=== PATIENT | male | born 1945 | race Caucasian/White ===

== ENCOUNTER 2018-12-01 19:44 | Inpatient (IN) | payer MEDICARE, OTHER, SELFPAY ==
[2018-12-01 19:50] VITALS: BP 154/79; PULSE 68; RESP 18; TEMP 36.7; O2SAT 93; BMI 27.3
--- NOTE | 2018-12-01 19:53 | DI.RAD.S_ITS ---
PROCEDURE: XR CHEST 1V INDICATIONS: chest pain TECHNIQUE: One view of the chest was acquired. COMPARISON: [facility], CT, CT CHEST WITHOUT CONTRAST, 06/17/2018, 7:58. [facility], CR, CHEST 1 VIEW, 03/25/2014, 16:53. CXR 05/08/2018. FINDINGS: Surgical changes and devices: None. Lungs and pleura: Low lung volumes. Increased interstitial markings bilaterally which are more conspicuous compared to prior radiograph. No pleural effusions or pneumothorax. Mediastinum: Mediastinal contours appear normal. Aortic arch calcifications. Heart size is mildly enlarged. Bones and chest wall: No suspicious bony lesions. Prior left sided rib fractures. Overlying soft tissues appear unremarkable. IMPRESSION: Increased bilateral interstitial markings. This may represent mild fluid overload or mild centrilobular groundglass opacity due to an infectious process which was seen on prior CT examinations. Dictated by: Mayco Patel M.D. on 12/01/2018 at 20:40 Approved by: Mayco Patel M.D. on 12/01/2018 at 20:44
--- NOTE | 2018-12-01 19:56 | ED.CHESTPAIN ---
HPI - Chest Pain General Chief Complaint: Chest Pain Stated Complaint: chest pain Time Seen by Provider: 12/01/18 19:53 Source: patient Mode of arrival: ambulatory Limitations: no limitations History of Present Illness HPI narrative: Patient is 73-year-old male with history of coronary artery disease stroke presenting with chest pain. It started 3 hours ago while at rest. He said it radiated to both armpits. On the drive over here it stopped. He denies any shortness of breath. He does have 2 stents placed at 2 different times in 2 different places once at [place] and once in [place]. He denies any nausea. No diaphoresis. MD complaint: chest pain Onset (ago): hour(s) (3) Duration: now resolved Onset: during rest Pain location: substernal Severity: severe Quality: tightness Pain radiation: other (Bilateral armpits) Relieving factors: nothing Exacerbating factors: nothing Related Data Allergies Allergy/AdvReac Type Severity Reaction Status Date / Time lisinopril [LISINOPRIL] Allergy Unknown Unverified 08/01/17 12:03 Review of Systems Review of Systems GENERAL: Denies chills, fatigue, malaise, fever, sweats, travel HEENT: Denies sinus pain, ear pain, sore throat, difficulty swallowing, neck pain RESPIRATORY: Denies dyspnea, cough, wheezing, hemoptysis, sputum. CARDIOVASCULAR: See HPI GASTROINTESTINAL: Denies nausea, vomiting, abdominal pain, diarrhea, constipation, melena. : Denies dysuria, frequency, incontinence, hematuria, urinary retention, flank pain. MUSCULOSKELETAL: Denies weakness, joint pain, or bony pain SKIN: No rash, no erythema, no pruritus NEUROLOGIC: Denies weakness, dizziness, headache, numbness, change in speech, confusion PSYCHIATRIC: No concerning psychosocial issues. 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) Family History (Updated 12/01/18 @ 23:16 by ANIBAL Brown) Mother Breast cancer Father Lung cancer Alcoholism in family member Social History (Updated 12/01/18 @ 19:59 by Molly Jim DO) Smoking Status: Never smoker second hand exposure: No alcohol intake: never substance use type: does not use Family History Mother Breast cancer Father Lung cancer Alcoholism in family member Social History Smoking Status: Never smoker second hand exposure: No alcohol intake: never substance use type: does not use Exam Initial Vital Signs Initial Vital Signs: Vital Signs Temperature 98.1 F 12/01/18 19:50 Pulse Rate 68 12/01/18 19:50 Respiratory Rate 18 12/01/18 19:50 Blood Pressure 154/79 H 12/01/18 19:50 Pulse Oximetry 93 12/01/18 19:50 GENERAL: Well-appearing, well-nourished and in no acute distress. HEENT: Head atraumatic,EOMI, pupils reactive, face symmetric, moist mucous membranes CARDIOVASCULAR: Regular rate and rhythm without murmurs, rubs or gallops. RESPIRATORY: Breath sounds equal bilaterally, no wheezes rales or rhonchi. ABDOMEN: Soft, nontender. Normoactive bowel sounds all 4 quadrants. No guarding or rebound. EXTREMITIES: Normal range of motion, no clubbing or edema. Neurovascularly intact NEUROLOGICAL: Alert and oriented x4.Normal gait and speech. Cranial nerves II through XII grossly intact. SKIN: Warm, dry, no laceration, no petechiae, no rashes or lesions. Course Orders Ordered: ED Orders 12/01/18 19:53 XR chest 1V Stat EKG-12 Lead Stat 12/01/18 20:00 B Type Natriuretic Peptide Stat Complete Blood Count AUTO DIFF Stat Comprehensive Metabolic Panel Stat Lipase Stat Partial Thromboplastin Time Stat Prothrombin Time INR Stat Troponin & CK Cardiac Panel Stat 12/01/18 21:49 Troponin I Stat 12/01/18 22:04 EKG-12 Lead Routine 12/01/18 22:46 Education, smoking cessation ONGOING 12/01/18 22:49 EC echo doppler complete Urgent 12/02/18 04:00 Troponin I Routine 12/02/18 05:00 B Type Natriuretic Peptide Routine Complete Blood Count AUTO DIFF Routine Comprehensive Metabolic Panel Routine 12/02/18 09:51 NM mike perf SPECT R&S pharm Urgent 12/02/18 09:52 EC echo doppler complete Urgent 12/02/18 10:00 Troponin I Routine Acetaminophen (Tylenol) 650 mg PO Q6HR PRN PRN Reason: As Needed for Fever/Mild Pain Aspirin (Aspirin Ec) 81 mg PO DAILY [facility] Bisacodyl (Dulcolax) 10 mg PO DAILY PRN PRN Reason: Constipation Enoxaparin Sodium (Lovenox) 40 mg SUBCUT DAILY [facility] Sodium Chloride (Normal Saline 0.9%) 1,000 mls @ 150 mls/hr IV CONT AGUSTINA Last Admin: 12/01/18 20:06 Dose: 150 mls/hr Morphine Sulfate (Morphine) 2 mg IV Q5MIN PRN PRN Reason: Chest Pain Nitroglycerin (Nitrostat) 0.4 mg SL [id number] PRN PRN Reason: Chest Pain Ondansetron HCl (Zofran) 4 mg IV Q8HR PRN PRN Reason: Nausea And Vomiting Discontinued Medications Aspirin (Aspirin Chew) 324 mg PO NOW ONE Stop: 12/01/18 19:54 Last Admin: 12/01/18 20:05 Dose: 324 mg Consultations Consultation #1: I spoke with hospitalist Dr. Bains at [facility]. He was able to look at patient's records. He had heart catheterization in July 2017 which did not show any stenosis. Stents appeared pain. He does have chronic occlusion of his right coronary artery. He saw Dr. Helton is commercial appraiser July 2017. He has stents in his LAD, no testing ordered at that time. States that nuclear stress test would be ordered here. If test is available [facility] no indication for transfer. Time: 20:53 Consultation #2: Dr. Uvaldo Garcia commercial appraiser at [facility], is updated patient's symptoms test results. At this time there is no indication for cardiac catheterization. Also recommends nuclear stress test Time: 21:05 Consultation #3: Paulette BARNETT, updated patient's symptoms test results finance consultant recommendations. In ED to see and evaluate patient. Patient is accepted to observation Time: 21:43 Vital Signs - 8 hr 12/01/18 19:50 12/01/18 20:30 12/01/18 21:00 Temperature 98.1 F Pulse Rate 68 56 L 58 L Respiratory Rate 18 22 17 Blood Pressure 154/79 H Blood Pressure [Right Arm] 134/58 L 140/61 Pulse Oximetry 93 94 97 12/01/18 21:30 Temperature Pulse Rate 57 L Respiratory Rate 19 Blood Pressure Blood Pressure [Right Arm] 131/60 Pulse Oximetry 93 MDM - Chest Pain Lab Data Attestation: I reviewed the patient's lab results. Result diagrams: 12/01/18 20:00 12/01/18 20:00 Lab Results 12/01/18 12/01/18 12/01/18 Range/Units 20:00 20:00 20:00 WBC 7.9 (4.5-11.0) X10^3/uL RBC 4.54 (4.5-5.9) X10^6/uL Hgb 13.9 (13.5-17.5) g/dL Hct 41.2 (41-53) % MCV 90.7 (80-100) fL MCH 30.7 (26-34) PG MCHC 33.9 (30-36) % RDW 17.1 H (11.6-14.8) % Plt Count 256 (150-400) X10^3/uL Neut % (Auto) 44.7 L (50-75) % Lymph % (Auto) 37.9 (25-40) % [place] % (Auto) 10.6 (3-14) % Eos % (Auto) 5.6 H (2-4) % Baso % (Auto) 1.2 (0-2) % Neut # (Auto) 3500 (7478-1548) /uL Lymph # (Auto) 3000 (7965-7822) /uL [place] # (Auto) 800 (0-900) /uL Eos # (Auto) 400 (0-450) /uL Baso # (Auto) 100 (0-100) /uL PT 13.6 H (10.1-12.7) SECONDS INR 1.2 (0.9-1.3) APTT 35 (26.4-36.2) SECONDS Sodium 142 (137-145) mmol/L Potassium 4.0 (3.4-5.1) mmol/L Chloride 107 (98-107) mmol/L Carbon Dioxide 29 (22-32) mmol/L BUN 29 H (9-20) mg/dL Creatinine 1.00 (0.66-1.25) mg/dL Estimated GFR > 60.0 (>60) mL/min BUN/Creatinine Ratio 29.0 H (6-22) Glucose 101 (80-110) mg/dL Calcium 9.1 (8.4-10.2) mg/dL Total Bilirubin 0.5 (0.2-1.3) mg/dL AST 25 (17-59) IU/L ALT 21 (21-72) IU/L Alkaline Phosphatase 85 (38-126) U/L Total Creatine Kinase 82 (55-170) U/L CK-MB (CK-2) TNP CK-MB (CK-2) Rel Index TNP Troponin I < 0.012 (0.01-0.034) ng/mL B-Natriuretic Peptide 176 H (<100) Total Protein 6.8 (6.3-8.2) g/dL Albumin 3.5 (3.5-5.0) g/dL Globulin 3.3 (1.7-4.1) g/dL Albumin/Globulin Ratio 1.1 (1.0-2.8) Lipase 66 (23-300) U/L 12/01/18 Range/Units 21:49 WBC (4.5-11.0) X10^3/uL RBC (4.5-5.9) X10^6/uL Hgb (13.5-17.5) g/dL Hct (41-53) % MCV (80-100) fL MCH (26-34) PG MCHC (30-36) % RDW (11.6-14.8) % Plt Count (150-400) X10^3/uL Neut % (Auto) (50-75) % Lymph % (Auto) (25-40) % [place] % (Auto) (3-14) % Eos % (Auto) (2-4) % Baso % (Auto) (0-2) % Neut # (Auto) (4874-2513) /uL Lymph # (Auto) (6885-3471) /uL [place] # (Auto) (0-900) /uL Eos # (Auto) (0-450) /uL Baso # (Auto) (0-100) /uL PT (10.1-12.7) SECONDS INR (0.9-1.3) APTT (26.4-36.2) SECONDS Sodium (137-145) mmol/L Potassium (3.4-5.1) mmol/L Chloride (98-107) mmol/L Carbon Dioxide (22-32) mmol/L BUN (9-20) mg/dL Creatinine (0.66-1.25) mg/dL Estimated GFR (>60) mL/min BUN/Creatinine Ratio (6-22) Glucose (80-110) mg/dL Calcium (8.4-10.2) mg/dL Total Bilirubin (0.2-1.3) mg/dL AST (17-59) IU/L ALT (21-72) IU/L Alkaline Phosphatase (38-126) U/L Total Creatine Kinase (55-170) U/L CK-MB (CK-2) CK-MB (CK-2) Rel Index Troponin I 0.016 (0.01-0.034) ng/mL B-Natriuretic Peptide (<100) Total Protein (6.3-8.2) g/dL Albumin (3.5-5.0) g/dL Globulin (1.7-4.1) g/dL Albumin/Globulin Ratio (1.0-2.8) Lipase (23-300) U/L Imaging Data Chest x-ray: Radiologist's impression: PROCEDURE: XR CHEST 1V INDICATIONS: chest pain TECHNIQUE: One view of the chest was acquired. COMPARISON: [facility], CT, CT CHEST WITHOUT CONTRAST, 06/17/2018, 7:58. [facility], CR, CHEST 1 VIEW, 03/25/2014, 16:53. CXR 05/08/2018. FINDINGS: Surgical changes and devices: None. Lungs and pleura: Low lung volumes. Increased interstitial markings bilaterally which are more conspicuous compared to prior radiograph. No pleural effusions or pneumothorax. Mediastinum: Mediastinal contours appear normal. Aortic arch calcifications. Heart size is mildly enlarged. Bones and chest wall: No suspicious bony lesions. Prior left sided rib fractures. Overlying soft tissues appear unremarkable. IMPRESSION: Increased bilateral interstitial markings. This may represent mild fluid overload or mild centrilobular groundglass opacity due to an infectious process which was seen on prior CT examinations. Dictated by: Mayco Patel M.D. on 12/01/2018 at 20:40 ECG Data Attestation: I personally reviewed and interpreted this ECG as follows: Prior ECG tracings: available for review Interpretation: Normal sinus rhythm rate 65 year interval 255 Q-wave noted lead [address] depressions no ST elevations no T-wave inversion EKG 2. Sinus rhythm rate 56 P are interval 274 similar to prior no ST changes 1st degree AV block noted in a previous EKG in 2014 MDM Narrative Medical decision making narrative: The patient has been chest pain-free since he has been in the emergency department. No acute EKG changes and troponin is negative. Discussed with patient and about staying in the hospital for further testing and evaluation. Discussed stress testing such as treadmill which he is unable to do because of his stroke nuclear stress test. states that she does not want a nuclear stress test because he had a nuclear stress test and then immediately after had his stroke. However I spoke with Cardiology and other consultants nuclear stress test and stroke are completely unrelated events, patient will be getting a nuclear stress test at [facility] if he were to be transferred. I have explained this to the and the patient. They are agreed to stay [facility] and have a nuclear stress test. Discharge Plan Departure Admit Date/Time: 12/01/18 21:54 Admit Provider: Nadya Mc
--- NOTE | 2018-12-01 19:59 | ED_ITS ---
HPI - Chest Pain General Chief Complaint: Chest Pain Stated Complaint: chest pain Time Seen by Provider: 12/01/18 19:53 Source: patient Mode of arrival: ambulatory Limitations: no limitations History of Present Illness HPI narrative: Patient is 73-year-old male with history of coronary artery disease stroke presenting with chest pain. It started 3 hours ago while at rest. He said it radiated to both armpits. On the drive over here it stopped. He denies any shortness of breath. He does have 2 stents placed at 2 different times in 2 different places once at [place] and once in [place]. He denies any nausea. No diaphoresis. MD complaint: chest pain Onset (ago): hour(s) (3) Duration: now resolved Onset: during rest Pain location: substernal Severity: severe Quality: tightness Pain radiation: other (Bilateral armpits) Relieving factors: nothing Exacerbating factors: nothing Related Data Allergies Allergy/AdvReac Type Severity Reaction Status Date / Time lisinopril [LISINOPRIL] Allergy Unknown Unverified 08/01/17 12:03 Review of Systems Review of Systems GENERAL: Denies chills, fatigue, malaise, fever, sweats, travel HEENT: Denies sinus pain, ear pain, sore throat, difficulty swallowing, neck pain RESPIRATORY: Denies dyspnea, cough, wheezing, hemoptysis, sputum. CARDIOVASCULAR: See HPI GASTROINTESTINAL: Denies nausea, vomiting, abdominal pain, diarrhea, constipation, melena. : Denies dysuria, frequency, incontinence, hematuria, urinary retention, flank pain. MUSCULOSKELETAL: Denies weakness, joint pain, or bony pain SKIN: No rash, no erythema, no pruritus NEUROLOGIC: Denies weakness, dizziness, headache, numbness, change in speech, confusion PSYCHIATRIC: No concerning psychosocial issues. 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) Family History (Updated 12/01/18 @ 23:16 by ANIBAL Brown) Mother Breast cancer Father Lung cancer Alcoholism in family member Social History (Updated 12/01/18 @ 19:59 by Molly Jim DO) Smoking Status: Never smoker second hand exposure: No alcohol intake: never substance use type: does not use Family History Mother Breast cancer Father Lung cancer Alcoholism in family member Social History Smoking Status: Never smoker second hand exposure: No alcohol intake: never substance use type: does not use Exam Initial Vital Signs Initial Vital Signs: Vital Signs Temperature 98.1 F 12/01/18 19:50 Pulse Rate 68 12/01/18 19:50 Respiratory Rate 18 12/01/18 19:50 Blood Pressure 154/79 H 12/01/18 19:50 Pulse Oximetry 93 12/01/18 19:50 GENERAL: Well-appearing, well-nourished and in no acute distress. HEENT: Head atraumatic,EOMI, pupils reactive, face symmetric, moist mucous membranes CARDIOVASCULAR: Regular rate and rhythm without murmurs, rubs or gallops. RESPIRATORY: Breath sounds equal bilaterally, no wheezes rales or rhonchi. ABDOMEN: Soft, nontender. Normoactive bowel sounds all 4 quadrants. No guarding or rebound. EXTREMITIES: Normal range of motion, no clubbing or edema. Neurovascularly intact NEUROLOGICAL: Alert and oriented x4.Normal gait and speech. Cranial nerves II through XII grossly intact. SKIN: Warm, dry, no laceration, no petechiae, no rashes or lesions. Course Orders Ordered: ED Orders 12/01/18 19:53 XR chest 1V Stat EKG-12 Lead Stat 12/01/18 20:00 B Type Natriuretic Peptide Stat Complete Blood Count AUTO DIFF Stat Comprehensive Metabolic Panel Stat Lipase Stat Partial Thromboplastin Time Stat Prothrombin Time INR Stat Troponin & CK Cardiac Panel Stat 12/01/18 21:49 Troponin I Stat 12/01/18 22:04 EKG-12 Lead Routine 12/01/18 22:46 Education, smoking cessation ONGOING 12/01/18 22:49 EC echo doppler complete Urgent 12/02/18 04:00 Troponin I Routine 12/02/18 05:00 B Type Natriuretic Peptide Routine Complete Blood Count AUTO DIFF Routine Comprehensive Metabolic Panel Routine 12/02/18 09:51 NM mike perf SPECT R&S pharm Urgent 12/02/18 09:52 EC echo doppler complete Urgent 12/02/18 10:00 Troponin I Routine Acetaminophen (Tylenol) 650 mg PO Q6HR PRN PRN Reason: As Needed for Fever/Mild Pain Aspirin (Aspirin Ec) 81 mg PO DAILY [facility] Bisacodyl (Dulcolax) 10 mg PO DAILY PRN PRN Reason: Constipation Enoxaparin Sodium (Lovenox) 40 mg SUBCUT DAILY [facility] Sodium Chloride (Normal Saline 0.9%) 1,000 mls @ 150 mls/hr IV CONT AGUSTINA Last Admin: 12/01/18 20:06 Dose: 150 mls/hr Morphine Sulfate (Morphine) 2 mg IV Q5MIN PRN PRN Reason: Chest Pain Nitroglycerin (Nitrostat) 0.4 mg SL [id number] PRN PRN Reason: Chest Pain Ondansetron HCl (Zofran) 4 mg IV Q8HR PRN PRN Reason: Nausea And Vomiting Discontinued Medications Aspirin (Aspirin Chew) 324 mg PO NOW ONE Stop: 12/01/18 19:54 Last Admin: 12/01/18 20:05 Dose: 324 mg Consultations Consultation #1: I spoke with hospitalist Dr. Bains at [facility]. He was able to look at patient's records. He had heart catheterization in July 2017 which did not show any stenosis. Stents appeared pain. He does have chronic occlusion of his right coronary artery. He saw Dr. Helton is platform operations director July 2017. He has stents in his LAD, no testing ordered at that time. States that nuclear stress test would be ordered here. If test is available [facility] no indication for transfer. Time: 20:53 Consultation #2: Dr. Uvaldo Garcia platform operations director [facility], is updated patient's symptoms test results. At this time there is no indication for cardiac catheterization. Also recommends nuclear stress test Time: 21:05 Consultation #3: Paulette BARNETT, updated patient's symptoms test results delivery consultant recommendations. In ED to see and evaluate patient. Patient is accepted to observation Time: 21:43 Vital Signs - 8 hr 12/01/18 19:50 12/01/18 20:30 12/01/18 21:00 Temperature 98.1 F Pulse Rate 68 56 L 58 L Respiratory Rate 18 22 17 Blood Pressure 154/79 H Blood Pressure [Right Arm] 134/58 L 140/61 Pulse Oximetry 93 94 97 12/01/18 21:30 Temperature Pulse Rate 57 L Respiratory Rate 19 Blood Pressure Blood Pressure [Right Arm] 131/60 Pulse Oximetry 93 MDM - Chest Pain Lab Data Attestation: I reviewed the patient's lab results. Result diagrams: 12/01/18 20:00 12/01/18 20:00 Lab Results 12/01/18 12/01/18 12/01/18 Range/Units 20:00 20:00 20:00 WBC 7.9 (4.5-11.0) X10^3/uL RBC 4.54 (4.5-5.9) X10^6/uL Hgb 13.9 (13.5-17.5) g/dL Hct 41.2 (41-53) % MCV 90.7 (80-100) fL MCH 30.7 (26-34) PG MCHC 33.9 (30-36) % RDW 17.1 H (11.6-14.8) % Plt Count 256 (150-400) X10^3/uL Neut % (Auto) 44.7 L (50-75) % Lymph % (Auto) 37.9 (25-40) % [place] % (Auto) 10.6 (3-14) % Eos % (Auto) 5.6 H (2-4) % Baso % (Auto) 1.2 (0-2) % Neut # (Auto) 3500 (8156-4756) /uL Lymph # (Auto) 3000 (2223-0458) /uL [place] # (Auto) 800 (0-900) /uL Eos # (Auto) 400 (0-450) /uL Baso # (Auto) 100 (0-100) /uL PT 13.6 H (10.1-12.7) SECONDS INR 1.2 (0.9-1.3) APTT 35 (26.4-36.2) SECONDS Sodium 142 (137-145) mmol/L Potassium 4.0 (3.4-5.1) mmol/L Chloride 107 (98-107) mmol/L Carbon Dioxide 29 (22-32) mmol/L BUN 29 H (9-20) mg/dL Creatinine 1.00 (0.66-1.25) mg/dL Estimated GFR > 60.0 (>60) mL/min BUN/Creatinine Ratio 29.0 H (6-22) Glucose 101 (80-110) mg/dL Calcium 9.1 (8.4-10.2) mg/dL Total Bilirubin 0.5 (0.2-1.3) mg/dL AST 25 (17-59) IU/L ALT 21 (21-72) IU/L Alkaline Phosphatase 85 (38-126) U/L Total Creatine Kinase 82 (55-170) U/L CK-MB (CK-2) TNP CK-MB (CK-2) Rel Index TNP Troponin I < 0.012 (0.01-0.034) ng/mL B-Natriuretic Peptide 176 H (<100) Total Protein 6.8 (6.3-8.2) g/dL Albumin 3.5 (3.5-5.0) g/dL Globulin 3.3 (1.7-4.1) g/dL Albumin/Globulin Ratio 1.1 (1.0-2.8) Lipase 66 (23-300) U/L 12/01/18 Range/Units 21:49 WBC (4.5-11.0) X10^3/uL RBC (4.5-5.9) X10^6/uL Hgb (13.5-17.5) g/dL Hct (41-53) % MCV (80-100) fL MCH (26-34) PG MCHC (30-36) % RDW (11.6-14.8) % Plt Count (150-400) X10^3/uL Neut % (Auto) (50-75) % Lymph % (Auto) (25-40) % [place] % (Auto) (3-14) % Eos % (Auto) (2-4) % Baso % (Auto) (0-2) % Neut # (Auto) (0306-2009) /uL Lymph # (Auto) (1516-6899) /uL [place] # (Auto) (0-900) /uL Eos # (Auto) (0-450) /uL Baso # (Auto) (0-100) /uL PT (10.1-12.7) SECONDS INR (0.9-1.3) APTT (26.4-36.2) SECONDS Sodium (137-145) mmol/L Potassium (3.4-5.1) mmol/L Chloride (98-107) mmol/L Carbon Dioxide (22-32) mmol/L BUN (9-20) mg/dL Creatinine (0.66-1.25) mg/dL Estimated GFR (>60) mL/min BUN/Creatinine Ratio (6-22) Glucose (80-110) mg/dL Calcium (8.4-10.2) mg/dL Total Bilirubin (0.2-1.3) mg/dL AST (17-59) IU/L ALT (21-72) IU/L Alkaline Phosphatase (38-126) U/L Total Creatine Kinase (55-170) U/L CK-MB (CK-2) CK-MB (CK-2) Rel Index Troponin I 0.016 (0.01-0.034) ng/mL B-Natriuretic Peptide (<100) Total Protein (6.3-8.2) g/dL Albumin (3.5-5.0) g/dL Globulin (1.7-4.1) g/dL Albumin/Globulin Ratio (1.0-2.8) Lipase (23-300) U/L Imaging Data Chest x-ray: Radiologist's impression: PROCEDURE: XR CHEST 1V INDICATIONS: chest pain TECHNIQUE: One view of the chest was acquired. COMPARISON: [facility], CT, CT CHEST WITHOUT CONTRAST, 06/17/2018, 7:58. [facility], CR, CHEST 1 VIEW, 03/25/2014, 16:53. CXR 05/08/2018. FINDINGS: Surgical changes and devices: None. Lungs and pleura: Low lung volumes. Increased interstitial markings bilaterally which are more conspicuous compared to prior radiograph. No pleural effusions or pneumothorax. Mediastinum: Mediastinal contours appear normal. Aortic arch calcifications. Heart size is mildly enlarged. Bones and chest wall: No suspicious bony lesions. Prior left sided rib fractures. Overlying soft tissues appear unremarkable. IMPRESSION: Increased bilateral interstitial markings. This may represent mild fluid overload or mild centrilobular groundglass opacity due to an infectious process which was seen on prior CT examinations. Dictated by: Mayco Patel M.D. on 12/01/2018 at 20:40 ECG Data Attestation: I personally reviewed and interpreted this ECG as follows: Prior ECG tracings: available for review Interpretation: Normal sinus rhythm rate 65 year interval 255 Q-wave noted lead [address] depressions no ST elevations no T-wave inversion EKG 2. Sinus rhythm rate 56 P are interval 274 similar to prior no ST changes 1st degree AV block noted in a previous EKG in 2014 MDM Narrative Medical decision making narrative: The patient has been chest pain-free since he has been in the emergency department. No acute EKG changes and troponin is negative. Discussed with patient and about staying in the hospital for further testing and evaluation. Discussed stress testing such as treadmill which he is unable to do because of his stroke nuclear stress test. states that she does not want a nuclear stress test because he had a nuclear stress test and then immediately after had his stroke. However I spoke with Cardiology and other consultants nuclear stress test and stroke are completely unrelated events, patient will be getting a nuclear stress test at [facility] if he were to be transferred. I have explained this to the and the patient. They are agreed to stay [facility] and have a nuclear stress test. Discharge Plan Departure Admit Date/Time: 12/01/18 21:54 Admit Provider: Nadya Mc
[2018-12-01] MEDS: ASPIRIN 81 MG TAB 324 MG PO (20:05)
[2018-12-01] MEDS: SODIUM CHLORIDE 0.9% 1,000 ML 150 ML IV (20:06)
[2018-12-01 20:09] LABS: Add Manual Diff / Slide Review NO; Basophils Absolute Auto 100 /uL (0-100); Basophils Percent Auto 1.2 % (0-2); Eosinophils Absolute Auto 400 /uL (0-450); Eosinophils Percent Auto 5.6 % (2-4); Hematocrit 41.2 % (41-53); Hemoglobin 13.9 g/dL (13.5-17.5); Lymphocytes Absolute Auto 3000 /uL (1100-4500); Lymphocytes Percent Auto 37.9 % (25-40); Mean Corpuscular HGB Conc 33.9 % (30-36); Mean Corpuscular Hemoglobin 30.7 PG (26-34); Mean Corpuscular Volume 90.7 fL (80-100); Monocytes Absolute Auto 800 /uL (0-900); Monocytes Percent Auto 10.6 % (3-14); Neutrophils Absolute Auto 3500 /uL (1500-7000); Neutrophils Percent Auto 44.7 % (50-75); Platelet Count 256 X10^3/uL (150-400); Red Blood Cell Count 4.54 X10^6/uL (4.5-5.9); Red Cell Distribution Width 17.1 % (11.6-14.8); White Blood Cell Count 7.9 X10^3/uL (4.5-11.0)
[2018-12-01 20:15] LABS: INR 1.2 (0.9-1.3); Prothrombin Time 13.6 SECONDS (10.1-12.7)
[2018-12-01 20:17] LABS: PTT Partial Thromboplastin Tim 35 SECONDS (26.4-36.2)
[2018-12-01 20:19] LABS: Alanine Aminotransferase 21 IU/L (21-72); Albumin 3.5 g/dL (3.5-5.0); Albumin Globulin Ratio 1.1 (1.0-2.8); Alkaline Phosphatase 85 U/L (38-126); Aspartate Aminotransferase 25 IU/L (17-59); Bilirubin Total 0.5 mg/dL (0.2-1.3); Blood Urea Nitrogen 29 mg/dL (9-20); Calcium 9.1 mg/dL (8.4-10.2); Carbon Dioxide 29 mmol/L (22-32); Chloride 107 mmol/L (98-107); Creatine Kinase 82 U/L (55-170); Estimated Glomerular Filt Rate > 60.0 mL/min (>60); Globulin 3.3 g/dL (1.7-4.1); Glucose 101 mg/dL (80-110); HEMOLYSIS < 15 (0-50); Lipase 66 U/L (23-300); Sodium 142 mmol/L (137-145); Total Protein 6.8 g/dL (6.3-8.2)
[2018-12-01 20:30] VITALS: BP 134/58; PULSE 56; RESP 22; O2SAT 94
[2018-12-01 20:31] LABS: B Type Natriuretic Peptide 176 (<100); Troponin I < 0.012 ng/mL (0.01-0.034)
[2018-12-01 21:00] VITALS: BP 140/61; PULSE 58; RESP 17; O2SAT 97
[2018-12-01 21:30] VITALS: BP 131/60; PULSE 57; RESP 19; O2SAT 93
[2018-12-01 22:19] LABS: Troponin I 0.016 ng/mL (0.01-0.034)
--- NOTE | 2018-12-01 23:04 | PM.HP.1 ---
History of Present Illness Date Patient Seen: 12/01/18 Time Patient Seen: 22:15 Chief complaint: chest pain Narrative: William Bridges is a 73-year-old male with history of coronary artery disease stroke who presented at around 1930 to the ED with chest pain. He said it is located mid-sternum and radiated to both arms. By the time he reached the ED, the pain stopped. He denies any, headache, cough, shortness of breath, nausea or vomiting, abdominal pain, diarrhea or constipation, numbing or tingling. He has a history of 2 coronary stents placed at 2 different times once at [place] and once in [place]. His paper machine supervisor is Dr. Mikel Helton in [place]. He does state he has diabetes insipidus and if he does not take his evening dose of despmopressin, he has to urinate all night. He sees Dr. Conte motor carrier inspector for this. He does endorse frequent falls, is diagnosed with spinal cerebellar ataxia and sees Dr. Ventura Carcamo, neurologist. 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) Social History (Updated 12/01/18 @ 19:59 by Molly Jim DO) Smoking Status: Never smoker second hand exposure: No alcohol intake: never substance use type: does not use Family & Social History Family History Mother Breast cancer Father Lung cancer Alcoholism in family member Safety & Behavioral: Feels Safe in Current Yes Environment Tobacco & Substance use: Smoking Status smokes 2 cigars/day alcohol intake Beer daily Substance Use Type does not use Meds Allergies Allergy/AdvReac Type Severity Reaction Status Date / Time lisinopril [LISINOPRIL] Allergy Unknown Unverified 08/01/17 12:03 Review of Systems Review of Systems All systems reviewed & are unremarkable except as noted in HPI and below Exam Vital Signs (past 8 hours): - 12/01/18 19:50 12/01/18 20:30 12/01/18 21:00 Temperature 98.1 F Pulse Rate 68 56 L 58 L Respiratory Rate 18 22 17 Blood Pressure 154/79 H Blood Pressure [Right Arm] 134/58 L 140/61 Pulse Oximetry 93 94 97 12/01/18 21:30 Temperature Pulse Rate 57 L Respiratory Rate 19 Blood Pressure Blood Pressure [Right Arm] 131/60 Pulse Oximetry 93 Oxygen Delivery Method Room Air Narrative Exam Narrative: Gen: Alert, oriented 73 y.o. chronically ill appearing male HEENT: normocephalic, atraumatic, left eyelid droop, oral mucosa pink and moist, poor dentition Neck: supple, full ROM Resp: Lungs CTA, non-labored breathing CV: Distant, murmur grade 2/6 Abd: soft, non-tender, normoactive BTs Skin: multiple bruises and superficial scratches Neuro: Alert and oriented X 3 with residual left sided weakness, very [place] Extremities: moves all 4 extremities, is ambulatory with a walking stick Psyche: normal mood and affect. Objective Labs Result Diagrams: 12/01/18 20:00 12/01/18 20:00 Labs: Laboratory Results - last 24 hr 12/01/18 12/01/18 12/01/18 20:00 20:00 20:00 WBC 7.9 RBC 4.54 Hgb 13.9 Hct 41.2 MCV 90.7 MCH 30.7 MCHC 33.9 RDW 17.1 H Plt Count 256 Neut % (Auto) 44.7 L Lymph % (Auto) 37.9 [facility] % (Auto) 10.6 Eos % (Auto) 5.6 H Baso % (Auto) 1.2 Neut # (Auto) 3500 Lymph # (Auto) 3000 [facility] # (Auto) 800 Eos # (Auto) 400 Baso # (Auto) 100 PT 13.6 H INR 1.2 APTT 35 Sodium 142 Potassium 4.0 Chloride 107 Carbon Dioxide 29 BUN 29 H Creatinine 1.00 Estimated GFR > 60.0 BUN/Creatinine Ratio 29.0 H Glucose 101 Calcium 9.1 Total Bilirubin 0.5 AST 25 ALT 21 Alkaline Phosphatase 85 Total Creatine Kinase 82 CK-MB (CK-2) TNP CK-MB (CK-2) Rel Index TNP Troponin I < 0.012 B-Natriuretic Peptide 176 H Total Protein 6.8 Albumin 3.5 Globulin 3.3 Albumin/Globulin Ratio 1.1 Lipase 66 12/01/18 21:49 WBC RBC Hgb Hct MCV MCH MCHC RDW Plt Count Neut % (Auto) Lymph % (Auto) [facility] % (Auto) Eos % (Auto) Baso % (Auto) Neut # (Auto) Lymph # (Auto) [facility] # (Auto) Eos # (Auto) Baso # (Auto) PT INR APTT Sodium Potassium Chloride Carbon Dioxide BUN Creatinine Estimated GFR BUN/Creatinine Ratio Glucose Calcium Total Bilirubin AST ALT Alkaline Phosphatase Total Creatine Kinase CK-MB (CK-2) CK-MB (CK-2) Rel Index Troponin I 0.016 B-Natriuretic Peptide Total Protein Albumin Globulin Albumin/Globulin Ratio Lipase Assessment & Plan Assessment & Plan narrative: William Bridges will be placed into observation for further evaluation of chest pain. Given his history of coronary artery disease, he is at high risk for a coronary event. 1. Chest pain, acute, present on admission First 2 troponins are negative, however second level is slightly elevated though within a normal range, trend 2 more ASA 81 mg daily Nuclear chemical stress test in the am Dr. Helton's partner Dr. Uvaldo Garcia notified of patient's admission and we will attempt to obtain records in the am. 2. Cardiac murmur, uknown if chronic, present on admission Doppler echo scheduled for the am Patient does not know when the last echo he underwent. 3. Essential hypertension, stable, present on admission Patient's med list did not include an anti-hypertensive, patient should be initiated on a beta julio. 4. Hyperlipidemia, chronic and stable Continue home dose of atorvastatin 20 mg po at bedtime 5. Diabetes insipidus, chronic and stable Patient takes desmopressin 0.2 tablets, 3 tabs tid Patient will be able to take his own supply once Pharmacy has approved. 6. Hypothyroidism, chronic and stable Continue home dose of levothyroxine 75 mcg when confirmed. 7. Mood disorder presumably related to his history of a CVA, chronic and stable Continue home dose of buspirone 15 mg po bid when confirmed Continue home dose of quitiapine 25 mg po bid, this will need to be confirmed as does not think he takes. Patient is admitted as observation as his stay is anticipated to not to exceed 2 midnights. FEN: saline lock, cardiac diet, chemistries in the am VTE Prophylaxis: enoxaparin 40 mg subQ daily Disposition: Unknown at this time Code status: Full Code Admission time: 75 minutes Meds reconciled: No, patient's medi list has not been confirmed. Time Spent With Patient Time with patient: 15-24 minutes Quality VTE Deep Vein Thrombosis/Pulmonary Embolism Present on Admission: No
--- NOTE | 2018-12-01 23:23 | P.HP_ITS ---
History of Present Illness Date Patient Seen: 12/01/18 Time Patient Seen: 22:15 Chief complaint: chest pain Narrative: William Bridges is a 73-year-old male with history of coronary artery disease stroke who presented at around 1930 to the ED with chest pain. He said it is located mid-sternum and radiated to both arms. By the time he reached the ED, the pain stopped. He denies any, headache, cough, shortness of breath, nausea or vomiting, abdominal pain, diarrhea or constipation, numbing or tingling. He has a history of 2 coronary stents placed at 2 different times once at [facility] and once in [place]. His manager foreign is Dr. Mikel Helton in [place]. He does state he has diabetes insipidus and if he does not take his evening dose of despmopressin, he has to urinate all night. He sees Dr. Conte manager hris for this. He does endorse frequent falls, is diagnosed with spinal cerebellar ataxia and sees Dr. Ventura Carcamo, neurologist. 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) Social History (Updated 12/01/18 @ 19:59 by Molly Jim DO) Smoking Status: Never smoker second hand exposure: No alcohol intake: never substance use type: does not use Family & Social History Family History Mother Breast cancer Father Lung cancer Alcoholism in family member Safety & Behavioral: Feels Safe in Current Yes Environment Tobacco & Substance use: Smoking Status smokes 2 cigars/day alcohol intake Beer daily Substance Use Type does not use Meds Allergies Allergy/AdvReac Type Severity Reaction Status Date / Time lisinopril [LISINOPRIL] Allergy Unknown Unverified 08/01/17 12:03 Review of Systems Review of Systems All systems reviewed & are unremarkable except as noted in HPI and below Exam Vital Signs (past 8 hours): - 12/01/18 19:50 12/01/18 20:30 12/01/18 21:00 Temperature 98.1 F Pulse Rate 68 56 L 58 L Respiratory Rate 18 22 17 Blood Pressure 154/79 H Blood Pressure [Right Arm] 134/58 L 140/61 Pulse Oximetry 93 94 97 12/01/18 21:30 Temperature Pulse Rate 57 L Respiratory Rate 19 Blood Pressure Blood Pressure [Right Arm] 131/60 Pulse Oximetry 93 Oxygen Delivery Method Room Air Narrative Exam Narrative: Gen: Alert, oriented 73 y.o. chronically ill appearing male HEENT: normocephalic, atraumatic, left eyelid droop, oral mucosa pink and moist, poor dentition Neck: supple, full ROM Resp: Lungs CTA, non-labored breathing CV: Distant, murmur grade 2/6 Abd: soft, non-tender, normoactive BTs Skin: multiple bruises and superficial scratches Neuro: Alert and oriented X 3 with residual left sided weakness, very YOMBA SHOSHONE Extremities: moves all 4 extremities, is ambulatory with a walking stick Psyche: normal mood and affect. Objective Labs Result Diagrams: 12/01/18 20:00 12/01/18 20:00 Labs: Laboratory Results - last 24 hr 12/01/18 12/01/18 12/01/18 20:00 20:00 20:00 WBC 7.9 RBC 4.54 Hgb 13.9 Hct 41.2 MCV 90.7 MCH 30.7 MCHC 33.9 RDW 17.1 H Plt Count 256 Neut % (Auto) 44.7 L Lymph % (Auto) 37.9 Titus % (Auto) 10.6 Eos % (Auto) 5.6 H Baso % (Auto) 1.2 Neut # (Auto) 3500 Lymph # (Auto) 3000 Titus # (Auto) 800 Eos # (Auto) 400 Baso # (Auto) 100 PT 13.6 H INR 1.2 APTT 35 Sodium 142 Potassium 4.0 Chloride 107 Carbon Dioxide 29 BUN 29 H Creatinine 1.00 Estimated GFR > 60.0 BUN/Creatinine Ratio 29.0 H Glucose 101 Calcium 9.1 Total Bilirubin 0.5 AST 25 ALT 21 Alkaline Phosphatase 85 Total Creatine Kinase 82 CK-MB (CK-2) TNP CK-MB (CK-2) Rel Index TNP Troponin I < 0.012 B-Natriuretic Peptide 176 H Total Protein 6.8 Albumin 3.5 Globulin 3.3 Albumin/Globulin Ratio 1.1 Lipase 66 12/01/18 21:49 WBC RBC Hgb Hct MCV MCH MCHC RDW Plt Count Neut % (Auto) Lymph % (Auto) Titus % (Auto) Eos % (Auto) Baso % (Auto) Neut # (Auto) Lymph # (Auto) Titus # (Auto) Eos # (Auto) Baso # (Auto) PT INR APTT Sodium Potassium Chloride Carbon Dioxide BUN Creatinine Estimated GFR BUN/Creatinine Ratio Glucose Calcium Total Bilirubin AST ALT Alkaline Phosphatase Total Creatine Kinase CK-MB (CK-2) CK-MB (CK-2) Rel Index Troponin I 0.016 B-Natriuretic Peptide Total Protein Albumin Globulin Albumin/Globulin Ratio Lipase Assessment & Plan Assessment & Plan narrative: William Bridges will be placed into observation for further evaluation of chest pain. Given his history of coronary artery disease, he is at high risk for a coronary event. 1. Chest pain, acute, present on admission * First 2 troponins are negative, however second level is slightly elevated though within a normal range, trend 2 more * ASA 81 mg daily * Nuclear chemical stress test in the am * Dr. Helton's partner Dr. Uvaldo Garcia notified of patient's admission and we will attempt to obtain records in the am. 2. Cardiac murmur, uknown if chronic, present on admission * Doppler echo scheduled for the am * Patient does not know when the last echo he underwent. 3. Essential hypertension, stable, present on admission * Patient's med list did not include an anti-hypertensive, patient should be initiated on a beta julio. 4. Hyperlipidemia, chronic and stable * Continue home dose of atorvastatin 20 mg po at bedtime 5. Diabetes insipidus, chronic and stable * Patient takes desmopressin 0.2 tablets, 3 tabs tid * Patient will be able to take his own supply once Pharmacy has approved. 6. Hypothyroidism, chronic and stable * Continue home dose of levothyroxine 75 mcg when confirmed. 7. Mood disorder presumably related to his history of a CVA, chronic and stable * Continue home dose of buspirone 15 mg po bid when confirmed * Continue home dose of quitiapine 25 mg po bid, this will need to be confirmed as does not think he takes. Patient is admitted as observation as his stay is anticipated to not to exceed 2 midnights. FEN: saline lock, cardiac diet, chemistries in the am VTE Prophylaxis: enoxaparin 40 mg subQ daily Disposition: Unknown at this time Code status: Full Code Admission time: 75 minutes Meds reconciled: No, patient's medi list has not been confirmed. Time Spent With Patient Time with patient: 15-24 minutes Quality VTE Deep Vein Thrombosis/Pulmonary Embolism Present on Admission: No
[2018-12-02] VITALS (7 sets, daily range): BP systolic 137–145; BP diastolic 61–69; PULSE 46–54; RESP 16; TEMP 36.3–36.8; O2SAT 95–98; BMI 26.9
[2018-12-02 05:35] LABS: Add Manual Diff / Slide Review NO; Basophils Absolute Auto 0 /uL (0-100); Basophils Percent Auto 0.7 % (0-2); Eosinophils Absolute Auto 300 /uL (0-450); Eosinophils Percent Auto 5.5 % (2-4); Hematocrit 39.5 % (41-53); Hemoglobin 13.4 g/dL (13.5-17.5); Lymphocytes Absolute Auto 2300 /uL (1100-4500); Lymphocytes Percent Auto 36.9 % (25-40); Mean Corpuscular HGB Conc 33.9 % (30-36); Mean Corpuscular Hemoglobin 30.9 PG (26-34); Mean Corpuscular Volume 91.2 fL (80-100); Monocytes Absolute Auto 600 /uL (0-900); Monocytes Percent Auto 9.8 % (3-14); Neutrophils Absolute Auto 2900 /uL (1500-7000); Neutrophils Percent Auto 47.1 % (50-75); Platelet Count 231 X10^3/uL (150-400); Red Blood Cell Count 4.33 X10^6/uL (4.5-5.9); Red Cell Distribution Width 17.2 % (11.6-14.8); White Blood Cell Count 6.1 X10^3/uL (4.5-11.0)
[2018-12-02 05:48] LABS: Alanine Aminotransferase 24 IU/L (21-72); Albumin Globulin Ratio 1.1 (1.0-2.8); Alkaline Phosphatase 71 U/L (38-126); Aspartate Aminotransferase 23 IU/L (17-59); Bilirubin Total 0.9 mg/dL (0.2-1.3); Blood Urea Nitrogen 32 mg/dL (9-20); Calcium 8.9 mg/dL (8.4-10.2); Carbon Dioxide 29 mmol/L (22-32); Chloride 107 mmol/L (98-107); Estimated Glomerular Filt Rate > 60.0 mL/min (>60); Globulin 2.7 g/dL (1.7-4.1); Glucose 91 mg/dL (80-110); HEMOLYSIS < 15 (0-50); Potassium 4.1 mmol/L (3.4-5.1); Sodium 142 mmol/L (137-145); Total Protein 5.7 g/dL (6.3-8.2)
[2018-12-02 05:55] LABS: B Type Natriuretic Peptide 268 (<100)
[2018-12-02 06:00] LABS: Troponin I 0.066 ng/mL (0.01-0.034)
--- NOTE | 2018-12-02 06:38 | PC.NURSE ---
Addendum entered by Ivette Casanova R.N. 12/02/18 06:54: Troponin is elevated this am, ANIBAL Mc is aware and ordered EKG. EKG done and Alexandro anticipates that pt will be transfered. Original Note: NOC NOTE: Pt arrived to the floor at approx 0050, meds added to med list but not confirmed with pharmacy, was unclear about several of the medications on list that she provided.Pt has been on tele and david, denies any chest pain. Pt is high fall risk due to ataxia and reports frequent falls at home. Pt has left side weakness related to previous CVA as well with some delay and garbled speech but pt is able to make needs known and is oriented.
--- NOTE | 2018-12-02 07:14 | P.DS_ITS ---
History of Present Illness Chief complaint: chest pain Narrative: William Bridges is a 73-year-old male with history of coronary artery disease stroke who presented at around 1930 to the ED with chest pain. He said it is located mid-sternum and radiated to both arms. By the time he reached the ED, the pain stopped. He denies any, headache, cough, shortness of breath, nausea or vomiting, abdominal pain, diarrhea or constipation, numbing or tingling. He has a history of 2 coronary stents placed at 2 different times once at [facility] and once in [place]. His aviation engineer is Dr. Mikel Helton in [place]. He does state he has diabetes insipidus and if he does not take his evening dose of despmopressin, he has to urinate all night. He sees Dr. Conte continuity director for this. He does endorse frequent falls, is diagnosed with spinal cerebellar ataxia and sees Dr. Ventura Carcamo, neurologist. Discharge Providers Date of admission: 12/01/18 21:54 Discharge Date: 12/02/18 Primary care physician: Vance Montoya MD Discharge provider: ANIBAL Brown Summary Discharge Diagnosis: 1. Chest pain, acute, present on admission 2. Cardiac murmur, unknown if chronic, present on admission 3. Essential hypertension, stable, present on admission 4. Hyperlipidemia, chronic and stable 5. Diabetes insipidus, chronic and stable 6. Hypothyroidism, chronic and stable 7. Mood disorder presumably related to his history of a CVA, chronic and stable Hospital Course: William Bridges was placed into observation for chest pain rule out. Serial troponins were trended and he was monitored on telemetry. His troponins have been slowly increasing, the third exceeding our reference range and over night has become increasingly bradycardic. 1. Chest pain, acute, present on admission * [place]'s aviation engineer was initially consulted by the ED, they recommended observation and nuclear stress testing in the am, so the patient was admitted for chest pain rule out. * First 2 troponins were negative, the third troponin resulted 0.066, more than double the previous. * He was given the ASA 81 in the ED, and was to start ASA 81 this am. * He was to undergo nuclear chemical stress test in the am, this has been cancelled. * Dr. Helton's partner Dr. Uvaldo Garcia notified of patient's admission and we will attempt to obtain records in the am. He requests transfer in order to do a left heart catheterization. Dr. Figueroa is the accepting hospitalist. 2. Asymptomatic bradycardia * Patient's admission heart rate was 68, overnight it trended down to the low 40s, repeat ECG did not indicate new findings, just bradycardia and a first degree heart block present on his admission ECG. 3. Cardiac murmur, uknown if chronic, present on admission * Doppler echo was scheduled. * Patient does not know when the last echo he underwent. 4. Essential hypertension, stable, present on admission * Patient's med list did not include an anti-hypertensive, patient was not initially placed on a beta julio due to his heart rate 5. Hyperlipidemia, chronic and stable * He was continued on his home dose of atorvastatin 20 mg po at bedtime 6. Diabetes insipidus, chronic and stable * He was continued on desmopressin 0.2 tablets, 3 tabs tid * Patient will be able to take his own supply once Pharmacy has approved. 7. Hypothyroidism, chronic and stable * He was to be continued on his home dose of levothyroxine 75 mcg after con firmation with his pharmacy 8. Mood disorder presumably related to his history of a CVA, chronic and stable * He was to continue home dose of buspirone 15 mg po bid when confirmed with his pharmacy * He takes quetiapine 25 mg po bid, this will need to be confirmed as does not think he takes. Time Spent with Patient Time spent discussing smoking cessation with patient: 3 to 10 minutes Exam Vital Signs (past 8 hours): - 12/02/18 01:18 12/02/18 02:56 12/02/18 06:00 Temperature 98.2 F 97.6 F Pulse Rate 54 L 49 L Respiratory Rate 16 16 Blood Pressure 145/61 H 140/65 Pulse Oximetry 95 95 97 Oxygen Delivery Method Room Air Oxygen Flow Rate 0 Narrative Exam Narrative: Gen: Patient is alert, oriented and undergoing an echocardiogram while I was in the room. CV: bradycardic with a holosystolic murmur heard loudest in the mid clavicular between the 4-5 ICS Neuro: Patient has a history of left sided deficits due to an old CVA, he as at his baseline. Objective Labs Result Diagrams: 12/02/18 05:12 12/02/18 05:12 Labs: Laboratory Results - last 24 hr 12/01/18 12/01/18 12/01/18 20:00 20:00 20:00 WBC 7.9 RBC 4.54 Hgb 13.9 Hct 41.2 MCV 90.7 MCH 30.7 MCHC 33.9 RDW 17.1 H Plt Count 256 Neut % (Auto) 44.7 L Lymph % (Auto) 37.9 Evangeline % (Auto) 10.6 Eos % (Auto) 5.6 H Baso % (Auto) 1.2 Neut # (Auto) 3500 Lymph # (Auto) 3000 Evangeline # (Auto) 800 Eos # (Auto) 400 Baso # (Auto) 100 PT 13.6 H INR 1.2 APTT 35 Sodium 142 Potassium 4.0 Chloride 107 Carbon Dioxide 29 BUN 29 H Creatinine 1.00 Estimated GFR > 60.0 BUN/Creatinine Ratio 29.0 H Glucose 101 Calcium 9.1 Total Bilirubin 0.5 AST 25 ALT 21 Alkaline Phosphatase 85 Total Creatine Kinase 82 CK-MB (CK-2) TNP CK-MB (CK-2) Rel Index TNP Troponin I < 0.012 B-Natriuretic Peptide 176 H Total Protein 6.8 Albumin 3.5 Globulin 3.3 Albumin/Globulin Ratio 1.1 Lipase 66 12/01/18 12/02/18 12/02/18 21:49 05:12 05:12 WBC 6.1 RBC 4.33 L Hgb 13.4 L Hct 39.5 L MCV 91.2 MCH 30.9 MCHC 33.9 RDW 17.2 H Plt Count 231 Neut % (Auto) 47.1 L Lymph % (Auto) 36.9 Evangeline % (Auto) 9.8 Eos % (Auto) 5.5 H Baso % (Auto) 0.7 Neut # (Auto) 2900 Lymph # (Auto) 2300 Evangeline # (Auto) 600 Eos # (Auto) 300 Baso # (Auto) 0 PT INR APTT Sodium Potassium Chloride Carbon Dioxide BUN Creatinine Estimated GFR BUN/Creatinine Ratio Glucose Calcium Total Bilirubin AST ALT Alkaline Phosphatase Total Creatine Kinase CK-MB (CK-2) CK-MB (CK-2) Rel Index Troponin I 0.016 0.066 H B-Natriuretic Peptide 268 H Total Protein Albumin Globulin Albumin/Globulin Ratio Lipase 12/02/18 05:12 WBC RBC Hgb Hct MCV MCH MCHC RDW Plt Count Neut % (Auto) Lymph % (Auto) Evangeline % (Auto) Eos % (Auto) Baso % (Auto) Neut # (Auto) Lymph # (Auto) Evangeline # (Auto) Eos # (Auto) Baso # (Auto) PT INR APTT Sodium 142 Potassium 4.1 Chloride 107 Carbon Dioxide 29 BUN 32 H Creatinine 0.80 Estimated GFR > 60.0 BUN/Creatinine Ratio 40.0 H Glucose 91 Calcium 8.9 Total Bilirubin 0.9 AST 23 ALT 24 Alkaline Phosphatase 71 Total Creatine Kinase CK-MB (CK-2) CK-MB (CK-2) Rel Index Troponin I B-Natriuretic Peptide Total Protein 5.7 L Albumin 3.0 L Globulin 2.7 Albumin/Globulin Ratio 1.1 Lipase Discharge Plan Discharge Plan Patient Disposition: [facility] Transfer to: [facility] Under care of provider: Dr. Figueroa, Hospitalist accepting, Dr. Esteban Dinkey Operator Slate Discharge Med Rec/Prescriptions Prescriptions: Continued aspirin 81 mg Tablet,Delayed Release (Dr/Ec) 81 mg PO DAILY RF: 0 atorvastatin 20 mg Tablet 20 mg PO DAILY RF: 0 buspirone 7.5 mg Tablet 7.5 mg PO BID RF: 0 calcium carbonate RF: 0 cholecalciferol (vitamin D3) RF: 0 desmopressin 0.2 mg Tablet 0.2 mg PO BID RF: 0 furosemide 20 mg Tablet 20 mg PO DAILY RF: 0 levothyroxine 75 mcg Tablet 75 mcg PO DAILY RF: 0 quetiapine 25 mg Tablet 25 mg PO BID RF: 0 Follow up/Referrals: Vance Montoya MD [Primary Care Provider] - Discharge Data Primary Care Provider: Vance Montoya Attending Provider: Nadya Mc Admit Date/Time: 12/01/18 21:54 Quality VTE Deep Vein Thrombosis/Pulmonary Embolism Present on Admission: No
--- NOTE | 2018-12-02 07:52 | PC.NURSE ---
Addendum entered by Evelyne Raymundo R.N. 12/02/18 09:56: Transfer: Tele dc'd and transport staff immediately placed on their monitor. Peripheral IV left in place. All personal belongings, including home meds from pharmacy, sent with patient at d/c. Assisted onto [facility] and taken out by ambulance staff. Report called to Bianca at [facility]. Will call his w/ update. Addendum entered by Evelyne Raymundo R.N. 12/02/18 08:37: Alert and oriented X3. Continues to deny chest pain or any other complaints. Plan is to transfer to [facility] approx 0915- patient made aware and is agreeable. This conventional underwriter spoke w/ patient's Elise via phone and updated re: POC. Patient resting in bed, talking to at this time. Call light and urinal within reach, bed alarm active. Original Note: Shift summary: Resting quietly in bed, ECHO being done at this time. Patient denies chest pain/pressure/palpitations, denies shortness of breath. Tele monitoring ongoing, HR 49. Cont pulse ox in place, sats 97-98% on room air. Notified patient of new NPO order and possible transfer to [place] (Hospitalist awaiting call back from cardiology). Encouraged to call with needs. Light in reach, bed alarm on.
--- NOTE | 2018-12-02 08:56 | CM.DANOTE ---
DCP: Case received, EMR reviewed and met with patient. Introduced self and role. Was able to obtain some baseline history and living situation from patient. DCP assessment completed with information currently available. Patient is a 73 year old male who admitted yesterday evening to the care of the hospitalist team. PCP: Dr. Montoya. Payer: confirmed; Medicare/[facility]. Patient came to the hospital via family vehicle secondary to chest pain. Patient has history of Diabetes Insipidus, Cerebellar Ataxia, and CVA, as well as a mood disorder which is stabilized. Patient is also under the care of an six sigma black belt engineer, Dr. Conte, and sees a neurologist as well. He also has history of frequent falls. Patient is going to be transferred to [facility], for possible cardiac cath. Met briefly with patient in his room. Pleasant, alert and oriented. He resides in [facility] [facility] withhis spouse, Elise. He stated that he no longer drives, and his takes him to his appts. He mentioned that he uses a walking stick for ambulation. P: Patient is to be transferred via ambulance to [facility] in [place]. Patient is aware of transfer. Aide Lawler RN/Legal Services Manager
--- NOTE | 2018-12-02 09:52 | DI.ECHO.S_ITS ---
[facility]---------+ [facility] +---------+ : : [address] [place] : : : : [id number] : : : : Phone: [phone]---------+ Echocardiogram Report + + :Name: HOUSTON INMAN Study Date: 12/02/2018 Height: 72 in : :[facility] Weight: 200 lb : : Gender: Male BSA: 2.1 m2 : :: 1945 Age: 73 yrs BP: 145/61 mmHg: :Reason For Study: Chest pain : : Performed By: Carolina Arambula : :Referring: STEFANO NELSON : + + Interpretation Summary Mild concentric left ventricular hypertrophy with ejection fraction 60-65%. Grade I diastolic dysfunction. Moderately dilated left atrium. Moderate to severe aortic stenosis. Mild aortic regurgitation. Mild mitral annular calcification. Moderate mitral regurgitation. Mild tricuspid regurgitation. Procedure: A two-dimensional transthoracic echocardiogram with color flow and Doppler was performed. The study quality was technically adequate. The patient was in a bradycardic rhythm during the exam. The heart rate ranged between 44-46 bpm during the study. Left Ventricle: The left ventricle is normal in size. There is mild concentric left ventricular hypertrophy. The ejection fraction is estimated to be 60-65%. There are no obvious focal wall motion abnormalities noted but poor endocardial definition reduces the sensitivity for the detection of such. Diastolic parameters suggest a relaxation abnormality of the left ventricle, consistent with probable normal filling pressures. Right Ventricle: The right ventricle grossly appears normal in size with probable normal systolic function. Atria: The left atrium is moderately dilated. Right atrial size is normal. The interatrial septum is intact with no evidence for an atrial septal defect. Mitral Valve: The mitral valve leaflets appear mildly thickened, but open well. The mitral valve leaflets are slightly calcified. There is mild mitral annular calcification. There is moderate mitral regurgitation. Aortic Valve: There is moderate to severe aortic stenosis. The calculated aortic valve area is 1.0 cm2. The aortic valve area is 1.0 centimeters squared by planimetry. The peak aortic velocity is 3.4 m/sec. The aortic valve mean gradient is 26 mmHg. Severity ratio is 0.26. There is mild aortic regurgitation. Tricuspid Valve: The tricuspid valve leaflets are thin and pliable. There is mild tricuspid regurgitation. Pulmonic Valve: The pulmonic valve is not well visualized. Great Vessels: The aortic root is borderline dilated. The ascending aorta could not be visualized. The aortic arch is at the upper limits of normal in size. Pericardium/ Pleura There is no pericardial effusion. There is no pleural effusion. MMode/2D Measurements & Calculations LVIDd: 5.5 cm LVOT diam: 2.2 cm LVIDs: 2.9 cm Ao root diam: 3.8 cm FS: 47.4 % Ao Arch Diam (Prox Trans): 3.2 cm IVSd: 1.4 cm LVPWd: 0.88 cm LV lagos. diameter/BSA (cm/m^2): 2.6 LV sys. diameter/BSA (cm/m^2): 1.4 LA dimension: 5.2 cm RA long axis: 6.2 cm LA A2 area: 27.9 cm2 RA area: 22.8 cm2 LA A4 area: 27.5 cm2 RA vol: 70.9 ml LA length (vol): 6.4 cm RA : 33.3 ml/m2 LA vol: 102.4 ml IVC diam: 1.7 cm LA vol index: 48.1 ml/m2 RVDd major: 6.3 cm RVD1 (basal): 3.4 cm RVD2 (mid): 2.9 cm MILI (plan): 1.0 cm2 Doppler Measurements & Calculations Ao V2 max: 336.2 cm/sec LVOT Max Reji: 87.6 cm/sec Ao V2 mean: 236.9 cm/sec LV V1 max P.1 mmHg Ao max P.2 mmHg LV V1 VTI: 26.0 cm Ao mean P.0 mmHg MILI(I,D): 1.0 cm2 Ao V2 VTI: 101.1 cm MILI(V,D): 1.0 cm2 sev ratio: 0.26 MILI indexed to BSA (cm^2/m^2): 0.47 AI P1/2t: 674.4 msec AI dec slope: 161.4 cm/sec2 MV E max reji: 55.0 cm/sec TR max reji: 242.8 cm/sec MV A max reji: 71.1 cm/sec TR max P.6 mmHg MV E/A: 0.77 Med Peak E' Reji: 5.5 cm/sec E/E' med: 10.1 Lat Peak E' Reji: 8.6 cm/sec E/E' lat: 6.4 E/e' average: 8.2 MV dec time: 0.38 sec MV P1/2t: 111.0 msec MR ERO: 0.20 cm2 MV P1/2t max reji: 54.7 cm/sec MR flow rate: 105.8 cm3/sec MVA(P1/2t): 2.0 cm2 MR PISA radius: 0.66 cm SV(LVOT): 101.7 ml Electronically signed by: Bruno Byrd on Reading Physician:12/02/2018 01:02 PM
== END 2018-12-02 09:59 | disposition short-term general hospital (02) | DRG 281 ==
LOC: ED 19:53 → AC 12-02 07:34
PROVIDERS: Admitting Provider Nurse Practitioner Family; Emergency Provider Emergency Medicine; PCP Internal Medicine; Visit Provider Nurse Practitioner Family
DX: I21.9 Acute myocardial infarction, unspecified (principal); E23.2 Diabetes insipidus; I69.354 Hemiplegia and hemiparesis following cerebral infarction affecting left non-dominant side; R00.1 Bradycardia, unspecified; I44.0 Atrioventricular block, first degree; I25.10 Atherosclerotic heart disease of native coronary artery without angina pectoris; E03.9 Hypothyroidism, unspecified; I10 Essential (primary) hypertension; E78.5 Hyperlipidemia, unspecified
CPT/HCPCS: 36415; 36591; 71045; 80053; 82550; 83690; 83880; 84484; 85025; 85610; 85730; 93005; 93010; 93306; 94762; 99283

== ENCOUNTER 2019-07-03 10:00 | Outpatient (RCR) | payer MEDICARE, OTHER, SELFPAY ==
[2018-12-02 01:05] VITALS: BMI 26.9
== END 2019-07-07 14:45 ==
LOC: CAR 10:00
PROVIDERS: PCP Internal Medicine; Visit Provider Internal Medicine Interventional Cardiology
DX: I20.9 Angina pectoris, unspecified (principal)
CPT/HCPCS: 93798

== ENCOUNTER 2021-01-28 16:43 | Inpatient (IN) | payer MEDICARE, OTHER, SELFPAY ==
[2018-12-02 01:05] VITALS: BMI 26.9
[2021-01-28] VITALS (17 sets, daily range): BP systolic 118–134; BP diastolic 58–65; PULSE 46–55; RESP 16–27; TEMP 36.4–36.8; O2SAT 90–97; BMI 27.1
--- NOTE | 2021-01-28 17:01 | DI.RAD.S_ITS ---
PROCEDURE: XR CHEST 1V INDICATIONS: chest pain TECHNIQUE: One view of the chest was acquired. COMPARISON: [facility], CR, XR CHEST 1V, 12/01/2018, 20:17. FINDINGS: Surgical changes and devices: Median sternotomy. Lungs and pleura: Mild patchy bilateral perihilar and basilar airspace opacity. No pleural effusions or pneumothorax. Mediastinum: Mediastinal contours appear normal. Heart size is normal. Bones and chest wall: No suspicious bony lesions. Overlying soft tissues appear unremarkable. IMPRESSION: Mild bilateral pneumonia. Dictated by: Bran García M.D. on 01/28/2021 at 17:41 Approved by: Bran García M.D. on 01/28/2021 at 17:42
--- NOTE | 2021-01-28 17:02 | DI.CT.S_ITS ---
PROCEDURE: CT HEAD/BRAIN WO CON INDICATIONS: decreased responsiveness TECHNIQUE: Noncontrast 4.5 mm thick angled axial sections acquired from the foramen magnum to the vertex, with coronal and sagittal reformats. For radiation dose reduction, the following was used: automated exposure control, adjustment of mA and/or kV according to patient size. COMPARISON: [facility], CT, CT HEAD WITHOUT CONTRAST, 05/04/2020, 12:58. [facility], CT, HEAD WITHOUT CONTRAST, 03/25/2014, 16:48. FINDINGS: Image quality: Excellent. CSF spaces: Basal cisterns are patent. No extra-axial fluid collections. The ventricles are symmetric in size and shape. Brain: No intracranial bleeds or masses. There is cerebral volume loss for age, with resultant ventricular and sulcal prominence. There are periventricular and deep white matter chronic small vessel ischemic changes. There is intracranial internal carotid artery atherosclerosis. Skull and face: Calvarium and visualized facial bones appear intact, without suspicious lesions. Sinuses: Visualized sinuses and mastoids are clear. IMPRESSION: No acute intracranial abnormality. Dictated by: Bran García M.D. on 01/28/2021 at 17:40 Approved by: Bran García M.D. on 01/28/2021 at 17:41
--- NOTE | 2021-01-28 17:11 | ED.NEUROSD ---
HPI - Neuro Symptoms/Deficit <Daisy Cooper, DO - Last Filed: 01/29/21 14:41> General Chief Complaint: Neuro Symptoms/Deficit Stated Complaint: WAS NOT RESPONDING IN THE CAR Time Seen by Provider: 01/28/21 17:02 Source: patient and family Mode of arrival: Family Vehicle Limitations: no limitations History of Present Illness HPI Narrative: This is a 75-year-old male with known spinal cerebellar ataxia, diabetes insipidus, coronary artery bypass with valve replacement and planned watchman device being placed on February 17 and chronic bradycardia. Patient was car with his today. They were running errands and patient fell asleep in the car which is not atypical. states that they ran several errands and when she tried to wake him up would not awaken. She drove him here. Nursing staff was able to awaken him to transfer to wheelchair. Patient typically does use a walker for ambulation but performs all other ADLs without assistance. He follows with Dr. Ventura Carcamo for his trip rider and Dr. Eastman for his cardiology at [place]. Patient has had a cough for the past week which has been nonproductive. He has been afebrile. He has not been altered different in any way prior to today. He is back at his normal baseline mentation according to him and his in the room. Patient denies any chest pain or pressure. No syncope or lightheadedness. No nausea or vomiting. He had 1 episode of diarrhea on Sunday, today is Sunday. Patient has not had any black or bloody stools. He denies dysuria, urgency or frequency. He has had some chronic urinary retention in the past not persistently. He has had lithotripsy before for kidney stones but they were told his kidneys were ?okay.? He is on warfarin+ asa 81mg, atorvastatin, desmopressin, Lasix, levothyroxine and quetiapine. Patient has not had any new acute medication changes. He smokes cigars, occasional alcohol, no illicit. On Anticoagulants: Yes Related Data Home Medications Medication Instructions Recorded Confirmed aspirin 81 mg tablet,delayed 81 mg PO DAILY 12/02/18 01/28/21 release atorvastatin 20 mg tablet 20 mg PO DAILY 12/02/18 01/28/21 buspirone 7.5 mg tablet 7.5 mg PO BID 12/02/18 01/28/21 cholecalciferol (vitamin D3) 1,000 units PO BID 12/02/18 01/28/21 desmopressin 0.2 mg tablet 0.6 mg PO BID 12/02/18 01/28/21 levothyroxine 75 mcg tablet 75 mcg PO DAILY 12/02/18 01/28/21 warfarin 2.5 mg tablet See Rx Instructions PO DAILY 05/13/20 01/28/21 Allergies Allergy/AdvReac Type Severity Reaction Status Date / Time lisinopril [LISINOPRIL] Allergy Unknown Verified 01/28/21 16:54 Review of Systems <Daisy Cooper DO - Last Filed: 01/29/21 14:41> Review of Systems ROS Unobtainable: All systems reviewed & are unremarkable except as noted in HPI and below Hematologic/Lymphatic On Anticoagulants: Yes Patient History <Daisy Cooper DO - Last Filed: 01/29/21 14:41> Medical History (Updated 01/29/21 @ 03:58 by PASQUALE Badillo) Cerebellar ataxia Chest pain due to CAD Coronary artery disease CVA (cerebral vascular accident) Diabetes insipidus Hypothyroidism 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) Non-insulin dependent type 2 diabetes mellitus Prostate cancer Surgical History (Updated 01/29/21 @ 03:58 by PASQUALE Badillo) History of heart artery stent History of heart bypass surgery Family History Mother Breast cancer Father Lung cancer Alcoholism in family member Social History household members: spouse Smoking Status: Current every day smoker second hand exposure: No alcohol intake: never substance use type: does not use Smoking Status: Current every day smoker tobacco type: cigars alcohol intake frequency: holidays/special occasions only Substance Use Type: does not use Exam <Daisy Cooper DO - Last Filed: 01/29/21 14:41> Narrative Exam Narrative: GEN: well nourished, well appearing male, alert and oriented x 3, patient appears to be in mild distress. HEENT: Atraumatic, pupils are equal round reactive to light, extraocular movements are intact, nares are clear, TMs are clear with no fluid, there is no conjunctival pallor. Throat is clear without any exudates, erythema, tonsillar enlargement or uvular deviation, no facial droop appreciated. HEART: Regular rate and rhythm without murmur, clicks, rubs. Pulses are equal in upper extremities LUNGS:Lungs clear to auscultation, no wheezes, rales, crackles, chest moves symmetrically, no tachypnea or accessory muscle use, patient has deep, wet nonproductive cough ABD:bowel sounds normal, soft, non-tender, no guarding, rebound, rigidity, no masses noted, no hepatosplenomegaly, non-distended. :No CVA tenderness MSCL: Non-tender, no muscle atrophy, muscles strength 5/5 upper and lower extremities, full range of motion NEURO:CN 2-12 intact, sensation normal SKIN: No rash, erythema or other skin changes noted. Initial Vital Signs Initial Vital Signs: Vital Signs Temperature 98.2 F 01/28/21 16:45 Pulse Rate 46 L 01/28/21 16:45 Respiratory Rate 18 01/28/21 16:45 Blood Pressure 134/65 01/28/21 16:45 Pulse Oximetry 96 01/28/21 16:45 <Michael Jefferson MD - Last Filed: 01/29/21 06:44> Initial Vital Signs Initial Vital Signs: Vital Signs Temperature 98.2 F 01/28/21 16:45 Pulse Rate 46 L 01/28/21 16:45 Respiratory Rate 18 01/28/21 16:45 Blood Pressure 134/65 01/28/21 16:45 Pulse Oximetry 96 01/28/21 16:45 Scores <Daisy Cooper DO - Last Filed: 01/29/21 14:41> GCS [place] coma scale eye opening: Spontaneous Myesha coma scale verbal response: Orientated [place] coma scale motor response: Obey commands Myesha coma scale total score: 15 <Michael Jefferson MD - Last Filed: 01/29/21 06:44> GCS [place] coma scale total score: 15 Course <Daisy Cooper DO - Last Filed: 01/29/21 14:41> Orders Ordered: Acetaminophen (Acetaminophen 325 Mg Tablet) 650 mg PO Q6HR PRN PRN Reason: Fever/Mild Pain (1-3) Al Hydrox/Mg Hydrox/Simethicone (Mag Hydrox/Alum/Simeth 30 Ml Udc) 30 ml PO Q6HR PRN PRN Reason: Dyspepsia Aspirin (Aspirin Ec 81 Mg Tablet) 81 mg PO DAILY [facility] Last Admin: 01/29/21 08:30 Dose: 81 mg Documented by: TBRENEE Atorvastatin Calcium (Atorvastatin 20 Mg Tablet) 20 mg PO DAILY [facility] Last Admin: 01/29/21 08:32 Dose: 20 mg Documented by: YOLANDA Buspirone HCl (Buspirone 5 Mg Tablet) 7.5 mg PO BID [facility] Last Admin: 01/29/21 08:30 Dose: 7.5 mg Documented by: Admin: 01/28/21 23:01 Dose: 7.5 mg Documented by: CTRTANISHA Calcium Carbonate (Calcium Carbonate 500 Mg Tab) 1,000 mg PO Q4HR PRN PRN Reason: Dyspepsia Desmopressin Acetate (Desmopressin 0.2 Mg Tablet) 0.6 mg PO BID [facility] Last Admin: 01/29/21 09:28 Dose: 0.6 mg Documented by: Admin: 01/28/21 23:22 Dose: Not Given Documented by: CTRTANISHA Ceftriaxone Sodium 1,000 mg/ (Sodium Chloride) 100 mls @ 200 mls/hr IV Q24H [facility] Doxycycline Hyclate 100 mg/ (Sodium Chloride) 100 mls @ 100 mls/hr IV Q12H [facility] Last Infusion: 01/29/21 10:40 Dose: 0 mls/hr Documented by: Admin: 01/29/21 09:28 Dose: 100 mls/hr Documented by: YOLANDA Lactated Ringer's (Lactated Ringers) 1,000 mls @ 60 mls/hr IV CONT [facility] Last Infusion: 01/29/21 10:40 Dose: 0 mls/hr Documented by: Admin: 01/29/21 00:02 Dose: 100 mls/hr Documented by: CTRTANISHA Levothyroxine Sodium (Levothyroxine 75 Mcg Tablet) 75 mcg PO DAILY [facility] Last Admin: 01/29/21 08:30 Dose: 75 mcg Documented by: TBRENEE Magnesium Hydroxide (Magnesium Hydroxide 30 Ml Udc) 30 ml PO DAILY PRN PRN Reason: Constipation Naloxone HCl (Naloxone 0.4 Mg/Ml Vial) 0.2 mg IV Q2MIN PRN PRN Reason: Opiate Reversal Ondansetron HCl (Ondansetron 4 Mg/2 Ml Inj) 4 mg IV Q8HR PRN PRN Reason: Nausea And Vomiting Prednisone (Prednisone 20 Mg Tablet) 40 mg PO DAILY [facility] Stop: 02/03/21 08:59 Last Admin: 01/29/21 08:30 Dose: 40 mg Documented by: YOLANDA Sennosides (Sennosides 8.6 Mg Tablet) 17.2 mg PO BEDTIME [facility] Last Admin: 01/28/21 21:48 Dose: Not Given Documented by: CTRTANISHA Warfarin Sodium (Warfarin 5 Mg Tablet) 2.5 mg PO TuTh@1700 [facility] Warfarin Sodium (Warfarin 5 Mg Tablet) 3.75 mg PO SuMoWeFrSa@1700 [facility] Discontinued Medications Heparin Sodium (Porcine) (Heparin 5,000 Unit/Ml Vial) 5,000 unit SUBCUT BID [facility] Ceftriaxone Sodium 2,000 mg/ (Sodium Chloride) 100 mls @ 200 mls/hr IV NOW ONE Stop: 01/28/21 17:59 Last Infusion: 01/28/21 18:49 Dose: 0 mls/hr Documented by: Admin: 01/28/21 18:07 Dose: 200 mls/hr Documented by: KEVINI Sodium Chloride (Normal Saline 0.9%) 1,000 mls @ 1,000 mls/hr IV BOLUS ONE Stop: 01/28/21 19:30 Last Infusion: 01/28/21 20:09 Dose: 0 mls/hr Documented by: Admin: 01/28/21 18:51 Dose: 1,000 mls/hr Documented by: HETAL Vancomycin HCl/Dextrose (Vancomycin) 1,500 mg in 300 mls @ 200 mls/hr IV NOW ONE Stop: 01/28/21 21:32 Last Infusion: 01/29/21 07:35 Dose: 0 mls/hr Documented by: Infusion: 01/28/21 21:03 Dose: 200 mls/hr Documented by: Admin: 01/28/21 20:13 Dose: 200 mls/hr Documented by: KEVINI Sodium Chloride (Normal Saline 0.9%) 1,000 mls @ 150 mls/hr IV CONT [facility] Last Admin: 01/28/21 21:07 Dose: Not Given Documented by: HETAL Lactated Ringer's (Lactated Ringers) 1,000 mls @ 1,000 mls/hr IV BOLUS ONE Stop: 01/28/21 23:48 Last Infusion: 01/29/21 00:03 Dose: 0 mls/hr Documented by: Admin: 01/28/21 23:01 Dose: 1,000 mls/hr Documented by: MELO Tamsulosin HCl (Tamsulosin 0.4 Mg Capsule) 0.4 mg PO NOW ONE Stop: 01/28/21 19:08 Last Admin: 01/28/21 19:17 Dose: 0.4 mg Documented by: HETAL Reevaluation(s) Reevaluation #1: Patient creatinine is 2, patient's prior from 2019 is in normal range. Patient family states that he has had injury in the past but they are unaware of recent kidney problems. He has had kidney stones in required lithotripsy in intervention and was on amoxicillin for about 2 months. He has also has obvious pneumonia on chest x-ray which fits with his deep wet nonproductive cough. Patient was started on IV Rocephin. CT KUB was obtained, lactate blood cultures are added on a patient was given a L of fluids. His heart rates been in the 40s to 50s persistently and his states this is very much normal. Attempting to reach out to [facility] to obtain recent BMP. Time: 18:38 Consultations Consultation #1: Dr. Lombardi, urology Consultation #2: CHRISTIANO Viramontes, accepts if we have urology accepting and will follow patient in the department. Vital Signs Vital signs: Vital Signs - 8 hr 01/28/21 16:45 01/28/21 17:23 01/28/21 17:25 Temperature 98.2 F Pulse Rate 46 L 49 L 51 L Respiratory Rate 18 26 H 21 Blood Pressure 134/65 128/58 L Pulse Oximetry 96 90 L 97 01/28/21 17:37 01/28/21 17:43 01/28/21 18:00 Temperature Pulse Rate 52 L 55 L 52 L Respiratory Rate 27 H 24 Blood Pressure 118/60 Pulse Oximetry 97 96 01/28/21 18:01 01/28/21 18:30 01/28/21 19:00 Temperature Pulse Rate 51 L 49 L 48 L Respiratory Rate 26 H 25 H 20 Blood Pressure 123/58 L 129/60 Pulse Oximetry 97 95 97 <Michael Jefferson MD - Last Filed: 01/29/21 06:44> Course Course Narrative: No new issues during course of stay 8:00 p.m.. Sign-out from dr cooper, patient has been accepted by Hospice providing discussion with Urology 1st, Dr. Lombardi Orders Ordered: Acetaminophen (Acetaminophen 325 Mg Tablet) 650 mg PO Q6HR PRN PRN Reason: Fever/Mild Pain (1-3) Al Hydrox/Mg Hydrox/Simethicone (Mag Hydrox/Alum/Simeth 30 Ml Udc) 30 ml PO Q6HR PRN PRN Reason: Dyspepsia Aspirin (Aspirin Ec 81 Mg Tablet) 81 mg PO DAILY [facility] Last Admin: 01/29/21 08:30 Dose: 81 mg Documented by: YOLANDA Atorvastatin Calcium (Atorvastatin 20 Mg Tablet) 20 mg PO DAILY [facility] Last Admin: 01/29/21 08:32 Dose: 20 mg Documented by: YOLANDA Buspirone HCl (Buspirone 5 Mg Tablet) 7.5 mg PO BID [facility] Last Admin: 01/29/21 08:30 Dose: 7.5 mg Documented by: Admin: 01/28/21 23:01 Dose: 7.5 mg Documented by: CTRTANISHA Calcium Carbonate (Calcium Carbonate 500 Mg Tab) 1,000 mg PO Q4HR PRN PRN Reason: Dyspepsia Desmopressin Acetate (Desmopressin 0.2 Mg Tablet) 0.6 mg PO BID [facility] Last Admin: 01/29/21 09:28 Dose: 0.6 mg Documented by: Admin: 01/28/21 23:22 Dose: Not Given Documented by: CTRTANISHA Ceftriaxone Sodium 1,000 mg/ (Sodium Chloride) 100 mls @ 200 mls/hr IV Q24H [facility] Doxycycline Hyclate 100 mg/ (Sodium Chloride) 100 mls @ 100 mls/hr IV Q12H [facility] Last Infusion: 01/29/21 10:40 Dose: 0 mls/hr Documented by: Admin: 01/29/21 09:28 Dose: 100 mls/hr Documented by: YOLANDA Lactated Ringer's (Lactated Ringers) 1,000 mls @ 60 mls/hr IV CONT [facility] Last Infusion: 01/29/21 10:40 Dose: 0 mls/hr Documented by: Admin: 01/29/21 00:02 Dose: 100 mls/hr Documented by: MELO Levothyroxine Sodium (Levothyroxine 75 Mcg Tablet) 75 mcg PO DAILY [facility] Last Admin: 01/29/21 08:30 Dose: 75 mcg Documented by: YOLANDA Magnesium Hydroxide (Magnesium Hydroxide 30 Ml Udc) 30 ml PO DAILY PRN PRN Reason: Constipation Naloxone HCl (Naloxone 0.4 Mg/Ml Vial) 0.2 mg IV Q2MIN PRN PRN Reason: Opiate Reversal Ondansetron HCl (Ondansetron 4 Mg/2 Ml Inj) 4 mg IV Q8HR PRN PRN Reason: Nausea And Vomiting Prednisone (Prednisone 20 Mg Tablet) 40 mg PO DAILY [facility] Stop: 02/03/21 08:59 Last Admin: 01/29/21 08:30 Dose: 40 mg Documented by: YOLANDA Sennosides (Sennosides 8.6 Mg Tablet) 17.2 mg PO BEDTIME [facility] Last Admin: 01/28/21 21:48 Dose: Not Given Documented by: MELO Warfarin Sodium (Warfarin 5 Mg Tablet) 2.5 mg PO TuTh@1700 [facility] Warfarin Sodium (Warfarin 5 Mg Tablet) 3.75 mg PO SuMoWeFrSa@1700 [facility] Discontinued Medications Heparin Sodium (Porcine) (Heparin 5,000 Unit/Ml Vial) 5,000 unit SUBCUT BID [facility] Ceftriaxone Sodium 2,000 mg/ (Sodium Chloride) 100 mls @ 200 mls/hr IV NOW ONE Stop: 01/28/21 17:59 Last Infusion: 01/28/21 18:49 Dose: 0 mls/hr Documented by: Admin: 01/28/21 18:07 Dose: 200 mls/hr Documented by: HETAL Sodium Chloride (Normal Saline 0.9%) 1,000 mls @ 1,000 mls/hr IV BOLUS ONE Stop: 01/28/21 19:30 Last Infusion: 01/28/21 20:09 Dose: 0 mls/hr Documented by: Admin: 01/28/21 18:51 Dose: 1,000 mls/hr Documented by: HETAL Vancomycin HCl/Dextrose (Vancomycin) 1,500 mg in 300 mls @ 200 mls/hr IV NOW ONE Stop: 01/28/21 21:32 Last Infusion: 01/29/21 07:35 Dose: 0 mls/hr Documented by: Infusion: 01/28/21 21:03 Dose: 200 mls/hr Documented by: Admin: 01/28/21 20:13 Dose: 200 mls/hr Documented by: HETAL Sodium Chloride (Normal Saline 0.9%) 1,000 mls @ 150 mls/hr IV CONT [facility] Last Admin: 01/28/21 21:07 Dose: Not Given Documented by: HETAL Lactated Ringer's (Lactated Ringers) 1,000 mls @ 1,000 mls/hr IV BOLUS ONE Stop: 01/28/21 23:48 Last Infusion: 01/29/21 00:03 Dose: 0 mls/hr Documented by: Admin: 01/28/21 23:01 Dose: 1,000 mls/hr Documented by: MELO Tamsulosin HCl (Tamsulosin 0.4 Mg Capsule) 0.4 mg PO NOW ONE Stop: 01/28/21 19:08 Last Admin: 01/28/21 19:17 Dose: 0.4 mg Documented by: HETAL Consultations Consultation #3: Spoke with Dr. Lombardi, Urology, will follow. Findings on CT and laboratory studies likely not needing immediate urological services. Can be followed up on outpatient basis. Recommend Eldridge catheter for urinary output. Time: 20:42 Additional Consultation(s): Spoke with nurse practitioner Carito, updated that Dr. Lombardi will follow. Vital Signs Vital signs: Vital Signs - 8 hr 01/28/21 16:45 01/28/21 17:23 01/28/21 17:25 Temperature 98.2 F Pulse Rate 46 L 49 L 51 L Respiratory Rate 18 26 H 21 Blood Pressure 134/65 128/58 L Pulse Oximetry 96 90 L 97 01/28/21 17:37 01/28/21 17:43 01/28/21 18:00 Temperature Pulse Rate 52 L 55 L 52 L Respiratory Rate 27 H 24 Blood Pressure 118/60 Pulse Oximetry 97 96 01/28/21 18:01 01/28/21 18:30 01/28/21 19:00 Temperature Pulse Rate 51 L 49 L 48 L Respiratory Rate 26 H 25 H 20 Blood Pressure 123/58 L 129/60 Pulse Oximetry 97 95 97 MDM - Neuro Symptoms/Deficit <Daisy C Lorraine, - Last Filed: 01/29/21 14:41> Medical Records Medical records narrative: Patient's medical [facility] were obtained and he had UPJ stone with a bump in his creatinine to 1.4 as maximum in September. Patient had lithotripsy. Patient tested positive for Enterococcus and was started on IV antibiotics including daptomycin and was ultimately switched orals. After this is creatinine improved and was 0.92 in July of 2020 and had a right ureteral stent at that time. Lab Data Result diagrams: 01/29/21 07:05 01/29/21 07:05 Labs: Lab Results 01/28/21 01/28/21 01/28/21 Range/Units 07:50 17:12 17:12 WBC 14.6 H (4.5-11.0) X10^3/uL RBC 4.25 L (4.5-5.9) X10^6/uL Hgb 11.6 L (13.5-17.5) g/dL Hct 36.5 L (41-53) % MCV 85.9 (80-100) fL MCH 27.2 (26-34) PG MCHC 31.6 (30-36) % RDW 18.9 H (11.6-14.8) % Plt Count 196 (150-400) X10^3/uL Neut % (Auto) 76.4 H (50-75) % Lymph % (Auto) 13.6 L (25-40) % [place] % (Auto) 7.4 (3-14) % Eos % (Auto) 2.0 (2-4) % Baso % (Auto) 0.6 (0-2) % Neut # (Auto) 80533 H (4630-1710) /uL Lymph # (Auto) 2000 (0499-2379) /uL [place] # (Auto) 1100 H (0-900) /uL Eos # (Auto) 300 (0-450) /uL Baso # (Auto) 100 (0-100) /uL PT (10.1-12.7) SECONDS INR (0.9-1.3) Sodium 139 (137-145) mmol/L Potassium 4.8 (3.4-5.1) mmol/L Chloride 104 (98-107) mmol/L Carbon Dioxide 31 (22-32) mmol/L BUN 48 H (9-20) mg/dL Creatinine 2.17 H (0.66-1.25) mg/dL Estimated GFR 29.7 L (>60) mL/min BUN/Creatinine Ratio 22.1 H (6-22) Glucose 101 (80-110) mg/dL Lactate (0.7-2.1) mmol/L Calcium 9.5 (8.4-10.2) mg/dL Magnesium (1.6-2.3) mg/dL Total Bilirubin 0.8 (0.2-1.3) mg/dL AST 28 (17-59) IU/L ALT 20 (<50) IU/L Alkaline Phosphatase 88 (38-126) U/L Total Creatine Kinase 114 (55-170) U/L CK-MB (CK-2) 0.61 (<2.37) ng/mL CK-MB (CK-2) Rel Index 0.5 L (1.5-5.0) % Troponin I 0.019 (0.01-0.034) ng/mL C-Reactive Protein (<1.0) mg/dL NT-Pro-B Natriuret Pep (<450) pg/mL Total Protein 7.1 (6.3-8.2) g/dL Albumin 3.6 (3.5-5.0) g/dL Globulin 3.5 (1.7-4.1) g/dL Albumin/Globulin Ratio 1.0 (1.0-2.8) Lipase 36 (23-300) U/L Procalcitonin (<0.5) ng/mL Urine RBC (0-5/HPF) Urine WBC (0-5/HPF) Ur Squamous Epith Cells (0-5/HPF) Urine Bacteria (None) Ur Culture Indicated? Chlamy pneumoniae PCR Not detected (Not Detect) Adenovirus (PCR) Not detected (Not Detect) B. pertussis DNA (PCR) Not detected (Not Detecte) B.parapertussis DNA PCR Not detected (Not Detecte) Coronavirus OC43 (PCR) Not detected (Not Detect) Coronavirus HKU1 (PCR) Not detected (Not Detect) Coronavirus 229E (PCR) Not detected (Not Detect) SARS-CoV-2 (PCR) Not detected (Not Detecte) Coronavirus NL63 (PCR) Not detected (Not Detect) Human Metapneumovir PCR Not detected (Not Detect) Influenza Type A (PCR) Not detected (Not Detect) Influenza Type B (PCR) Not detected (Not Detect) M. pneumoniae (PCR) Not detected (Not Detect) Parainfluenza 1 (PCR) Not detected (Not Detect) Parainfluenza 2 (PCR) Not detected (Not Detect) Parainfluenza 3 (PCR) Not detected (Not Detect) Parainfluenza 4 (PCR) Not detected (Not Detect) RSV (PCR) Not detected (Not Detect) Entero/Rhino (PCR) Not detected (Not Detect) 01/28/21 01/28/21 01/28/21 Range/Units 17:12 17:12 17:12 WBC (4.5-11.0) X10^3/uL RBC (4.5-5.9) X10^6/uL Hgb (13.5-17.5) g/dL Hct (41-53) % MCV (80-100) fL MCH (26-34) PG MCHC (30-36) % RDW (11.6-14.8) % Plt Count (150-400) X10^3/uL Neut % (Auto) (50-75) % Lymph % (Auto) (25-40) % [place] % (Auto) (3-14) % Eos % (Auto) (2-4) % Baso % (Auto) (0-2) % Neut # (Auto) (5704-3355) /uL Lymph # (Auto) (7032-1134) /uL [place] # (Auto) (0-900) /uL Eos # (Auto) (0-450) /uL Baso # (Auto) (0-100) /uL PT 32.1 H (10.1-12.7) SECONDS INR 2.8 H (0.9-1.3) Sodium (137-145) mmol/L Potassium (3.4-5.1) mmol/L Chloride (98-107) mmol/L Carbon Dioxide (22-32) mmol/L BUN (9-20) mg/dL Creatinine (0.66-1.25) mg/dL Estimated GFR (>60) mL/min BUN/Creatinine Ratio (6-22) Glucose (80-110) mg/dL Lactate (0.7-2.1) mmol/L Calcium (8.4-10.2) mg/dL Magnesium 2.7 H (1.6-2.3) mg/dL Total Bilirubin (0.2-1.3) mg/dL AST (17-59) IU/L ALT (<50) IU/L Alkaline Phosphatase (38-126) U/L Total Creatine Kinase (55-170) U/L CK-MB (CK-2) (<2.37) ng/mL CK-MB (CK-2) Rel Index (1.5-5.0) % Troponin I (0.01-0.034) ng/mL C-Reactive Protein (<1.0) mg/dL NT-Pro-B Natriuret Pep 2750 H (<450) pg/mL Total Protein (6.3-8.2) g/dL Albumin (3.5-5.0) g/dL Globulin (1.7-4.1) g/dL Albumin/Globulin Ratio (1.0-2.8) Lipase (23-300) U/L Procalcitonin (<0.5) ng/mL Urine RBC (0-5/HPF) Urine WBC (0-5/HPF) Ur Squamous Epith Cells (0-5/HPF) Urine Bacteria (None) Ur Culture Indicated? Chlamy pneumoniae PCR (Not Detect) Adenovirus (PCR) (Not Detect) B. pertussis DNA (PCR) (Not Detecte) B.parapertussis DNA PCR (Not Detecte) Coronavirus OC43 (PCR) (Not Detect) Coronavirus HKU1 (PCR) (Not Detect) Coronavirus 229E (PCR) (Not Detect) SARS-CoV-2 (PCR) (Not Detecte) Coronavirus NL63 (PCR) (Not Detect) Human Metapneumovir PCR (Not Detect) Influenza Type A (PCR) (Not Detect) Influenza Type B (PCR) (Not Detect) M. pneumoniae (PCR) (Not Detect) Parainfluenza 1 (PCR) (Not Detect) Parainfluenza 2 (PCR) (Not Detect) Parainfluenza 3 (PCR) (Not Detect) Parainfluenza 4 (PCR) (Not Detect) RSV (PCR) (Not Detect) Entero/Rhino (PCR) (Not Detect) 01/28/21 01/28/21 01/28/21 Range/Units 17:39 17:39 19:08 WBC (4.5-11.0) X10^3/uL RBC (4.5-5.9) X10^6/uL Hgb (13.5-17.5) g/dL Hct (41-53) % MCV (80-100) fL MCH (26-34) PG MCHC (30-36) % RDW (11.6-14.8) % Plt Count (150-400) X10^3/uL Neut % (Auto) (50-75) % Lymph % (Auto) (25-40) % [place] % (Auto) (3-14) % Eos % (Auto) (2-4) % Baso % (Auto) (0-2) % Neut # (Auto) (9334-9101) /uL Lymph # (Auto) (5433-3536) /uL [place] # (Auto) (0-900) /uL Eos # (Auto) (0-450) /uL Baso # (Auto) (0-100) /uL PT (10.1-12.7) SECONDS INR (0.9-1.3) Sodium (137-145) mmol/L Potassium (3.4-5.1) mmol/L Chloride (98-107) mmol/L Carbon Dioxide (22-32) mmol/L BUN (9-20) mg/dL Creatinine (0.66-1.25) mg/dL Estimated GFR (>60) mL/min BUN/Creatinine Ratio (6-22) Glucose (80-110) mg/dL Lactate 1.2 (0.7-2.1) mmol/L Calcium (8.4-10.2) mg/dL Magnesium (1.6-2.3) mg/dL Total Bilirubin (0.2-1.3) mg/dL AST (17-59) IU/L ALT (<50) IU/L Alkaline Phosphatase (38-126) U/L Total Creatine Kinase (55-170) U/L CK-MB (CK-2) (<2.37) ng/mL CK-MB (CK-2) Rel Index (1.5-5.0) % Troponin I (0.01-0.034) ng/mL C-Reactive Protein (<1.0) mg/dL NT-Pro-B Natriuret Pep (<450) pg/mL Total Protein (6.3-8.2) g/dL Albumin (3.5-5.0) g/dL Globulin (1.7-4.1) g/dL Albumin/Globulin Ratio (1.0-2.8) Lipase (23-300) U/L Procalcitonin (<0.5) ng/mL Urine RBC 1-5/hpf (0-5/HPF) Urine WBC 5-10/hpf H (0-5/HPF) Ur Squamous Epith Cells 0-1 /hpf (0-5/HPF) Urine Bacteria Occasional (0-1) (None) Ur Culture Indicated? Specimen cultured Chlamy pneumoniae PCR (Not Detect) Adenovirus (PCR) (Not Detect) B. pertussis DNA (PCR) (Not Detecte) B.parapertussis DNA PCR (Not Detecte) Coronavirus OC43 (PCR) (Not Detect) Coronavirus HKU1 (PCR) (Not Detect) Coronavirus 229E (PCR) (Not Detect) SARS-CoV-2 (PCR) Negative (Not Detecte) Coronavirus NL63 (PCR) (Not Detect) Human Metapneumovir PCR (Not Detect) Influenza Type A (PCR) (Not Detect) Influenza Type B (PCR) (Not Detect) M. pneumoniae (PCR) (Not Detect) Parainfluenza 1 (PCR) (Not Detect) Parainfluenza 2 (PCR) (Not Detect) Parainfluenza 3 (PCR) (Not Detect) Parainfluenza 4 (PCR) (Not Detect) RSV (PCR) (Not Detect) Entero/Rhino (PCR) (Not Detect) 01/28/21 01/28/21 01/28/21 Range/Units 19:08 19: 20:16 WBC (4.5-11.0) X10^3/uL RBC (4.5-5.9) X10^6/uL Hgb (13.5-17.5) g/dL Hct (41-53) % MCV (80-100) fL MCH (26-34) PG MCHC (30-36) % RDW (11.6-14.8) % Plt Count (150-400) X10^3/uL Neut % (Auto) (50-75) % Lymph % (Auto) (25-40) % [place] % (Auto) (3-14) % Eos % (Auto) (2-4) % Baso % (Auto) (0-2) % Neut # (Auto) (6783-3655) /uL Lymph # (Auto) (5031-5100) /uL [place] # (Auto) (0-900) /uL Eos # (Auto) (0-450) /uL Baso # (Auto) (0-100) /uL PT (10.1-12.7) SECONDS INR (0.9-1.3) Sodium (137-145) mmol/L Potassium (3.4-5.1) mmol/L Chloride (98-107) mmol/L Carbon Dioxide (22-32) mmol/L BUN (9-20) mg/dL Creatinine (0.66-1.25) mg/dL Estimated GFR (>60) mL/min BUN/Creatinine Ratio (6-22) Glucose (80-110) mg/dL Lactate (0.7-2.1) mmol/L Calcium (8.4-10.2) mg/dL Magnesium (1.6-2.3) mg/dL Total Bilirubin (0.2-1.3) mg/dL AST (17-59) IU/L ALT (<50) IU/L Alkaline Phosphatase (38-126) U/L Total Creatine Kinase (55-170) U/L CK-MB (CK-2) (<2.37) ng/mL CK-MB (CK-2) Rel Index (1.5-5.0) % Troponin I (0.01-0.034) ng/mL C-Reactive Protein 16.7 H (<1.0) mg/dL NT-Pro-B Natriuret Pep (<450) pg/mL Total Protein (6.3-8.2) g/dL Albumin (3.5-5.0) g/dL Globulin (1.7-4.1) g/dL Albumin/Globulin Ratio (1.0-2.8) Lipase (23-300) U/L Procalcitonin 0.56 H (<0.5) ng/mL Urine RBC (0-5/HPF) Urine WBC (0-5/HPF) Ur Squamous Epith Cells (0-5/HPF) Urine Bacteria (None) Ur Culture Indicated? Chlamy pneumoniae PCR (Not Detect) Adenovirus (PCR) (Not Detect) B. pertussis DNA (PCR) (Not Detecte) B.parapertussis DNA PCR (Not Detecte) Coronavirus OC43 (PCR) (Not Detect) Coronavirus HKU1 (PCR) (Not Detect) Coronavirus 229E (PCR) (Not Detect) SARS-CoV-2 (PCR) Negative (Not Detecte) Coronavirus NL63 (PCR) (Not Detect) Human Metapneumovir PCR (Not Detect) Influenza Type A (PCR) (Not Detect) Influenza Type B (PCR) (Not Detect) M. pneumoniae (PCR) (Not Detect) Parainfluenza 1 (PCR) (Not Detect) Parainfluenza 2 (PCR) (Not Detect) Parainfluenza 3 (PCR) (Not Detect) Parainfluenza 4 (PCR) (Not Detect) RSV (PCR) (Not Detect) Entero/Rhino (PCR) (Not Detect) Point of Care Testing Glucose POC 114 Urine Dip Bedside Urine Glucose Negative Bedside Urine Bilirubin - Negative Bedside Urine Ketone - Negative Urine Specific [place] 1.020 Bedside Urine Occult Blood + Bedside Urine pH 6.0 Bedside Urine Protein +/- 15 Bedside Urine Nitrite - Negative Bedside Urine Leukocytes - Negative Esterase Imaging Data CT scan - abdomen/pelvis: Radiologist's Impression: [place] [address] CT Scan Report Signed Patient: William Bridges MR#: [id number] : 1945 Acct:[id number] Age/Sex: 75 / M Date of Service: 01/28/21 Loc: ED Accession Number: [id number] ?? Procedure: CT kidney ureter bladder (KUB) Ordering Provider: Daisy Cooper D.O. PROCEDURE:? CT KIDNEY URETER BLADDER (KUB) ? INDICATIONS:? jass, + urine.? no known ckd. ? TECHNIQUE:? Axial sections were acquired from the lung bases to the pubic symphysis.? Coronal and sagittal reformats were performed.? For radiation dose reduction, the following was used: ?automated exposure control, adjustment of mA and/or kV according to patient size.? ? COMPARISON:? [facility], CT, KIDNEY/ URETER/BLADDER, 12/08/2006, 7:56. ? FINDINGS:? Image quality:? Excellent.? ? Lung bases:? Moderate patchy airspace opacity within the left lung base posteriorly.? Trace left pleural effusion. Heart:? Calcification of the coronary vasculature. ? URINARY:? Mild perinephric fat stranding bilaterally.? Bilateral renal calculi are present, largest of which is in the inferior pole right kidney measuring 18 mm diameter, increased from the prior examination.? Mild bilateral hydronephrosis.? Proximal bilateral ureteral dilatation is present.? There is a left ureteropelvic junction calculus measuring 7 mm.? Urinary bladder grossly unremarkable.? ? ABDOMEN: Liver:? Unremarkable.? ? Gallbladder:? Surgically absent? ? Biliary ducts:? Unremarkable.? ? Pancreas:? Unremarkable.? ? Spleen:? Unremarkable.? ? Adrenal Glands:? Unremarkable.? ? ? Stomach and Bowel:? Stomach, small bowel loops, and colon are unremarkable.? Appendix not seen.? No evidence of appendicitis. Peritoneum:? No abnormal intraperitoneal fluid.? No free air.? ? Ventral Wall: ? No hernia.? Abdominal Nodes:? No enlarged retroperitoneal or mesenteric lymph nodes.? Vessels:? Aorta and inferior vena cava are normal in size.? ? PELVIS: Pelvic Organs:? Unremarkable.? ? Pelvic Nodes: Unremarkable. Miscellaneous: No inguinal hernias are seen. ? ? ? Bones:? Diffuse sclerosis with possible trabecular thickening within the right iliac wing, right ischemia move, and bilateral femoral heads and necks, as before. ? IMPRESSION:? ? 1. Bilateral renal calculi associated with mild bilateral hydronephrosis. 2. Left ureteropelvic junction calculus. 3. Appendix not seen.? No evidence of appendicitis. 4. Left basilar pneumonia with trace parapneumonic effusion. 5. Coronary artery disease. 6. No change in sclerosis within the pelvis and proximal femoral, in a configuration suggestive of Paget's disease.? Bony metastatic disease could produce a similar appearance in the appropriate clinical setting.? Dictated by: Bran García M.D. on 01/28/2021 at 18:54 ? ? Approved by: Bran García M.D. on 01/28/2021 at 18:59?? ECG Data Attestation: I personally reviewed and interpreted this ECG as follows: Prior ECG tracings: available for review Interpretation: Sinus bradycardia with sinus arrhythmia. First-degree AV block rate of 48 WV of 228, QRS of 92 QTC 373. Patient has artifact change in V3 V4 but no clear acute changes noted. Patient has prior EKG from 12/10/2018 which appears similar MDM Narrative Medical decision making narrative: This is a 75-year-old male who comes emergency department for being ?unresponsive? but patient awakened for nursing staff. He does have a significant past medical history. He was noted to have pneumonia on chest x-ray. He is afebrile with bradycardia which his states is not atypical with a heart rate of 40s to 50s. Patient was noted to have a significant bump in his creatinine. We obtained records and his height is prior that I can find from [employer] records was 1.46. He does have leukocyte esterase and has appears to be a stone in the UPJ junction. In July and September patient was found to have Enterococcus UTI, he was on IV antibiotics and ultimately transition to oral amoxicillin and had lithotripsy as well as ureteral stent placed. I spoke with our hospitalist who is happy to accept if we have urology coverage. Call out to Dr. Lombardi from urology to confirm urology availability here. Patient was covered with Rocephin initially and vancomycin. Signed out to Dr. Jefferson while awaiting callback from urology. Plan for admission here unless no urology available and then transfer to other facility. <Michael Jefferson MD - Last Filed: 01/29/21 06:44> Lab Data Labs: Lab Results 01/28/21 01/28/21 01/28/21 Range/Units 07:50 17:12 17:12 WBC 14.6 H (4.5-11.0) X10^3/uL RBC 4.25 L (4.5-5.9) X10^6/uL Hgb 11.6 L (13.5-17.5) g/dL Hct 36.5 L (41-53) % MCV 85.9 (80-100) fL MCH 27.2 (26-34) PG MCHC 31.6 (30-36) % RDW 18.9 H (11.6-14.8) % Plt Count 196 (150-400) X10^3/uL Neut % (Auto) 76.4 H (50-75) % Lymph % (Auto) 13.6 L (25-40) % [place] % (Auto) 7.4 (3-14) % Eos % (Auto) 2.0 (2-4) % Baso % (Auto) 0.6 (0-2) % Neut # (Auto) 58403 H (2118-1926) /uL Lymph # (Auto) 2000 (2660-6355) /uL [place] # (Auto) 1100 H (0-900) /uL Eos # (Auto) 300 (0-450) /uL Baso # (Auto) 100 (0-100) /uL PT (10.1-12.7) SECONDS INR (0.9-1.3) Sodium 139 (137-145) mmol/L Potassium 4.8 (3.4-5.1) mmol/L Chloride 104 (98-107) mmol/L Carbon Dioxide 31 (22-32) mmol/L BUN 48 H (9-20) mg/dL Creatinine 2.17 H (0.66-1.25) mg/dL Estimated GFR 29.7 L (>60) mL/min BUN/Creatinine Ratio 22.1 H (6-22) Glucose 101 (80-110) mg/dL Lactate (0.7-2.1) mmol/L Calcium 9.5 (8.4-10.2) mg/dL Magnesium (1.6-2.3) mg/dL Total Bilirubin 0.8 (0.2-1.3) mg/dL AST 28 (17-59) IU/L ALT 20 (<50) IU/L Alkaline Phosphatase 88 (38-126) U/L Total Creatine Kinase 114 (55-170) U/L CK-MB (CK-2) 0.61 (<2.37) ng/mL CK-MB (CK-2) Rel Index 0.5 L (1.5-5.0) % Troponin I 0.019 (0.01-0.034) ng/mL C-Reactive Protein (<1.0) mg/dL NT-Pro-B Natriuret Pep (<450) pg/mL Total Protein 7.1 (6.3-8.2) g/dL Albumin 3.6 (3.5-5.0) g/dL Globulin 3.5 (1.7-4.1) g/dL Albumin/Globulin Ratio 1.0 (1.0-2.8) Lipase 36 (23-300) U/L Procalcitonin (<0.5) ng/mL Urine RBC (0-5/HPF) Urine WBC (0-5/HPF) Ur Squamous Epith Cells (0-5/HPF) Urine Bacteria (None) Ur Culture Indicated? Chlamy pneumoniae PCR Not detected (Not Detect) Adenovirus (PCR) Not detected (Not Detect) B. pertussis DNA (PCR) Not detected (Not Detecte) B.parapertussis DNA PCR Not detected (Not Detecte) Coronavirus OC43 (PCR) Not detected (Not Detect) Coronavirus HKU1 (PCR) Not detected (Not Detect) Coronavirus 229E (PCR) Not detected (Not Detect) SARS-CoV-2 (PCR) Not detected (Not Detecte) Coronavirus NL63 (PCR) Not detected (Not Detect) Human Metapneumovir PCR Not detected (Not Detect) Influenza Type A (PCR) Not detected (Not Detect) Influenza Type B (PCR) Not detected (Not Detect) M. pneumoniae (PCR) Not detected (Not Detect) Parainfluenza 1 (PCR) Not detected (Not Detect) Parainfluenza 2 (PCR) Not detected (Not Detect) Parainfluenza 3 (PCR) Not detected (Not Detect) Parainfluenza 4 (PCR) Not detected (Not Detect) RSV (PCR) Not detected (Not Detect) Entero/Rhino (PCR) Not detected (Not Detect) 01/28/21 01/28/21 01/28/21 Range/Units 17:12 17:12 17:12 WBC (4.5-11.0) X10^3/uL RBC (4.5-5.9) X10^6/uL Hgb (13.5-17.5) g/dL Hct (41-53) % MCV (80-100) fL MCH (26-34) PG MCHC (30-36) % RDW (11.6-14.8) % Plt Count (150-400) X10^3/uL Neut % (Auto) (50-75) % Lymph % (Auto) (25-40) % [place] % (Auto) (3-14) % Eos % (Auto) (2-4) % Baso % (Auto) (0-2) % Neut # (Auto) (3947-6240) /uL Lymph # (Auto) (1840-4094) /uL [place] # (Auto) (0-900) /uL Eos # (Auto) (0-450) /uL Baso # (Auto) (0-100) /uL PT 32.1 H (10.1-12.7) SECONDS INR 2.8 H (0.9-1.3) Sodium (137-145) mmol/L Potassium (3.4-5.1) mmol/L Chloride (98-107) mmol/L Carbon Dioxide (22-32) mmol/L BUN (9-20) mg/dL Creatinine (0.66-1.25) mg/dL Estimated GFR (>60) mL/min BUN/Creatinine Ratio (6-22) Glucose (80-110) mg/dL Lactate (0.7-2.1) mmol/L Calcium (8.4-10.2) mg/dL Magnesium 2.7 H (1.6-2.3) mg/dL Total Bilirubin (0.2-1.3) mg/dL AST (17-59) IU/L ALT (<50) IU/L Alkaline Phosphatase (38-126) U/L Total Creatine Kinase (55-170) U/L CK-MB (CK-2) (<2.37) ng/mL CK-MB (CK-2) Rel Index (1.5-5.0) % Troponin I (0.01-0.034) ng/mL C-Reactive Protein (<1.0) mg/dL NT-Pro-B Natriuret Pep 2750 H (<450) pg/mL Total Protein (6.3-8.2) g/dL Albumin (3.5-5.0) g/dL Globulin (1.7-4.1) g/dL Albumin/Globulin Ratio (1.0-2.8) Lipase (23-300) U/L Procalcitonin (<0.5) ng/mL Urine RBC (0-5/HPF) Urine WBC (0-5/HPF) Ur Squamous Epith Cells (0-5/HPF) Urine Bacteria (None) Ur Culture Indicated? Chlamy pneumoniae PCR (Not Detect) Adenovirus (PCR) (Not Detect) B. pertussis DNA (PCR) (Not Detecte) B.parapertussis DNA PCR (Not Detecte) Coronavirus OC43 (PCR) (Not Detect) Coronavirus HKU1 (PCR) (Not Detect) Coronavirus 229E (PCR) (Not Detect) SARS-CoV-2 (PCR) (Not Detecte) Coronavirus NL63 (PCR) (Not Detect) Human Metapneumovir PCR (Not Detect) Influenza Type A (PCR) (Not Detect) Influenza Type B (PCR) (Not Detect) M. pneumoniae (PCR) (Not Detect) Parainfluenza 1 (PCR) (Not Detect) Parainfluenza 2 (PCR) (Not Detect) Parainfluenza 3 (PCR) (Not Detect) Parainfluenza 4 (PCR) (Not Detect) RSV (PCR) (Not Detect) Entero/Rhino (PCR) (Not Detect) 01/28/21 01/28/21 01/28/21 Range/Units 17:39 17:39 19:08 WBC (4.5-11.0) X10^3/uL RBC (4.5-5.9) X10^6/uL Hgb (13.5-17.5) g/dL Hct (41-53) % MCV (80-100) fL MCH (26-34) PG MCHC (30-36) % RDW (11.6-14.8) % Plt Count (150-400) X10^3/uL Neut % (Auto) (50-75) % Lymph % (Auto) (25-40) % [place] % (Auto) (3-14) % Eos % (Auto) (2-4) % Baso % (Auto) (0-2) % Neut # (Auto) (9041-6670) /uL Lymph # (Auto) (4733-5129) /uL [place] # (Auto) (0-900) /uL Eos # (Auto) (0-450) /uL Baso # (Auto) (0-100) /uL PT (10.1-12.7) SECONDS INR (0.9-1.3) Sodium (137-145) mmol/L Potassium (3.4-5.1) mmol/L Chloride (98-107) mmol/L Carbon Dioxide (22-32) mmol/L BUN (9-20) mg/dL Creatinine (0.66-1.25) mg/dL Estimated GFR (>60) mL/min BUN/Creatinine Ratio (6-22) Glucose (80-110) mg/dL Lactate 1.2 (0.7-2.1) mmol/L Calcium (8.4-10.2) mg/dL Magnesium (1.6-2.3) mg/dL Total Bilirubin (0.2-1.3) mg/dL AST (17-59) IU/L ALT (<50) IU/L Alkaline Phosphatase (38-126) U/L Total Creatine Kinase (55-170) U/L CK-MB (CK-2) (<2.37) ng/mL CK-MB (CK-2) Rel Index (1.5-5.0) % Troponin I (0.01-0.034) ng/mL C-Reactive Protein (<1.0) mg/dL NT-Pro-B Natriuret Pep (<450) pg/mL Total Protein (6.3-8.2) g/dL Albumin (3.5-5.0) g/dL Globulin (1.7-4.1) g/dL Albumin/Globulin Ratio (1.0-2.8) Lipase (23-300) U/L Procalcitonin (<0.5) ng/mL Urine RBC 1-5/hpf (0-5/HPF) Urine WBC 5-10/hpf H (0-5/HPF) Ur Squamous Epith Cells 0-1 /hpf (0-5/HPF) Urine Bacteria Occasional (0-1) (None) Ur Culture Indicated? Specimen cultured Chlamy pneumoniae PCR (Not Detect) Adenovirus (PCR) (Not Detect) B. pertussis DNA (PCR) (Not Detecte) B.parapertussis DNA PCR (Not Detecte) Coronavirus OC43 (PCR) (Not Detect) Coronavirus HKU1 (PCR) (Not Detect) Coronavirus 229E (PCR) (Not Detect) SARS-CoV-2 (PCR) Negative (Not Detecte) Coronavirus NL63 (PCR) (Not Detect) Human Metapneumovir PCR (Not Detect) Influenza Type A (PCR) (Not Detect) Influenza Type B (PCR) (Not Detect) M. pneumoniae (PCR) (Not Detect) Parainfluenza 1 (PCR) (Not Detect) Parainfluenza 2 (PCR) (Not Detect) Parainfluenza 3 (PCR) (Not Detect) Parainfluenza 4 (PCR) (Not Detect) RSV (PCR) (Not Detect) Entero/Rhino (PCR) (Not Detect) 01/28/21 01/28/21 01/28/21 Range/Units 19:08 19:21 20:16 WBC (4.5-11.0) X10^3/uL RBC (4.5-5.9) X10^6/uL Hgb (13.5-17.5) g/dL Hct (41-53) % MCV (80-100) fL MCH (26-34) PG MCHC (30-36) % RDW (11.6-14.8) % Plt Count (150-400) X10^3/uL Neut % (Auto) (50-75) % Lymph % (Auto) (25-40) % [place] % (Auto) (3-14) % Eos % (Auto) (2-4) % Baso % (Auto) (0-2) % Neut # (Auto) (3677-2633) /uL Lymph # (Auto) (6360-8043) /uL [place] # (Auto) (0-900) /uL Eos # (Auto) (0-450) /uL Baso # (Auto) (0-100) /uL PT (10.1-12.7) SECONDS INR (0.9-1.3) Sodium (137-145) mmol/L Potassium (3.4-5.1) mmol/L Chloride (98-107) mmol/L Carbon Dioxide (22-32) mmol/L BUN (9-20) mg/dL Creatinine (0.66-1.25) mg/dL Estimated GFR (>60) mL/min BUN/Creatinine Ratio (6-22) Glucose (80-110) mg/dL Lactate (0.7-2.1) mmol/L Calcium (8.4-10.2) mg/dL Magnesium (1.6-2.3) mg/dL Total Bilirubin (0.2-1.3) mg/dL AST (17-59) IU/L ALT (<50) IU/L Alkaline Phosphatase (38-126) U/L Total Creatine Kinase (55-170) U/L CK-MB (CK-2) (<2.37) ng/mL CK-MB (CK-2) Rel Index (1.5-5.0) % Troponin I (0.01-0.034) ng/mL C-Reactive Protein 16.7 H (<1.0) mg/dL NT-Pro-B Natriuret Pep (<450) pg/mL Total Protein (6.3-8.2) g/dL Albumin (3.5-5.0) g/dL Globulin (1.7-4.1) g/dL Albumin/Globulin Ratio (1.0-2.8) Lipase (23-300) U/L Procalcitonin 0.56 H (<0.5) ng/mL Urine RBC (0-5/HPF) Urine WBC (0-5/HPF) Ur Squamous Epith Cells (0-5/HPF) Urine Bacteria (None) Ur Culture Indicated? Chlamy pneumoniae PCR (Not Detect) Adenovirus (PCR) (Not Detect) B. pertussis DNA (PCR) (Not Detecte) B.parapertussis DNA PCR (Not Detecte) Coronavirus OC43 (PCR) (Not Detect) Coronavirus HKU1 (PCR) (Not Detect) Coronavirus 229E (PCR) (Not Detect) SARS-CoV-2 (PCR) Negative (Not Detecte) Coronavirus NL63 (PCR) (Not Detect) Human Metapneumovir PCR (Not Detect) Influenza Type A (PCR) (Not Detect) Influenza Type B (PCR) (Not Detect) M. pneumoniae (PCR) (Not Detect) Parainfluenza 1 (PCR) (Not Detect) Parainfluenza 2 (PCR) (Not Detect) Parainfluenza 3 (PCR) (Not Detect) Parainfluenza 4 (PCR) (Not Detect) RSV (PCR) (Not Detect) Entero/Rhino (PCR) (Not Detect) Point of Care Testing Glucose POC 114 Urine Dip Bedside Urine Glucose Negative Bedside Urine Bilirubin - Negative Bedside Urine Ketone - Negative Urine Specific [place] 1.020 Bedside Urine Occult Blood + Bedside Urine pH 6.0 Bedside Urine Protein +/- 15 Bedside Urine Nitrite - Negative Bedside Urine Leukocytes - Negative Esterase Discharge Plan Departure Patient Disposition: Admitted As Inpatient Clinical Impression: JASS (acute kidney injury), Acute UTI, Kidney stone Pneumonia Qualifiers: Pneumonia type: due to unspecified organism Laterality: unspecified laterality Lung location: unspecified part of lung Qualified Code(s): J18.9 - Pneumonia, unspecified organism Admit Date/Time: 01/28/21 20:41 Admit Provider: Carito Viramontes
[2021-01-28 17:23] LABS: Add Manual Diff / Slide Review NO; Basophils Absolute Auto 100 /uL (0-100); Basophils Percent Auto 0.6 % (0-2); Eosinophils Absolute Auto 300 /uL (0-450); Hematocrit 36.5 % (41-53); Hemoglobin 11.6 g/dL (13.5-17.5); Lymphocytes Absolute Auto 2000 /uL (1100-4500); Lymphocytes Percent Auto 13.6 % (25-40); Mean Corpuscular HGB Conc 31.6 % (30-36); Mean Corpuscular Hemoglobin 27.2 PG (26-34); Mean Corpuscular Volume 85.9 fL (80-100); Monocytes Absolute Auto 1100 /uL (0-900); Monocytes Percent Auto 7.4 % (3-14); Neutrophils Absolute Auto 11100 /uL (1500-7000); Neutrophils Percent Auto 76.4 % (50-75); Platelet Count 196 X10^3/uL (150-400); Red Blood Cell Count 4.25 X10^6/uL (4.5-5.9); Red Cell Distribution Width 18.9 % (11.6-14.8); White Blood Cell Count 14.6 X10^3/uL (4.5-11.0)
--- NOTE | 2021-01-28 17:42 | PC.NURSE ---
Patient and were running errands and patient fell asleep which was not unexpected by . When she tried to wake him up, she was unable to. Brought patient to ED and was arousable at arrival but weak with brain fog. At time of assessment reports patient is at his baseline given neurological history. reports patient was unarousable to back to baseline in about 20 minutes.
[2021-01-28 17:56] LABS: Alanine Aminotransferase 20 IU/L (<50); Albumin 3.6 g/dL (3.5-5.0); Alkaline Phosphatase 88 U/L (38-126); Aspartate Aminotransferase 28 IU/L (17-59); BUN Creatinine Ratio 22.1 (6-22); Bilirubin Total 0.8 mg/dL (0.2-1.3); Blood Urea Nitrogen 48 mg/dL (9-20); Calcium 9.5 mg/dL (8.4-10.2); Carbon Dioxide 31 mmol/L (22-32); Chloride 104 mmol/L (98-107); Creatine Kinase 114 U/L (55-170); Estimated Glomerular Filt Rate 29.7 mL/min (>60); Globulin 3.5 g/dL (1.7-4.1); Glucose 101 mg/dL (80-110); HEMOLYSIS < 15 (0-50); Lipase 36 U/L (23-300); Potassium 4.8 mmol/L (3.4-5.1); Sodium 139 mmol/L (137-145); Total Protein 7.1 g/dL (6.3-8.2)
[2021-01-28 18:07] LABS: Bacteria Urine Occasional (0-1); Culture Indicated Urine Specimen Cultured; RBC Urine 1-5/HPF (0-5/HPF); Squamous Epithelial Cell Urine 0-1 /HPF (0-5/HPF); WBC Urine 5-10/HPF (0-5/HPF)
[2021-01-28] MEDS: cefTRIAXone 2,000 MG in SODIUM CHLORIDE 0.9% 100 ML 200 ML IV (18:07)
[2021-01-28 18:08] LABS: Troponin I 0.019 ng/mL (0.01-0.034)
[2021-01-28 18:11] LABS: CKMB % Relative Index 0.5 % (1.5-5.0); Creatine Kinase MB 0.61 ng/mL (<2.37)
--- NOTE | 2021-01-28 18:27 | DI.CT.S_ITS ---
PROCEDURE: CT KIDNEY URETER BLADDER (KUB) INDICATIONS: sidney, + urine. no known ckd. TECHNIQUE: Axial sections were acquired from the lung bases to the pubic symphysis. Coronal and sagittal reformats were performed. For radiation dose reduction, the following was used: automated exposure control, adjustment of mA and/or kV according to patient size. COMPARISON: [facility], CT, KIDNEY/ URETER/BLADDER, 12/08/2006, 7:56. FINDINGS: Image quality: Excellent. Lung bases: Moderate patchy airspace opacity within the left lung base posteriorly. Trace left pleural effusion. Heart: Calcification of the coronary vasculature. URINARY: Mild perinephric fat stranding bilaterally. Bilateral renal calculi are present, largest of which is in the inferior pole right kidney measuring 18 mm diameter, increased from the prior examination. Mild bilateral hydronephrosis. Proximal bilateral ureteral dilatation is present. There is a left ureteropelvic junction calculus measuring 7 mm. Urinary bladder grossly unremarkable. ABDOMEN: Liver: Unremarkable. Gallbladder: Surgically absent Biliary ducts: Unremarkable. Pancreas: Unremarkable. Spleen: Unremarkable. Adrenal Glands: Unremarkable. Stomach and Bowel: Stomach, small bowel loops, and colon are unremarkable. Appendix not seen. No evidence of appendicitis. Peritoneum: No abnormal intraperitoneal fluid. No free air. Ventral Wall: No hernia. Abdominal Nodes: No enlarged retroperitoneal or mesenteric lymph nodes. Vessels: Aorta and inferior vena cava are normal in size. PELVIS: Pelvic Organs: Unremarkable. Pelvic Nodes: Unremarkable. Miscellaneous: No inguinal hernias are seen. Bones: Diffuse sclerosis with possible trabecular thickening within the right iliac wing, right ischemia move, and bilateral femoral heads and necks, as before. IMPRESSION: 1. Bilateral renal calculi associated with mild bilateral hydronephrosis. 2. Left ureteropelvic junction calculus. 3. Appendix not seen. No evidence of appendicitis. 4. Left basilar pneumonia with trace parapneumonic effusion. 5. Coronary artery disease. 6. No change in sclerosis within the pelvis and proximal femoral, in a configuration suggestive of Paget's disease. Bony metastatic disease could produce a similar appearance in the appropriate clinical setting. Dictated by: Bran García M.D. on 01/28/2021 at 18:54 Approved by: Bran García M.D. on 01/28/2021 at 18:59
[2021-01-28 18:30] LABS: COVID19 -Nasal RAPID Negative (Negative)
[2021-01-28] MEDS: SODIUM CHLORIDE 0.9% 1,000 ML 1000 ML IV (18:51)
[2021-01-28] MEDS: TAMSULOSIN 0.4 MG CAPSULE PO (19:17)
[2021-01-28 19:31] LABS: INR 2.8 (0.9-1.3); Prothrombin Time 32.1 SECONDS (10.1-12.7)
[2021-01-28 19:38] LABS: Lactate (Lactic Acid) 1.2 mmol/L (0.7-2.1)
[2021-01-28 19:56] LABS: Procalcitonin 0.56 ng/mL (<0.5)
[2021-01-28] MEDS: VANCOMYCIN 1,500 MG/300 ML PIGGYBACK 200 MG IV (20:13)
[2021-01-28 21:23] LABS: COVID19 - ADMIT (NP swab/PCR) Negative (Negative)
[2021-01-28 22:14] LABS: Magnesium 2.7 mg/dL (1.6-2.3)
[2021-01-28 22:24] LABS: NT-proBNP (BNP-Adult 18+) 2750 pg/mL (<450)
[2021-01-28 22:27] LABS: C-Reactive Protein Quant 16.7 mg/dL (<1.0)
[2021-01-28] MEDS: BUSPIRONE 5 MG TABLET 7.5 MG PO (23:01)
[2021-01-28] MEDS: LACTATED RINGERS 1,000 ML 1000 ML IV (23:01)
[2021-01-29] VITALS (11 sets, daily range): BP systolic 126–147; BP diastolic 58–82; PULSE 47–66; RESP 18–20; TEMP 36.3–36.6; O2SAT 91–97
[2021-01-29] MEDS: LACTATED RINGERS 1,000 ML 100 ML IV (00:02)
--- NOTE | 2021-01-29 03:31 | P.HP_ITS ---
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 Nursing staff was able to awaken him to transfer to wheelchair.? Patient typically does use a walker for ambulation but performs all other ADLs without assistance.? He follows with Dr. Ventura Carcamo & Dr. Eastman for his cardiology at [place].? Patient has had a cough for the past week which has been nonproductive, afebrile, not altered?prior to today.? He is back at his normal baseline mentation according to him and his in the room.? Patient denies any chest pain, chest pressure, no syncope, lightheadedness, difficulty swallowing, abd pain, nausea, vomiting.? He had 1 episode of diarrhea 5 days ago.? Patient denies melena, hematuria, h ematemesis, dysuria, urgency or frequency.? He has had some chronic urinary retention in the past not persistently.? He has had lithotripsy before for kidney stones but they were told his kidneys were ?okay.?? He is on warfarin+ asa 81mg, atorvastatin, desmopressin, Lasix, levothyroxine and quetiapine.? Patient has not had any new acute medication changes.? He smokes cigars, occasional alcohol, no illicit.? Upon admit patient's vital stable with a BP 129/60, HR 48, R 19, O2 saturation 95% on room air. Patient has elevated WBC 14.6, neutrophils 11,100, mono 1100, HGB 11.6, HCT 36.5. Noted JASS BUN of 48, creatinine 2.17 previous was 0.80, GFR of 29.7, previous GFR> 60. Urine is being cultured. Initial troponin 0.019. Lipase WNL, procalcitonin 0.56. Head CT negative for any acute intracranial processes. Patient's chest x-ray demonstrated mild bilateral pneumonia. Patient's KUB demonstrated bilateral renal calculi associated with mild bilateral hydronephrosis. Left basilar pneumonia with trace parapneumonic effusion. ?ED consulted Dr. Lombardi, Urology, who advised findings on CT and laboratory studies likely not needing immediate urological services.? Can be followed up on outpatient basis.? Recommend Eldridge catheter for urinary output. Per Dr. Peters ED patient's medical records from [facility] were obtained and he had UPJ stone with a bump in his creatinine to 1.4 as maximum in September.? Patient had lithotripsy.? Patient tested positive for Enterococcus and was started on IV antibiotics including daptomycin and was ultimately switched orals (3months).?After this is creatinine improved and was 0.92 in July of 2020 and had a right ureteral stent at that time.? Patient admitted with mild bilateral pneumonia with left trace parapneumonic effusion, Acute encephalopathy secondary to sepsis with JASS and without shock. 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) Non-insulin dependent type 2 diabetes mellitus Prostate cancer Surgical History (Updated 01/29/21 @ 03:58 by VITA Badillo-MÓNICA) History of heart artery stent History of heart bypass surgery Family & Social History Family History Mother Breast cancer Father Lung cancer Alcoholism in family member Social History: household members spouse Prior Living Arrangements House Safety & Behavioral: Feels Safe in Current Yes Environment Been Physically Hurt or No Threatened By a Person Suicidal Ideation Description None Suicide Plan Description No Plan Tobacco & Substance use: Tobacco type cigars Smoking Status Current every day smoker alcohol intake never alcohol intake frequency holiday/special occasion Substance Use Type does not use Meds Home Medications and Allergies Home Medications Medication Instructions Recorded Confirmed Type aspirin 81 mg tablet,delayed 81 mg PO DAILY 12/02/18 01/28/21 History release atorvastatin 20 mg tablet 20 mg PO DAILY 12/02/18 01/28/21 History buspirone 7.5 mg tablet 7.5 mg PO BID 12/02/18 01/28/21 History cholecalciferol (vitamin D3) 1,000 units PO BID 12/02/18 01/28/21 History desmopressin 0.2 mg tablet 0.6 mg PO BID 12/02/18 01/28/21 History levothyroxine 75 mcg tablet 75 mcg PO DAILY 12/02/18 01/28/21 History warfarin 2.5 mg tablet See Rx Instructions PO DAILY 05/13/20 01/28/21 History Allergies Allergy/AdvReac Type Severity Reaction Status Date / Time lisinopril [LISINOPRIL] Allergy Unknown Verified 01/28/21 16:54 Review of Systems Review of Systems Narrative: All 12 point systems reviewed with the patient and are negative except otherwise documented. Exam Vital Signs (past 8 hours): - 01/28/21 20:00 01/28/21 20:30 01/28/21 20:39 Temperature Pulse Rate 49 L 48 L 51 L Respiratory Rate 21 19 21 Blood Pressure 130/62 Pulse Oximetry 96 95 96 01/28/21 21:01 01/28/21 21:10 01/28/21 23:30 Temperature 97.6 F 97.9 F Pulse Rate 49 L 47 L 52 L Respiratory Rate 24 16 16 Blood Pressure 123/59 L 123/59 L 131/60 Pulse Oximetry 96 97 93 01/28/21 23:46 01/29/21 00:06 Temperature Pulse Rate Respiratory Rate Blood Pressure Pulse Oximetry 97 97 Oxygen Delivery Method Room Air Oxygen Flow Rate 0 Narrative Exam Narrative: General: Patient is a well-developed, well-nourished very drowsy elderly male, in no distress at this time. HEENT: Normocephalic, atraumatic, extraocular muscles intact, oral pharynx is clear and mucous membranes are moist. Neck is supple and symmetric, trachea is midline, no adenopathy, no thyroid enlargement, nontender, no masses palpated. Negative for JVD Chest: Normal AP diameter and contour without kyphoscoliosis, no nasal flaring, retractions, or tachypneic labored breathing. Lungs: Auscultation of all lung elliott are clear without adventitious sounds, wheezes, rhonchi, or rales. Cardio: regular rate and rhythm possible whooshing murmur 1/6 right 2nd intercostal space without rubs, or gallops, no carotid bruit, no cardiac pulsations present. Abdomen: Soft nontender, negative for organomegaly, or masses. Bowel sounds are present in all 4 quadrants without guarding or rebound, no CVA tenderness. Musculoskeletal: Muscle strength and tone are equal within normal limits, no deformity, crepitus, effusions, cyanosis, clubbing or edema present. Full range of motion intact radial and pedal pulses are normal. Skin: Warm dry and intact without rashes, ulcerations or petechiae. Neuro: Alert and orientated x3, strength is +5/5 in all extremities, sensation to touch intact, no gross deficits noted of cranial nerves. Psych: Patient has a well-kept appearance, during initial admit exam and interview the patient frequently falls back asleep begin snoring, but is easily arousable. Objective Labs Result Diagrams: 01/28/21 17:12 01/28/21 17:12 Labs: Laboratory Results - last 24 hr 01/28/21 01/28/21 01/28/21 17:12 17:12 17:12 WBC 14.6 H RBC 4.25 L Hgb 11.6 L Hct 36.5 L MCV 85.9 MCH 27.2 MCHC 31.6 RDW 18.9 H Plt Count 196 Neut % (Auto) 76.4 H Lymph % (Auto) 13.6 L [place] % (Auto) 7.4 Eos % (Auto) 2.0 Baso % (Auto) 0.6 Neut # (Auto) 77660 H Lymph # (Auto) 2000 [place] # (Auto) 1100 H Eos # (Auto) 300 Baso # (Auto) 100 PT 32.1 H INR 2.8 H Sodium 139 Potassium 4.8 Chloride 104 Carbon Dioxide 31 BUN 48 H Creatinine 2.17 H Estimated GFR 29.7 L BUN/Creatinine Ratio 22.1 H Glucose 101 Lactate Calcium 9.5 Magnesium Total Bilirubin 0.8 AST 28 ALT 20 Alkaline Phosphatase 88 Total Creatine Kinase 114 CK-MB (CK-2) 0.61 CK-MB (CK-2) Rel Index 0.5 L Troponin I 0.019 C-Reactive Protein NT-Pro-B Natriuret Pep Total Protein 7.1 Albumin 3.6 Globulin 3.5 Albumin/Globulin Ratio 1.0 Lipase 36 Procalcitonin Urine RBC Urine WBC Ur Squamous Epith Cells Urine Bacteria Ur Culture Indicated? Nasal Screen MRSA (PCR) SARS-CoV-2 (PCR) 01/28/21 01/28/21 01/28/21 17:12 17:12 17:39 WBC RBC Hgb Hct MCV MCH MCHC RDW Plt Count Neut % (Auto) Lymph % (Auto) [place] % (Auto) Eos % (Auto) Baso % (Auto) Neut # (Auto) Lymph # (Auto) [place] # (Auto) Eos # (Auto) Baso # (Auto) PT INR Sodium Potassium Chloride Carbon Dioxide BUN Creatinine Estimated GFR BUN/Creatinine Ratio Glucose Lactate Calcium Magnesium 2.7 H Total Bilirubin AST ALT Alkaline Phosphatase Total Creatine Kinase CK-MB (CK-2) CK-MB (CK-2) Rel Index Troponin I C-Reactive Protein NT-Pro-B Natriuret Pep 2750 H Total Protein Albumin Globulin Albumin/Globulin Ratio Lipase Procalcitonin Urine RBC Urine WBC Ur Squamous Epith Cells Urine Bacteria Ur Culture Indicated? Nasal Screen MRSA (PCR) SARS-CoV-2 (PCR) Negative 01/28/21 01/28/21 01/28/21 17:39 19:08 19:08 WBC RBC Hgb Hct MCV MCH MCHC RDW Plt Count Neut % (Auto) Lymph % (Auto) [place] % (Auto) Eos % (Auto) Baso % (Auto) Neut # (Auto) Lymph # (Auto) [place] # (Auto) Eos # (Auto) Baso # (Auto) PT INR Sodium Potassium Chloride Carbon Dioxide BUN Creatinine Estimated GFR BUN/Creatinine Ratio Glucose Lactate 1.2 Calcium Magnesium Total Bilirubin AST ALT Alkaline Phosphatase Total Creatine Kinase CK-MB (CK-2) CK-MB (CK-2) Rel Index Troponin I C-Reactive Protein NT-Pro-B Natriuret Pep Total Protein Albumin Globulin Albumin/Globulin Ratio Lipase Procalcitonin 0.56 H Urine RBC 1-5/hpf Urine WBC 5-10/hpf H Ur Squamous Epith Cells 0-1 /hpf Urine Bacteria Occasional (0-1) Ur Culture Indicated? Specimen cultured Nasal Screen MRSA (PCR) SARS-CoV-2 (PCR) 01/28/21 01/28/21 01/28/21 19:21 20:16 21:40 WBC RBC Hgb Hct MCV MCH MCHC RDW Plt Count Neut % (Auto) Lymph % (Auto) [place] % (Auto) Eos % (Auto) Baso % (Auto) Neut # (Auto) Lymph # (Auto) [place] # (Auto) Eos # (Auto) Baso # (Auto) PT INR Sodium Potassium Chloride Carbon Dioxide BUN Creatinine Estimated GFR BUN/Creatinine Ratio Glucose Lactate Calcium Magnesium Total Bilirubin AST ALT Alkaline Phosphatase Total Creatine Kinase CK-MB (CK-2) CK-MB (CK-2) Rel Index Troponin I C-Reactive Protein 16.7 H NT-Pro-B Natriuret Pep Total Protein Albumin Globulin Albumin/Globulin Ratio Lipase Procalcitonin Urine RBC Urine WBC Ur Squamous Epith Cells Urine Bacteria Ur Culture Indicated? 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 Patient admitted with mild bilateral pneumonia with left trace parapneumonic effusion, Acute encephalopathy secondary to sepsis with JASS and without shock. 1.Mild bilateral pneumonia with left trace parapneumonic effusion and elevated troponin, acute, present on admission -WBC 14.6, neutrophils 11,100, mono 1100, HGB 11.6, HCT 36.5. CURB-65:2 Moderate Risk, Initial troponin 0.019. -patient has no increased oxygen man O2 saturation 95% on room air, Mild productive cough -Trend troponins, placed on telemed, in ICU observation bed-Acute Care patient status -Sputum/Blood cultures pending -chest x-ray demonstrated mild bilateral pneumonia. -KUB demonstrated bilateral renal calculi associated with mild bilateral hydronephrosis. Left basilar pneumonia with trace parapneumonic effusion. -Meds in ED: Vanco and 2 g Rocephin. Patient started on Rocephin 1 g q.day and doxycycline 100 mg b.i.d. due to interaction of azithromycin with Coumadin. -Labs:Lactate, Procalc, BNP, CBC, CMP, Mag, PT/INR, PTT, Resp panel, MRSA. 2. Sepsis with JASS without shock resulting in acute encephalopathy secondary to mild bilateral pneumonia, acute, present on admission -BUN of 48, creatinine 2.17 previous was 0.80, GFR of 29.7, previous GFR> 60. procalcitonin 0.56. SOFA:3 -Fluid resuscitation in ED per Sepsis Protocol, current: LR @100cc/hr -intake and output monitored Q/HR with a goal of urinary output greater than or equal to 50 cc/hr, Eldridge catheter and place, weight measure daily. -Monitor renal & electrolyte function. -patient's reports that the patient has had as many is 6 IV infusions outpatient to help with hydration. -C Diff PRN 3. Bilateral renal calculi, acute on chronic, present on admission -Managed by Urology Dr. Jeffries [facility] -KUB:Bilateral renal calculi associated with mild bilateral hydronephrosis. Left ureteropelvic junction calculus. No evidence of appendicitis. Left basilar pneumonia with trace parapneumonic effusion. Coronary artery disease. No change in sclerosis within the pelvis and proximal femoral, in a configuration suggestive of Paget's disease.? Bony metastatic disease could produce a similar appearance in the appropriate clinical setting.? -ED consulted Dr. Lombardi, Urology, who advised findings on CT and laboratory studies likely not needing immediate urological services.? Can be followed up on outpatient basis.? -Per Dr. Peters ED patient's medical records from [facility] were obtained and he had UPJ stone with a bump in his creatinine to 1.4 as maximum in September.? Patient had lithotripsy.? Patient tested positive for Enterococcus and was started on IV antibiotics including daptomycin and was ultimately switched orals (3months).?After this is creatinine improved and was 0.92 in July of 2020 and had a right ureteral stent at that time. -Eldridge placed to measure accurate I&O -U/A & culture ordered. ? 4. Essential hypertension, chronic, present on admission-well controlled -Managed by x ray developing machine operator Dr. Neri [facility] -on no medication at this time 5. Hyperlipidemia, related to coronary artery disease, chronic, present on admission -Continue home dose of atorvastatin 6.?Non insulin-dependent type 2 diabetes, Diabetes insipidus, chronic, present on admission-stable -Continue desmopressin -Patient will be able to take his own supply once Pharmacy has approved. 7.? Hypothyroidism, acquired, chronic, present on admission-stability unknown -Continue home dose of levothyroxine -TSHw/T4 ordered 8. History of CVA resulting in cerebellar ataxia and mood disorder, chronic, present on admission -continue home buspirone and quitiapine Code status:Full Surrogate decision maker: Spouse Elise Bridges COVID PCR:Negative COVID vaccination: Moderna 2020 DVT/VTE prophylaxis:SCD's and heparin 5000 Disposition: Patient admitted to acute care, expected length of stay greater than 2 midnights I have utilized all available immediate resources to obtain, update, or review the patient's current medications. Exception-the patient is not eligible for medication reconciliation; the patient is in an emergent medical situation were delaying treatment would jeopardize the patient's health. I confirmed that the patient's advanced care plan is present, Code status is documented and/or surrogate decision maker is listed in the patient's medical record. Time Spent With Patient Critical Care time: I spent a total of [] minutes of critical care time on this patient's care today; this time is exclusive of procedural time. Quality VTE Deep Vein Thrombosis/Pulmonary Embolism Present on Admission: No
[2021-01-29 07:52] LABS: Add Manual Diff / Slide Review NO; Basophils Absolute Auto 0 /uL (0-100); Basophils Percent Auto 0.4 % (0-2); Eosinophils Absolute Auto 400 /uL (0-450); Eosinophils Percent Auto 3.8 % (2-4); Hematocrit 32.9 % (41-53); Hemoglobin 10.6 g/dL (13.5-17.5); Lymphocytes Absolute Auto 1800 /uL (1100-4500); Lymphocytes Percent Auto 17.1 % (25-40); Mean Corpuscular HGB Conc 32.3 % (30-36); Mean Corpuscular Hemoglobin 27.6 PG (26-34); Mean Corpuscular Volume 85.5 fL (80-100); Monocytes Absolute Auto 1000 /uL (0-900); Monocytes Percent Auto 9.4 % (3-14); Neutrophils Absolute Auto 7200 /uL (1500-7000); Neutrophils Percent Auto 69.3 % (50-75); Platelet Count 164 X10^3/uL (150-400); Red Blood Cell Count 3.85 X10^6/uL (4.5-5.9); Red Cell Distribution Width 18.6 % (11.6-14.8); White Blood Cell Count 10.4 X10^3/uL (4.5-11.0)
[2021-01-29 08:12] LABS: INR 3.1 (0.9-1.3); Prothrombin Time 35.8 SECONDS (10.1-12.7)
[2021-01-29 08:15] LABS: PTT Partial Thromboplastin Tim 44 SECONDS (26.4-36.2)
[2021-01-29 08:16] LABS: Lactate (Lactic Acid) 0.7 mmol/L (0.7-2.1)
[2021-01-29 08:21] LABS: Alanine Aminotransferase 15 IU/L (<50); Albumin 2.8 g/dL (3.5-5.0); Alkaline Phosphatase 75 U/L (38-126); Aspartate Aminotransferase 23 IU/L (17-59); Bilirubin Total 0.5 mg/dL (0.2-1.3); Blood Urea Nitrogen 36 mg/dL (9-20); Calcium 8.9 mg/dL (8.4-10.2); Carbon Dioxide 26 mmol/L (22-32); Chloride 109 mmol/L (98-107); Globulin 2.8 g/dL (1.7-4.1); Glucose 81 mg/dL (80-110); HEMOLYSIS < 15 (0-50); Potassium 4.3 mmol/L (3.4-5.1); Sodium 138 mmol/L (137-145); Total Protein 5.6 g/dL (6.3-8.2)
[2021-01-29 08:27] LABS: NT-proBNP (BNP-Adult 18+) 2890 pg/mL (<450); Troponin I 0.015 ng/mL (0.01-0.034)
[2021-01-29] MEDS: LEVOTHYROXINE 75 MCG TABLET PO (08:30)
[2021-01-29] MEDS: ASPIRIN EC 81 MG TABLET PO (08:30)
[2021-01-29] MEDS: predniSONE 20 MG TABLET 40 MG PO (08:30)
[2021-01-29] MEDS: BUSPIRONE 5 MG TABLET 7.5 MG PO ×2 (08:30→20:46)
[2021-01-29] MEDS: ATORVASTATIN 20 MG TABLET PO (08:32)
[2021-01-29 08:47] LABS: TSH w/ Reflex to FT4 1.76 uIU/mL (0.47-4.68)
[2021-01-29] MEDS: DOXYCYCLINE 100 MG in SODIUM CHLORIDE 0.9% 100 ML IV ×2 (09:28→20:45)
[2021-01-29] MEDS: DESMOPRESSIN 0.2 MG TABLET 0.6 MG PO ×2 (09:28→20:46)
[2021-01-29 10:15] LABS: Adenovirus Not Detected (Not Detect); B. parapertussis Not Detected (Not Detecte); Bordetella pertussis Not Detected (Not Detecte); Chlamydophila pneumoniae Not Detected (Not Detect); Coronavirus 229E Not Detected (Not Detect); Coronavirus HKU1 Not Detected (Not Detect); Coronavirus NL 63 Not Detected (Not Detect); Coronavirus OC43 Not Detected (Not Detect); Human Metapneumovirus Not Detected (Not Detect); Human Rhinovirus/Enterovirus Not Detected (Not Detect); Influenza A Not Detected (Not Detect); Influenza B Not Detected (Not Detect); Mycoplasma pneumoniae Not Detected (Not Detect); Parainfluenza Virus 1 Not Detected (Not Detect); Parainfluenza Virus 2 Not Detected (Not Detect); Parainfluenza Virus 3 Not Detected (Not Detect); Parainfluenza Virus 4 Not Detected (Not Detect); Respiratory Syncytial Virus Not Detected (Not Detect); SARS- CoV-2 Not Detected (Not Detecte)
[2021-01-29 11:20] LABS: Troponin I 0.015 ng/mL (0.01-0.034)
--- NOTE | 2021-01-29 13:13 | PM.PN.1 ---
Subjective Subjective Date Patient Seen: 01/29/21 Time Patient Seen: 13:13 Interval history: This is a 75-year-old male who has a prior history of Enterococcus bacteremia, blood loss anemia, urinary tract hemorrhage, diabetes insipidus, hyponatremia, prior CVA, KELI, cutaneous T-cell lymphoma, prior spontaneous pneumothorax, chronic oropharyngeal dysphagia, paroxysmal atrial fibrillation, nephrolithiasis with recent laser lithotripsy and right ureteral stent placement, pseudobulbar palsy, and hypothyroidism. He was admitted overnight with an encephalopathy. He was found to have bilateral pneumonia as well as a possible urinary tract infection. He has improved today on IV antibiotics. He is alert and oriented x3 today. He denies any complaints including abdominal pain. He was also found to have an JASS I with a creatinine of 2 though this has improved to 1.64 this morning. Cultures are currently pending. Exam Vital Signs (past 8 hours): - 01/29/21 08:00 01/29/21 09:05 01/29/21 12:00 Temperature 98 F 97.9 F Pulse Rate 66 47 L Respiratory Rate 20 20 Blood Pressure 133/61 126/60 Pulse Oximetry 94 91 94 Oxygen Delivery Method Room Air Oxygen Flow Rate 0 Narrative Exam Narrative: General:? Patient is a well-developed, well-nourished? very drowsy elderly male, in no distress at this time. HEENT:? Normocephalic, atraumatic, extraocular muscles intact, oral pharynx is clear and mucous membranes are moist.? Neck is supple and symmetric, trachea is midline, no adenopathy, no thyroid enlargement, nontender, no masses palpated.? Negative for JVD Chest:? Normal AP diameter and contour without kyphoscoliosis, no nasal flaring, retractions, or tachypneic labored breathing. Lungs:? Auscultation of all lung elliott are clear without adventitious sounds, wheezes, rhonchi, or rales. Cardio:? Regular rate and rhythm without murmur, rub, or gallop. Abdomen:? Soft, nontender, and nondistended Musculoskeletal:? Muscle strength and tone are equal within normal limits, no deformity or joint effusion. Skin:? Warm dry and intact without rashes, ulcerations or petechiae.? Neuro:? Alert and orientated x3, strength is +5/5 in all extremities, sensation to touch intact, no gross deficits noted of cranial nerves. Psych:? Patient has a well-kept appearance, cooperative, pleasant. Objective Labs Result Diagrams: 01/29/21 07:05 01/29/21 07:05 Labs: Laboratory Results - last 24 hr 01/28/21 01/28/21 01/28/21 07:50 17:12 17:12 WBC 14.6 H RBC 4.25 L Hgb 11.6 L Hct 36.5 L MCV 85.9 MCH 27.2 MCHC 31.6 RDW 18.9 H Plt Count 196 Neut % (Auto) 76.4 H Lymph % (Auto) 13.6 L [place] % (Auto) 7.4 Eos % (Auto) 2.0 Baso % (Auto) 0.6 Neut # (Auto) 19560 H Lymph # (Auto) 2000 [place] # (Auto) 1100 H Eos # (Auto) 300 Baso # (Auto) 100 PT INR APTT Sodium 139 Potassium 4.8 Chloride 104 Carbon Dioxide 31 BUN 48 H Creatinine 2.17 H Estimated GFR 29.7 L BUN/Creatinine Ratio 22.1 H Glucose 101 Lactate Calcium 9.5 Magnesium Total Bilirubin 0.8 AST 28 ALT 20 Alkaline Phosphatase 88 Total Creatine Kinase 114 CK-MB (CK-2) 0.61 CK-MB (CK-2) Rel Index 0.5 L Troponin I 0.019 C-Reactive Protein NT-Pro-B Natriuret Pep Total Protein 7.1 Albumin 3.6 Globulin 3.5 Albumin/Globulin Ratio 1.0 Lipase 36 Procalcitonin TSH Urine RBC Urine WBC Ur Squamous Epith Cells Urine Bacteria Ur Culture Indicated? Nasal Screen MRSA (PCR) Chlamy pneumoniae PCR Not detected Adenovirus (PCR) Not detected B. pertussis DNA (PCR) Not detected B.parapertussis DNA PCR Not detected Coronavirus OC43 (PCR) Not detected Coronavirus HKU1 (PCR) Not detected Coronavirus 229E (PCR) Not detected SARS-CoV-2 (PCR) Not detected Coronavirus NL63 (PCR) Not detected Human Metapneumovir PCR Not detected Influenza Type A (PCR) Not detected Influenza Type B (PCR) Not detected M. pneumoniae (PCR) Not detected Parainfluenza 1 (PCR) Not detected Parainfluenza 2 (PCR) Not detected Parainfluenza 3 (PCR) Not detected Parainfluenza 4 (PCR) Not detected RSV (PCR) Not detected Entero/Rhino (PCR) Not detected 01/28/21 01/28/21 01/28/21 17:12 17:12 17:12 WBC RBC Hgb Hct MCV MCH MCHC RDW Plt Count Neut % (Auto) Lymph % (Auto) [place] % (Auto) Eos % (Auto) Baso % (Auto) Neut # (Auto) Lymph # (Auto) [place] # (Auto) Eos # (Auto) Baso # (Auto) PT 32.1 H INR 2.8 H APTT Sodium Potassium Chloride Carbon Dioxide BUN Creatinine Estimated GFR BUN/Creatinine Ratio Glucose Lactate Calcium Magnesium 2.7 H Total Bilirubin AST ALT Alkaline Phosphatase Total Creatine Kinase CK-MB (CK-2) CK-MB (CK-2) Rel Index Troponin I C-Reactive Protein NT-Pro-B Natriuret Pep 2750 H Total Protein Albumin Globulin Albumin/Globulin Ratio Lipase Procalcitonin TSH Urine RBC Urine WBC Ur Squamous Epith Cells Urine Bacteria Ur Culture Indicated? Nasal Screen MRSA (PCR) Chlamy pneumoniae PCR Adenovirus (PCR) B. pertussis DNA (PCR) B.parapertussis DNA PCR Coronavirus OC43 (PCR) Coronavirus HKU1 (PCR) Coronavirus 229E (PCR) SARS-CoV-2 (PCR) Coronavirus NL63 (PCR) Human Metapneumovir PCR Influenza Type A (PCR) Influenza Type B (PCR) M. pneumoniae (PCR) Parainfluenza 1 (PCR) Parainfluenza 2 (PCR) Parainfluenza 3 (PCR) Parainfluenza 4 (PCR) RSV (PCR) Entero/Rhino (PCR) 01/28/21 01/28/21 01/28/21 17:39 17:39 19:08 WBC RBC Hgb Hct MCV MCH MCHC RDW Plt Count Neut % (Auto) Lymph % (Auto) [place] % (Auto) Eos % (Auto) Baso % (Auto) Neut # (Auto) Lymph # (Auto) [place] # (Auto) Eos # (Auto) Baso # (Auto) PT INR APTT Sodium Potassium Chloride Carbon Dioxide BUN Creatinine Estimated GFR BUN/Creatinine Ratio Glucose Lactate 1.2 Calcium Magnesium Total Bilirubin AST ALT Alkaline Phosphatase Total Creatine Kinase CK-MB (CK-2) CK-MB (CK-2) Rel Index Troponin I C-Reactive Protein NT-Pro-B Natriuret Pep Total Protein Albumin Globulin Albumin/Globulin Ratio Lipase Procalcitonin TSH Urine RBC 1-5/hpf Urine WBC 5-10/hpf H Ur Squamous Epith Cells 0-1 /hpf Urine Bacteria Occasional (0-1) Ur Culture Indicated? Specimen cultured Nasal Screen MRSA (PCR) Chlamy pneumoniae PCR Adenovirus (PCR) B. pertussis DNA (PCR) B.parapertussis DNA PCR Coronavirus OC43 (PCR) Coronavirus HKU1 (PCR) Coronavirus 229E (PCR) SARS-CoV-2 (PCR) Negative Coronavirus NL63 (PCR) Human Metapneumovir PCR Influenza Type A (PCR) Influenza Type B (PCR) M. pneumoniae (PCR) Parainfluenza 1 (PCR) Parainfluenza 2 (PCR) Parainfluenza 3 (PCR) Parainfluenza 4 (PCR) RSV (PCR) Entero/Rhino (PCR) 01/28/21 01/28/21 01/28/21 19:08 19:21 20:16 WBC RBC Hgb Hct MCV MCH MCHC RDW Plt Count Neut % (Auto) Lymph % (Auto) [place] % (Auto) Eos % (Auto) Baso % (Auto) Neut # (Auto) Lymph # (Auto) [place] # (Auto) Eos # (Auto) Baso # (Auto) PT INR APTT Sodium Potassium Chloride Carbon Dioxide BUN Creatinine Estimated GFR BUN/Creatinine Ratio Glucose Lactate Calcium Magnesium Total Bilirubin AST ALT Alkaline Phosphatase Total Creatine Kinase CK-MB (CK-2) CK-MB (CK-2) Rel Index Troponin I C-Reactive Protein 16.7 H NT-Pro-B Natriuret Pep Total Protein Albumin Globulin Albumin/Globulin Ratio Lipase Procalcitonin 0.56 H TSH Urine RBC Urine WBC Ur Squamous Epith Cells Urine Bacteria Ur Culture Indicated? Nasal Screen MRSA (PCR) Chlamy pneumoniae PCR Adenovirus (PCR) B. pertussis DNA (PCR) B.parapertussis DNA PCR Coronavirus OC43 (PCR) Coronavirus HKU1 (PCR) Coronavirus 229E (PCR) SARS-CoV-2 (PCR) Negative Coronavirus NL63 (PCR) Human Metapneumovir PCR Influenza Type A (PCR) Influenza Type B (PCR) M. pneumoniae (PCR) Parainfluenza 1 (PCR) Parainfluenza 2 (PCR) Parainfluenza 3 (PCR) Parainfluenza 4 (PCR) RSV (PCR) Entero/Rhino (PCR) 01/28/21 01/29/21 01/29/21 21:40 07:05 07:05 WBC 10.4 RBC 3.85 L Hgb 10.6 L Hct 32.9 L MCV 85.5 MCH 27.6 MCHC 32.3 RDW 18.6 H Plt Count 164 Neut % (Auto) 69.3 Lymph % (Auto) 17.1 L [place] % (Auto) 9.4 Eos % (Auto) 3.8 Baso % (Auto) 0.4 Neut # (Auto) 7200 H Lymph # (Auto) 1800 [place] # (Auto) 1000 H Eos # (Auto) 400 Baso # (Auto) 0 PT 35.8 H INR 3.1 H APTT 44 H D Sodium Potassium Chloride Carbon Dioxide BUN Creatinine Estimated GFR BUN/Creatinine Ratio Glucose Lactate Calcium Magnesium Total Bilirubin AST ALT Alkaline Phosphatase Total Creatine Kinase CK-MB (CK-2) CK-MB (CK-2) Rel Index Troponin I C-Reactive Protein NT-Pro-B Natriuret Pep Total Protein Albumin Globulin Albumin/Globulin Ratio Lipase Procalcitonin TSH Urine RBC Urine WBC Ur Squamous Epith Cells Urine Bacteria Ur Culture Indicated? Nasal Screen MRSA (PCR) Negative for mrsa Chlamy pneumoniae PCR Adenovirus (PCR) B. pertussis DNA (PCR) B.parapertussis DNA PCR Coronavirus OC43 (PCR) Coronavirus HKU1 (PCR) Coronavirus 229E (PCR) SARS-CoV-2 (PCR) Coronavirus NL63 (PCR) Human Metapneumovir PCR Influenza Type A (PCR) Influenza Type B (PCR) M. pneumoniae (PCR) Parainfluenza 1 (PCR) Parainfluenza 2 (PCR) Parainfluenza 3 (PCR) Parainfluenza 4 (PCR) RSV (PCR) Entero/Rhino (PCR) 01/29/21 01/29/21 01/29/21 07:05 07:05 07:05 WBC RBC Hgb Hct MCV MCH MCHC RDW Plt Count Neut % (Auto) Lymph % (Auto) [place] % (Auto) Eos % (Auto) Baso % (Auto) Neut # (Auto) Lymph # (Auto) [place] # (Auto) Eos # (Auto) Baso # (Auto) PT INR APTT Sodium 138 Potassium 4.3 Chloride 109 H Carbon Dioxide 26 BUN 36 H Creatinine 1.64 H Estimated GFR 41.0 L BUN/Creatinine Ratio 22.0 Glucose 81 Lactate 0.7 Calcium 8.9 Magnesium Total Bilirubin 0.5 AST 23 ALT 15 Alkaline Phosphatase 75 Total Creatine Kinase CK-MB (CK-2) CK-MB (CK-2) Rel Index Troponin I 0.015 C-Reactive Protein NT-Pro-B Natriuret Pep 2890 H Cancelled Total Protein 5.6 L Albumin 2.8 L Globulin 2.8 Albumin/Globulin Ratio 1.0 Lipase Procalcitonin TSH Urine RBC Urine WBC Ur Squamous Epith Cells Urine Bacteria Ur Culture Indicated? Nasal Screen MRSA (PCR) Chlamy pneumoniae PCR Adenovirus (PCR) B. pertussis DNA (PCR) B.parapertussis DNA PCR Coronavirus OC43 (PCR) Coronavirus HKU1 (PCR) Coronavirus 229E (PCR) SARS-CoV-2 (PCR) Coronavirus NL63 (PCR) Human Metapneumovir PCR Influenza Type A (PCR) Influenza Type B (PCR) M. pneumoniae (PCR) Parainfluenza 1 (PCR) Parainfluenza 2 (PCR) Parainfluenza 3 (PCR) Parainfluenza 4 (PCR) RSV (PCR) Entero/Rhino (PCR) 01/29/21 01/29/21 07:05 10:45 WBC RBC Hgb Hct MCV MCH MCHC RDW Plt Count Neut % (Auto) Lymph % (Auto) [place] % (Auto) Eos % (Auto) Baso % (Auto) Neut # (Auto) Lymph # (Auto) [place] # (Auto) Eos # (Auto) Baso # (Auto) PT INR APTT Sodium Potassium Chloride Carbon Dioxide BUN Creatinine Estimated GFR BUN/Creatinine Ratio Glucose Lactate Calcium Magnesium Total Bilirubin AST ALT Alkaline Phosphatase Total Creatine Kinase CK-MB (CK-2) CK-MB (CK-2) Rel Index Troponin I 0.015 C-Reactive Protein NT-Pro-B Natriuret Pep Total Protein Albumin Globulin Albumin/Globulin Ratio Lipase Procalcitonin TSH 1.76 Urine RBC Urine WBC Ur Squamous Epith Cells Urine Bacteria Ur Culture Indicated? Nasal Screen MRSA (PCR) Chlamy pneumoniae PCR Adenovirus (PCR) B. pertussis DNA (PCR) B.parapertussis DNA PCR Coronavirus OC43 (PCR) Coronavirus HKU1 (PCR) Coronavirus 229E (PCR) SARS-CoV-2 (PCR) Coronavirus NL63 (PCR) Human Metapneumovir PCR Influenza Type A (PCR) Influenza Type B (PCR) M. 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) Non-insulin dependent type 2 diabetes mellitus Prostate cancer Surgical History (Updated 01/29/21 @ 03:58 by PASQUALE Badillo) History of heart artery stent History of heart bypass surgery Family History Mother Breast cancer Father Lung cancer Alcoholism in family member Social History household members: spouse Smoking Status: Current every day smoker second hand exposure: No alcohol intake: never substance use type: does not use Assessment & Plan Assessment & Plan narrative: William Bridges is a 75-year-old male with 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 Patient admitted with mild bilateral pneumonia with left trace parapneumonic effusion, Acute encephalopathy secondary to sepsis with JASS and without shock. 1.Mild bilateral pneumonia, presume probable aspiration, with left trace parapneumonic effusion and elevated troponin, acute, present on admission - has a history of dysphagia per OSH records. presume aspiration. - continue ceftriaxone and doxy. - Speech eval ordered. 2. Sepsis with JASS without shock resulting in acute encephalopathy secondary to mild bilateral pneumonia and possible acute cystitis, acute, present on admission -BUN of 48, creatinine 2.17 previous was 0.80, GFR of 29.7, previous GFR> 60. procalcitonin 0.56. SOFA:3 -Fluid resuscitation in ED? per Sepsis Protocol, current: LR @100cc/hr 3. Bilateral renal calculi, acute on chronic, present on admission. With possible acute on chronic cystitis. -Managed by Urology Dr. Jeffries [facility]:Bilateral renal calculi associated with mild bilateral hydronephrosis. Left ureteropelvic junction calculus. No evidence of appendicitis. Left basilar pneumonia with trace parapneumonic effusion. Coronary artery disease. No change in sclerosis within the pelvis and proximal femoral, in a configuration suggestive of Paget's disease.? Bony metastatic disease could produce a similar appearance in the appropriate clinical setting.? -ED consulted Dr. Lombardi, Urology, who advised findings on CT and laboratory studies likely not needing immediate urological services.? Can be followed up on outpatient basis.? -Per Dr. Peters ED patient's medical records from [facility] were obtained and he had UPJ stone with a bump in his creatinine to 1.4 as maximum in September.? Patient had lithotripsy.? Patient tested positive for Enterococcus and was started on IV antibiotics including daptomycin and was ultimately switched orals (3months).?After this is creatinine improved and was 0.92 in July of 2020 and had a right ureteral stent at that time. -Eldridge placed to measure accurate I&O -U/A appears slightly positive, follow up cultures. Prior enterococcus per OSH records. -continue above antibiotics given improvement. 4. Essential hypertension, chronic,? present on admission-well controlled -Managed by perfume maker Dr. Neri [facility] ?-on no medication at this time 5. Hyperlipidemia, related to coronary artery disease, chronic, present on admission -Continue home dose of atorvastatin 6.?Non insulin-dependent type 2 diabetes, Diabetes insipidus, chronic, present on admission-stable -Continue desmopressin -Patient will be able to take his own supply once Pharmacy has approved. 7.? Hypothyroidism, acquired, chronic, present on admission-stability unknown -Continue home dose of levothyroxine -TSHw/T4 ordered 8. History of CVA resulting in cerebellar ataxia and mood disorder, chronic, present on admission -continue home buspirone and quitiapine Code status:Full Surrogate decision maker: Spouse Elise Bridges COVID PCR:Negative COVID vaccination: Moderna 2020 DVT/VTE prophylaxis:SCD's and heparin 5000 Disposition:?remains inpatient. Possible home in the next 1-2 days depending on improvement in creatinine. Time Spent With Patient Critical Care time: I spent a total of [] minutes of critical care time on this patient's care today; this time is exclusive of procedural time. Quality VTE Deep Vein Thrombosis/Pulmonary Embolism Present on Admission: No
--- NOTE | 2021-01-29 13:15 | PT.IIE ---
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 pt has h/o falls but per spouse, this is when pt forgets his 4WW or turns too fast. Social History Household Members spouse Living Arrangements House Number of Floors (Floors) One Floor Number of Stairs To Enter/Railing? ramp to enter Home Environment High Toilet,Walk in Shower, Ramp Home Equipment Front Wheel Walker,Four Wheel Walker,Shower Seat with Backrest,Hand Held Shower,Grab Bars In Shower Additional Social History Comment pt's spouse is a retired MAGNETIC LOCATER M2 PT-IP Current Condition Start: 01/29/21 14:06 Freq: NEEDED Status: Active Protocol: Document 01/29/21 13:15 AB (Rec: 01/29/21 14:32 AB [id number]) Physical Therapy Current Condition Current Condition Evaluation Date 01/29/21 Treatment Diagnosis UTI; PNA; difficulty in walking Onset Date 01/28/21 Precautions Other Precautions falls; bradycardia M3 PT-IP Subjective Start: 01/29/21 14:06 Freq: NEEDED Status: Active Protocol: Document 01/29/21 13:15 AB (Rec: 01/29/21 14:32 AB [email or web address]) Subjective Physical Therapy Visit Type Type Initial Evaluation Visit Start Time 13:15 Visit Stop Time 14:00 Total Visit Minutes 45 Number of MAGNETIC LOCATER Visits 0 Physical Therapy Visit Comments Patient Comments agreeable to do PT Therapy Pain Assessment Pain Present Pain Present Denied Pain M4 PT-IP Mobility and Gait Start: 01/29/21 14:06 Freq: NEEDED Status: Active Protocol: Document 01/29/21 13:15 AB (Rec: 01/29/21 14:32 AB [id number]) PT-Bed Mobility Assessment Supine to Sit Supine to Sit Standby Assistance PT-Transfer Assessment Sit to and From Stand Sit to and from Stand Minimal Assistance,Moderate Assistance Equipment Transfer Assistive Device Gait Belt,Front Wheeled Walker Orthotic/Prosthetic Devices or Brace: No Transfers Transfer Destination Chair Transfer Technique ambulated using fWW Transfer Ability Level of Assist Minimal Assistance,Moderate Assistance,1 Person Assistance ,Use of Upper Extremities Comments Mobility Comments pt supine in bed. spouse in room. pt can be impulsive and needs repeated cues/ instructions. pt completed supine to sit SBA. able to sit on EOB CGA. pt has slightly slurred speech and (+ ) drooling. completed sit to stand min to mod A and max cues. (+) LOB posteriorly requiring mod A for steadiness . ambulated towards the chair min to mod A and max cues using FWW ~ 12 ft. continues to have posterior LOB during ambulation. pt sat on chair. informed nurse that pt needs to be cleaned up. completed sit to stand again from chair but pt immediately sit back down. pt is very impulsive and needs constant cues for safety. pt completed sit to stand again min to mod A, min A for static standing balance using FWW for support and max cues to decrease posterior trunk LOB. Nurse assisted pt with hygiene care and brief change. pt sat back on chair. pt educated on sit<>stand technique and COG awareness. pt completed sit<>stand x 2 reps CGA and cues. min to mod A with initial standing using FWW for support and instructed on maintaining COG pt requiring min A but towards the end of standing still required mod A. pt sat down on chair. stated that , that is all he can do. positioned pt on chair. call light and table placed within reach. informed nurse regarding chair alarm for pt. Gait Assessment Gait Gait Assistance Required: Minimum Assistance,Moderate Assistance Distance (Feet) 12 Able to Maintain Weight Bearing Status Yes During Gait Assistive Devices Assistive Device Gait Belt,Front Wheeled Walker Orthotic/Prosthetic Devices or Brace: No Gait Deviations General Gait Pattern Ataxic,Decreased Stride Length ,Decreased Feet Clearance,Wide Based Gait Factors Limiting Gait Function Factors Limiting Gait Function Decreased Activity Tolerance, Decreased Strength,Difficulty Following Directions,Poor Balance,Poor Safety Awareness Comments Gait Comments pls refer to mobility section for details PT-Balance Assessment Sitting Balance and Reactions Static Sitting Balance Ability Good Dynamic Sitting Balance Ability Fair Standing Balance and Reactions Static Standing Balance Ability Poor Dynamic Standing Balance Ability Poor Device Used FWW M5 PT-IP Objective Assessments Start: 01/29/21 14:06 Freq: NEEDED Status: Active Protocol: Document 01/29/21 13:15 AB (Rec: 01/29/21 14:32 AB [id number]) Orientation Orientation/Cognition Level of Alertness Alert Language Function Ability Garbled Speech,Hard of Hearing Safety Awareness Decreased Safety Awareness Memory Description Short Term Impaired Gross Range of Motion Lower Extremity ROM Assessment Within Functional Limits Strength Lower Extremity Strength Hip 4-/5 Knee 4-/5 Muscle Tone Muscle Tone WNL Yes M6 PT-IP Treatment Start: 01/29/21 14:06 Freq: NEEDED Status: Active Protocol: Document 01/29/21 13:15 AB (Rec: 01/29/21 14:32 AB [id number]) Physical Therapy Treatment Education Education Provided Safety M7 PT-IP Assessment and Plan Start: 01/29/21 14:06 Freq: NEEDED Status: Active Protocol: Document 01/29/21 13:15 AB (Rec: 01/29/21 14:32 AB [email or web address]) PT Summary Assessment and Plan Potential Rehabilitation Potential Fair Status of Condition at Evaluation Evolving Summary Impairments Pain,ROM,Strength,Balance, Coordination,Sensation,Tone, Cognition,Bed Mobility, Transfers,Gait,Activity Tolerance Assessment Summary pt requiring min to mod A with mobility using FWW with tendency to lose balance posteriorly. pt is also impulsive affecting safety. presents with decrease activity tolerance. Pt's spouse is a retired MAGNETIC LOCATER and will be able to assist pt if needed. will conduct caregiver training when appropriate and will also benefit from HHPT. Goals Bed Mobility Goal Independent Transfer Goal Standby Assistance,Front Wheeled Walker,Four Wheeled Walker Gait Goal Standby Assistance,Front Wheel Walker,Four Wheel Walker Gait Distance 100 Days to Meet Goals 5 Frequency of Treatment Frequency Of Treatment Once a Day Treatment Plan Physical Therapy Treatment Plan Bed Mobility Training,Transfer Training,Gait Training, Therapeutic Exercise,Balance Retraining,Discharge Planning, Hot or Cold Pack,Neuromuscular Re-ed,Coordination Retraining Other Recommendations and Next Treatment ambulation using 4WW when Focus appropriate, caregiver training Precautions Other Precautions falls, bradycardia Recommendations To Nursing Amount of Assist Needed 1 Person Assist Discharge Recommendations PT Discharge Recommendations Home with 24/ Assist Available,Home Health Transportation Needs at Discharge Private Vehicle
--- NOTE | 2021-01-29 14:08 | CM.DANOTE ---
Addendum entered by LEA Luke 01/29/21 15:18: ADD: Per PT, recommending home with assist and HH. SW spoke to OT who states pt and spouse participated in eval and spouse is a retired SPRING UPHOLSTERER and aware of appropriate ways to assist pt. Pt leaning back on his heals which increased his fall risk and spouse now aware. OT feels pt could benefit from HH RN/PT at d/c but discussed with spouse and pt and they confirm he had Sig HH in September and are not sure they want/need HH at d/c and would like to see how pt progresses with therapy tomorrow before deciding. SW made initial Sig HH referral in case pt/spouse decide they want HH at d/c. F2F filled out but not signed by MD yet. Plan: SW to follow closely tomorrow after further PT and then discussion with pt and spouse to determine if HH needed/wanted at discharge. BF Original Note: Patient is a 75 yo male who was admitted on 01/28/21 for Unresponsiveness. Pt has MCR and REG UNIF for insurance and his PCP is Elbert Rowe. EMR was reviewed. 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 Pt admitted for bilateral pneumonia, encephalopathy, and sepsis. Pt fully COVID vaccinated and Full Code. PT/OT ordered and pending. Pt was last admitted in Nov 2018 and had to be transferred to [facility] for higher level of care needs. SW met bedside with pt and spouse and explained role and they confirm that they lives at home in [facility] and pt is mostly independent at baseline but no longer drives and spouse provides transport and pt uses a walker at baseline. Pt cofirms he has a hx of using HH a few times in the past and felt it was fairly helpful. Spouse mostly wants to see how pt ambulates once PT/OT eval pt towards their preference of d/c home and possible need of new HH referral. They do not anticipate any further needs. Plan: SW to follow closely for PT/OT eval and recommedations to confirm pt and spouse plan of home and r/o HH. LEA Luke Discharge Planning/Care Management CM Discharge Assessment Start: 01/29/21 13:44 Freq: Status: Active Protocol: Document 01/29/21 13:44 BF (Rec: 01/29/21 14:08 BF [id number]) Discharge Planning Assessment Assigned Sound Technician LEA Choudhary DPOA/Assigned Designee Name spouse Elise Contact Information [phone] Advance Directives? Yes Advance Directives on File No History Provided By Patient,Significant Other, Medical Record Has Patient been admitted in last 30 No days? Prior Living Arrangements House Household Members spouse Type of transporation used prior to Relies on Others admit Comment Spouse transports Independent with ADL's Yes Is patient alert and oriented? Yes Needs Assistance With Managing Medications,Home Chores / Shopping Caregiver for Another No Patient/Family Preference Home with Home Health Comment Pending PT/OT eval and recommendations, r/o HH Barriers to Discharge No Discharge Plan Home Community Services Physical Therapy Transportation Arrangement Spouse bedside and confirms she can transport Additional Comment Pending PT/OT recommendations Whiteboard Updated in Patient Room with Yes name and ext. # of Sound Technician Review Status In Process Please Provide Date Initial DC 01/29/21 Assessment Was Performed Next Review Type Continued Stay Review
--- NOTE | 2021-01-29 14:51 | PC.NURSE ---
PT DOING FAIR-GOOD, TOLERATING ROOM AIR AND DIET CHANGES TO ADVANCED DYSPHAGIA WITH THIN LIQUIDS, REMAINS IN SA/SB RHYTHM WITH 1ST DEGREE AVB - SLIGHT EDEMA TO BILAT LOWER EXTREMITIES- AM TOLD BY PT AND SPOUSE THAT THIS IS HIS NORM. HE DENIES ANY PAIN AND IS BEING ASSESSED BY PT/OT/ST- PACHECO PATENT AND IV IS SALINE LOCKED - CONTINUING IV ABX AT THIS TIME.
--- NOTE | 2021-01-29 15:04 | OT.IP.EVAL ---
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) Non-insulin dependent type 2 diabetes mellitus Prostate cancer Surgical History (Last Updated 01/29/21 @ 03:58 [facility] History of heart artery stent History of heart bypass surgery Occupational Therapy Inpatient Evaluation/Re-Eval M1 PT/OT-IP Prior Functional Status Start: 01/29/21 14:06 Freq: NEEDED Status: Active Protocol: Document 01/29/21 14:05 [facility] (Rec: 01/29/21 15:25 [facility] [id number]) Medical Review Prior Functional Status Medical History Reviewed Yes Communication able to make needs know requires repeated instructions ; PILOT STATION Mobility and Gait per spouse: pt is able to complete with all mobilities and ambulation using a 4WW and spouse only provided supervision. pt has h/o falls but per spouse, this is when pt forgets his 4WW or turns too fast. Activities of Daily Living and IADL's Pt able to do all ADl's on his own and that his provides supervision for safety. Prior Functional Level (Other details) Pt states has had one fall in the past month, 2 falls in the past 6 months, and half a dozen fall in the past year. Pt states he usually falls backwards. Social History Household Members spouse Living Arrangements House Number of Floors (Floors) One Floor Number of Stairs To Enter/Railing? ramp to enter Home Environment High Toilet,Walk in Shower, Ramp Home Equipment Front Wheel Walker,Four Wheel Walker,Shower Seat with Backrest,Hand Held Shower,Grab Bars In Shower Additional Social History Comment pt's spouse is a retired MD OPHTHALMOLOGIST M2 OT-IP Current Condition Start: 01/29/21 15:03 Freq: Status: Active Protocol: Document 01/29/21 14:05 [facility] (Rec: 01/29/21 15:25 [facility] [id number]) Occupational Therapy Current Condition Current Condition Evaluation Date 01/29/21 Treatment Diagnosis Bilateral PNA, acute encephalopathy, decreased mobility Diagnosis Onset Date 01/28/21 M3 OT- IP Subjective and Pain Start: 01/29/21 15:03 Freq: Status: Active Protocol: Document 01/29/21 14:05 [facility] (Rec: 01/29/21 15:25 [facility] [id number]) OT- Subjective Occupational Therapy Visit Type Type Initial Evaluation Visit Start Time 14:05 Visit Stop Time 15:04 Total Visit Minutes 59 Occupational Therapy Visit Comments Patient Comments Pt agreed to work with OT and STEAM FITTER HELPER present for part of the session. Pt's in the room for OT eval. Patient/Caregiver Goals TO go home. OT Pain Assessment Pain When Pain Assessed At Rest Pain Present Pain Present Denied Pain M4 OT- IP ADL's Start: 01/29/21 15:03 Freq: Status: Active Protocol: Document 01/29/21 14:05 [facility] (Rec: 01/29/21 15:25 [facility] [id number]) OT [id number] General Evaluation Self-Feeding Ability Standby Assistance Comments OT Self-Feeding Comments Pt able to self -feed himself and needing cues for chin tuck at time and to slow down. OT ADL-Grooming General Evaluation Grooming Ability Standby Assistance Areas Needing Assistance Retrieving/Set-up of Grooming Items Comments OT Grooming Comments SBA while at the sink with FWW . OT ADL-Oral Care General Eval Oral Care Ability Standby Assistance Comments Oral Care Comments Pt needing cues to rinse his mouth out but pt refusing to do so. OT ADL-Dressing General Eval Lower Body Dressing Ability Standby Assistance Comments OT Dressing Comments Pt able to lissa/doff his socks and shoes on his own while seated in the recliner. OT ADL-Toileting General Evaluation Toileting Ability Total Assistance Comments OT Toileting Comments Eldridge still in place. OT ADL-Bathing Comments OT Bathing Comments Pt states has a shower chair that he uses to shower with in addition to a hand held shower spray. M5 OT- IP IADL's Start: 01/29/21 15:03 Freq: Status: Active Protocol: Document 01/29/21 14:05 [facility] (Rec: 01/29/21 15:25 [facility] [id number]) OT-Instrumental Activities of Daily Living Home Safety Awareness Awareness of Need for Assistance at Home Decreased Awareness Medication Management Medication Management Caregiver Administers Money Management Money Management Caregiver Provides Assistance Meal Preparation Meal Preparation Caregiver Provides Assist Service Desk Associate Service Desk Associate Caregiver Provides Assist Driving Driving Caregiver Provides Assist M6 OT- IP Functional Cognition Start: 01/29/21 15:03 Freq: Status: Active Protocol: Document 01/29/21 14:05 [facility] (Rec: 01/29/21 15:25 [facility] [id number]) Cognitive Factors Limiting Selfcare Function Cognitive Ability Level of Alertness Alert Patient Orientation Name Attention Span Ability Capable of Focused Attention, Capable of Sustained Attention Ability to Follow Commands Able to Follow One Step Commands Safety Awareness Underestimates Need for Assistance Cognitive Comments Cognitive Assessment Comments Pt decreased safety awareness and tends to want to direct his own care and when asked to rinse his mouth out after brushing his teeth, pt refused . Pt's states at time that pt will not use his walker and just furniture cruise. OT- Vision and Hearing OT- Hearing Assessment OT- Hearing Assessment WFL OT- Vision Assessment Visual Acuity Glasses For Reading Vision Assessment Comments Pt able to read the clock accurately. Pt tends to squint his left eye. Per to be bringing him to the eye doctor soon. M7 OT- IP Mobility and Balance Start: 01/29/21 15:03 Freq: Status: Active Protocol: Document 01/29/21 14:05 [facility] (Rec: 01/29/21 15:25 [facility] [id number]) OT-Transfer Assessment Sit to and From Stand Sit to and from Stand Minimal Assistance Transfers Transfer Ability Contact Guard Assistance, Minimal Assistance Technique Transfer Destination Chair Transfer Technique Stand Step Pivot Devices Transfer Assistive Devices Gait Belt,Front Wheeled Walker Comments Mobility Comments Pt's able to lissa/doff gait belt and assist pt for mobility with the FWW while in the room. Initially had to prompt his to assist pt as needed. Pt tends to lean on his heels and needign cues to get his weight over his feet. OT- Gait Assessment Comments Gait Ability Comments Pt's having to provide from CGA to NICOLE with FWW for his balance. OT- Balance Assessment Sitting Balance and Reactions Static Sitting Balance Ability Good Dynamic Sitting Balance Ability Good Standing Balance and Reactions Static Standing Balance Ability Poor Dynamic Standing Balance Ability Poor M8 OT- IP Objective Assessments Start: 01/29/21 15:03 Freq: Status: Active Protocol: Document 01/29/21 14:05 [facility] (Rec: 01/29/21 15:25 [facility] [id number]) OT Gross Range of Motion Upper Extremity Range of Motion Assessment Within Functional Limits OT Strength Upper Extremity Strength Assessment Within Functional Limits OT- Coordination Assessment Comments Coordination Comments Pt has ataxic movement with his hands, but able to tie his shoes on his own. M9 OT- IP Assessment and Plan Start: 01/29/21 15:03 Freq: Status: Active Protocol: Document 01/29/21 14:05 [facility] (Rec: 01/29/21 15:25 [facility] [id number]) OT Summary Assessment and Plan Potential Rehabilitation Potential Good Analytic Complexity at Evaluation Moderate Summary OT Impairments Balance,Functional Cognition, Functional Mobility,Dressing, Toileting,Bathing Progress Towards Goals Slow Progress due to Medical Issues,Slow Progress due to Cognition Assessment Summary Pt MOD complexity and main barriers are decreased balance , decreased safety awareness, and now needing one person assist for all needs. Pt's is a retired MD OPHTHALMOLOGIST that is able to safely assist pt for all needs, however per pt's -the pt does not listen to her at times. Pt would benefit from 24 /7 assist and home health as pt is a high fall risk. Goals Grooming Goal Independent Dressing Goal Independent Toileting Goal Independent Bathing Goal Independent Toilet Transfer Goal Independent Shower Transfer Goal Independent Patient/Caregiver Education Goal Caregiver Independent Assisting Patient Days to Meet Goals 7 Frequency of Treatment Frequency Of Treatment Once a Day Treatment Plan OT Treatment Plan ADL Training,Functional Cognition Training,Functional Mobility,Patient/Family Education,Discharge Planning Other Treatment Recommendations and Next shower Treatment Focus Discharge Recommendations OT Discharge Recommendations Home with 24/7 Assist Available,Home Health Transportation Needs at Discharge Private Vehicle
--- NOTE | 2021-01-29 15:29 | ST.IPCSEOM ---
Visit Care Team Role Provider Type Elbert Rowe MD Primary Care Provider Non-Staff Specialty: Medical Address: [address] [place], [place] [address] [address], [address] Email: Michael Jefferson MD Emergency Provider Physician Referring Provider Specialty: Emergency Medicine Address: [address] [place] [address], [address] Email: [email or web address] [facility] Physician Attending Provider Specialty: Medical Address: [address] [place] [address], [id number] Email: Current Diagnoses Pneumonia, unspecified organism (01/28/21) Past Medical History (Last Updated 01/29/21 @ 03:[address] 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) (Medical) Non-insulin dependent type 2 diabetes mellitus (Medical) Prostate cancer (Medical) Speech-Language Pathology Swallow Evaluation SHOCK ABSORPTION FLOOR LAYER Clinical Swallow Evaluation Start: 01/29/21 14:51 Freq: Status: Active Protocol: Document 01/29/21 14:53 [facility] (Rec: 01/29/21 15:29 [facility] [id number]) Clinical Swallow Evaluation Session Time Visit Start Time 14:10 Visit Stop Time 14:45 Total Visit Minutes 35 Visit Information Visit Number 1 Setting Assessment Location Acute Care Visit Type Note Type Initial evaluation Next Note Type Next Note Type Treatment Note Patient Information Identification Type Name,Wristband History Pt is a 75-year-old male with known spinal cerebellar ataxia & mood disorder due to CVA, coronary artery bypass with valve replacement x3 and planned watchman device being placed on February 17, chronic bradycardia, and hypothyroidism who was brought in today by his , she found him unresponsive in the car while out running errands. ? Nursing staff was able to awaken him to transfer to wheelchair.? Patient typically does use a walker for ambulation but performs all other ADLs without assistance. ?Patient has had a cough for the past week which has been nonproductive, afebrile, not altered?prior to today.? He is back at his normal baseline mentation according to him and his in the room.? Patient denies any chest pain, chest pressure, no syncope, lightheadedness, difficulty swallowing, and pain, nausea, vomiting.? He has had some chronic urinary retention in the past not persistently. He smokes cigars, occasional alcohol, no illicit.?Patient admitted with mild bilateral pneumonia with left trace parapneumonic effusion, acute encephalopathy secondary to sepsis with JASS and without shock. Subjective Observations Pt was sitting in chair next to bedside with and OT present in the room. Pt was agreeable to swallow evaluation. Information stated below was presented to this SHOCK ABSORPTION FLOOR LAYER by pt's and pt during intake interview: pt has a history of aspiration. Pt had a MBSS done at [facility] this past summer. Per results of the MBSS, ST reported that the pt had no difference in swallowing abilities with thin liquids vs thickened liquids, so he could have whatever he wanted to drink. ST reported that pt should avoid tough, chewy foods like steak and chicken. Pt has received speech therapy in the past through home health, but does not currently receive speech therapy. It was reported that when pt previously received speech therapy, they worked on his dysarthria and strategies for swallowing. Pt does not use strategies often that he had worked on in the past. Reported by Patient Other Symptoms Choking,Coughing,Difficulty swallowing liquids,Difficulty swallowing solids,Drooling, History of aspiration or pneumonia Current Diet Regular,Thin liquids Baseline Feeding Method Independent in self-feeding Patient Questionnaire No Objective Assessment Mental Status Alert,Responsive,Cooperative, Impulsive Oral Integrity WFL Dentition Missing teeth,Decay Lip Function Mild impairment Observation of Lips at Rest Symmetrical Pucker Reduced range of motion Lip Retraction Within normal limits Alternating Pucker/Lip Retraction Reduced range of motion, Incoordination Tongue Function Mild impairment Observations of Tongue at Rest Within normal limits Tongue Protrusion Involuntary movement(s) Tongue Retraction Reduced range of motion Tongue Lateralization Incoordination Jaw Function Mild impairment Observations of Jaw at Rest Within normal limits Jaw Opening Reduced strength Jaw Closing Reduced strength Jaw Lateralization Incoordination Hard/Soft Palate Function Within normal limits Observations of Hard/Soft Palate Within normal limits Nasality Within normal limits Phonation Harsh Respiratory Sufficiency Mild impairment Comment Due to the pt's diagnosis of ataxia, oral motor movements appear impacted. Many requests resulted in some mild incoordination of the articulators. Pt presents with moderate dysarthria at this time as well, however it appears the pt utilizing communication strategies (i.e. , over annunciating, speaking slower) which help improve his intelligibility when communicating with others. Food and Liquid Trials Position During Assessment Upright (90 degrees),In chair Liquids Trialed Ice chips,Thin Solids Trialed Puree,Dysphagia Mechanical, Dysphagia Advanced,Mechanical Soft Administration Type Tea spoon,Cup single sip, Controlled cup sip,Self- feeding Oral Impairment Moderately impaired Oral Phase Comments OME resulted in incoordinated movements and some reduced strength in his lips/tongue. Pt presented with jerky movements and some anterior spillage was noted during trials of thin liquids. Pt required a slightly longer time to masticate mechanical soft solids. When checking for pocketing, oral cavity was clear. Pharyngeal Impairment Moderately impaired Pharyngeal Phase Comments Laryngeal palpation indicated that there is some reduced hyolaryngeal elevation and anterior hyoid excursion. When pt did not utilize safe swallow strategies (e.g., eat slow, take small bites, chin tuck), a delayed coughed was heard. Pt reported he typically eats quickly and takes large bites when consuming solids. When pt was utilizing strategies, no overt s/sx of aspiration were noted. No wet/gurgly voice observed. However, this does not rule out the possibility of silent aspiration occurring . Fatigue/Endurance Mild fatigue Comment Pt appeared to be fatigued towards the end of the assessment. Of note, pt was impulsive when eating/drinking . Verbal reminders form ST to slow down or take smaller bites appeared effective. After intermittent verbal cueing, the pt was using strategies independently. Verbal reminders appeared less effective when pt began to fatigue. Strategies Attempted Chin tuck Response/Comments Pt reported that in speech therapy in the past he used this strategy when eating/ drinking. No overt s/sx of aspiration was noted when he used this strategy. Findings Swallowing Function Oropharyngeal phase dysphagia Severity of Swallow Impairment Moderately impaired Contributing Factors to Swallow Reduced alertness or attention Impairment ,Reduced oral strength/ coordination/sensation,Reduced laryngeal excursion Prognosis Guarded Based on Cognitive status,History of aspiration/aspiration pneumonia,Comorbidities, Duration of symptoms/severity, Other (comment) Comment Pt's impulsiveness can be a hindrance to progress. Impact on Safety and Functioning Risk for aspiration,Risk for inadequate nutrition/hydration Recommendations Instrumental Assessment No Swallowing Treatment Yes Frequency x1-x2 Recommended Solids Dysphagia Advanced Recommended Liquids Thin Safety Precautions/Swallowing 1 to 1 distant supervision, Recommendations Feed only when alert,Reduce distractions,Remain upright ( 90 degrees) during all oral intake,Needs verbal cues to use recommended strategies, Small bites and sips when eating,Slow rate; swallow between bites,No straw Medication Recommendations As Tolerated Discharge Recommendations Home with Home Health Education Patient/Caregiver Education Described results of evaluation,Patient expressed understanding of evaluation, Patient expressed agreement with goals & treatment plans, Family/caregivers expressed understanding of evaluation, Family/caregivers expressed agreement with goals & treatment plans,Patient expressed understanding of safety precautions,Patient expressed understanding of feeding recommendations,Family /caregivers expressed understanding of safety precautions,Family/caregivers expressed understanding of feeding recommendations,Family /caregivers require further education/training Goals Short-term Goals Pt and family will participate in further education: the swallowing mechanism, dysarthria therapy, further safe swallow strategies. Pt will utilize safe swallowing strategies with verbal and visual reminders to reduce the risk of aspiration . Pt may benefit from cognitive assessment to determine if there is a need in this area. Long-term Goals Pt will tolerate least restrictive diet without demonstrating overt s/sx of aspiration. Pt will utilize safe swallowing strategies independently to reduce the risk of aspiration.
[2021-01-29] MEDS: WARFARIN 5 MG TABLET 3.75 MG PO (17:55)
[2021-01-29] MEDS: cefTRIAXone 1,000 MG in SODIUM CHLORIDE 0.9% 100 ML 200 ML IV (18:13)
--- NOTE | 2021-01-29 19:28 | PC.NURSE ---
Evening shift note: Notified Dr Agrawal that pt has converted to A-Fib with a rate of 50bpm, pt is asymptomatic, stat EKG ordered, will continue to monitor
[2021-01-29] MEDS: SENNOSIDES 8.6 MG TABLET 17.2 MG PO (20:46)
[2021-01-29] MEDS: INSULIN LISPRO 100 UNIT/ML 3ML VIAL SUBCUT (20:46)
[2021-01-30] VITALS: O2SAT 94
[2021-01-30 04:00] VITALS: O2SAT 93
[2021-01-30 04:22] VITALS: BP 125/65; PULSE 54; RESP 18; TEMP 36.6; O2SAT 93
[2021-01-30 04:54] LABS: Add Manual Diff / Slide Review NO; Basophils Absolute Auto 0 /uL (0-100); Basophils Percent Auto 0.3 % (0-2); Eosinophils Absolute Auto 0 /uL (0-450); Eosinophils Percent Auto 0.1 % (2-4); Hematocrit 32.3 % (41-53); Hemoglobin 10.1 g/dL (13.5-17.5); Lymphocytes Absolute Auto 1800 /uL (1100-4500); Lymphocytes Percent Auto 12.4 % (25-40); Mean Corpuscular HGB Conc 31.4 % (30-36); Mean Corpuscular Hemoglobin 26.9 PG (26-34); Mean Corpuscular Volume 85.7 fL (80-100); Monocytes Absolute Auto 1100 /uL (0-900); Monocytes Percent Auto 7.8 % (3-14); Neutrophils Absolute Auto 11300 /uL (1500-7000); Neutrophils Percent Auto 79.4 % (50-75); Platelet Count 178 X10^3/uL (150-400); Red Blood Cell Count 3.78 X10^6/uL (4.5-5.9); Red Cell Distribution Width 18.3 % (11.6-14.8); White Blood Cell Count 14.2 X10^3/uL (4.5-11.0)
[2021-01-30 04:55] LABS: Alanine Aminotransferase 17 IU/L (<50); Albumin 2.8 g/dL (3.5-5.0); Albumin Globulin Ratio 0.9 (1.0-2.8); Alkaline Phosphatase 69 U/L (38-126); Aspartate Aminotransferase 21 IU/L (17-59); BUN Creatinine Ratio 27.5 (6-22); Bilirubin Total 0.2 mg/dL (0.2-1.3); Blood Urea Nitrogen 39 mg/dL (9-20); Calcium 9.1 mg/dL (8.4-10.2); Carbon Dioxide 28 mmol/L (22-32); Chloride 107 mmol/L (98-107); Estimated Glomerular Filt Rate 48.5 mL/min (>60); Glucose 124 mg/dL (80-110); HEMOLYSIS < 15 (0-50); Potassium 4.2 mmol/L (3.4-5.1); Sodium 137 mmol/L (137-145); Total Protein 5.8 g/dL (6.3-8.2)
--- NOTE | 2021-01-30 06:02 | PC.NURSE ---
Notified ANIBAL Viramontes of pt's. increased WBC of 14.2 as well as elevated neutrophils but pt. is afebrile.
[2021-01-30 07:50] VITALS: BP 133/65; PULSE 46; RESP 16; TEMP 36.2; O2SAT 95
[2021-01-30 08:00] VITALS: PULSE 40; RESP 15; O2SAT 92; O2SAT 93
[2021-01-30] MEDS: BUSPIRONE 5 MG TABLET 7.5 MG PO (08:32)
[2021-01-30] MEDS: ATORVASTATIN 20 MG TABLET PO (08:32)
[2021-01-30] MEDS: ASPIRIN EC 81 MG TABLET PO (08:32)
[2021-01-30] MEDS: predniSONE 20 MG TABLET 40 MG PO (08:32)
[2021-01-30] MEDS: LEVOTHYROXINE 75 MCG TABLET PO (08:33)
[2021-01-30] MEDS: DOXYCYCLINE 100 MG in SODIUM CHLORIDE 0.9% 100 ML IV (08:37)
[2021-01-30] MEDS: DESMOPRESSIN 0.2 MG TABLET 0.6 MG PO (08:37)
--- NOTE | 2021-01-30 10:36 | PT.IPTN ---
Current Diagnoses Pneumonia, unspecified organism (01/28/21) Physical Therapy Treatment Note M2 PT-IP Current Condition Start: 01/29/21 14:06 Freq: NEEDED Status: Active Protocol: Document 01/29/21 13:15 AB (Rec: 01/29/21 14:32 AB [id number]) Physical Therapy Current Condition Current Condition Evaluation Date 01/29/21 Treatment Diagnosis UTI; PNA; difficulty in walking Onset Date 01/28/21 Precautions Other Precautions falls; bradycardia M3 PT-IP Subjective Start: 01/29/21 14:06 Freq: NEEDED Status: Active Protocol: Document 01/30/21 10:11 KS (Rec: 01/30/21 12:02 KS [id number]) Subjective Physical Therapy Visit Type Type Treatment Note Visit Start Time 10:11 Visit Stop Time 10:36 Total Visit Minutes 25 Notes Pts present throughout tx Number of CARDIOLOGY SPECIALIST Visits 1 Physical Therapy Visit Comments Patient Comments agreeable to do PT Therapy Pain Assessment Pain Present Pain Present Denied Pain M4 PT-IP Mobility and Gait Start: 01/29/21 14:06 Freq: NEEDED Status: Active Protocol: Document 01/30/21 10:11 KS (Rec: 01/30/21 12:02 KS [id number]) PT-Bed Mobility Assessment Supine to Sit Supine to Sit Standby Assistance Scooting Scooting to Edge of Bed Standby Assistance PT-Transfer Assessment Sit to and From Stand Sit to and from Stand Minimal Assistance,1 Person Assistance,Use of Upper Extremities Equipment Transfer Assistive Device Gait Belt,4 Wheeled Walker Orthotic/Prosthetic Devices or Brace: No Transfers Transfer Destination Bed Transfer Technique ambulated using 4WW Transfer Ability Level of Assist Contact Guard Assistance, Minimal Assistance,1 Person Assistance,Use of Upper Extremities Comments Mobility Comments Pt in bed upon arrival from PT . Pt performed 1x10 bilateral ankle pumps, SLR, heel slides, quad sets, and glute sets. Pt then sup<>sit and sccoted EOB SBA. Pt completed 1x10 seated marches at EOB. Pts ( former CARDIOLOGY SPECIALIST) applied gait belt and provided min A for sit<> stand w/ 4WW. Pt denied SOB or lightheadedness. Pt then ambulated ~150 ft w/ 4WW and CGA to Min A and cues provided safely by pts . Pt did not require any rest breaks during ambulation. Pt ambulated w/ decreased stride and foot clearance. Cues for 4WW management, but overall safe use and correct brake application when transferring. Pt is slightly impulsive and needs reminders to slow down. Returned to room, pt stand<> sit and sit<>sup SBA to CGA. Pt able to readjust in bed SBA . Pt left in bed w/ alarm on, SCDs on, and all needs in reach. Gait Assessment Gait Gait Assistance Required: Contact Guard Assist,Minimum Assistance,1 Person Assist Distance (Feet) 150 Able to Maintain Weight Bearing Status Yes During Gait Assistive Devices Assistive Device Gait Belt,4 Wheeled Walker Orthotic/Prosthetic Devices or Brace: No Gait Deviations General Gait Pattern Ataxic,Decreased Stride Length ,Decreased Feet Clearance,Wide Based Gait Factors Limiting Gait Function Factors Limiting Gait Function Decreased Activity Tolerance, Decreased Strength,Difficulty Following Directions,Poor Balance,Poor Safety Awareness Comments Gait Comments please refer to mobility section for details PT-Balance Assessment Sitting Balance and Reactions Static Sitting Balance Ability Good Dynamic Sitting Balance Ability Fair Standing Balance and Reactions Static Standing Balance Ability Poor Dynamic Standing Balance Ability Poor Device Used FWW M5 PT-IP Objective Assessments Start: 01/29/21 14:06 Freq: NEEDED Status: Active Protocol: Document 01/29/21 13:15 AB (Rec: 01/29/21 14:32 AB [id number]) Orientation Orientation/Cognition Level of Alertness Alert Language Function Ability Garbled Speech,Hard of Hearing Safety Awareness Decreased Safety Awareness Memory Description Short Term Impaired Gross Range of Motion Lower Extremity ROM Assessment Within Functional Limits Strength Lower Extremity Strength Hip 4-/5 Knee 4-/5 Muscle Tone Muscle Tone WNL Yes M6 PT-IP Treatment Start: 01/29/21 14:06 Freq: NEEDED Status: Active Protocol: Document 01/30/21 12:03 KS (Rec: 01/30/21 12:03 KS [id number]) Physical Therapy Treatment Exercises Exercises Ankle Pumps,Gluteal Sets,Quad Sets,Heel Slides,Straight Leg Raises Other Treatments Other Treatment Performed Seated marching M7 PT-IP Assessment and Plan Start: 01/29/21 14:06 Freq: NEEDED Status: Active Protocol: Document 01/30/21 10:11 KS (Rec: 01/30/21 12:02 KS [id number]) PT Summary Assessment and Plan Potential Rehabilitation Potential Fair Status of Condition at Evaluation Evolving Summary Impairments Pain,ROM,Strength,Balance, Coordination,Sensation,Tone, Cognition,Bed Mobility, Transfers,Gait,Activity Tolerance Progress Towards Goals Progressing Toward Goals Assessment Summary Pt showed improvements with bed mobility and ambulation today, however reamins impulsive and off balance with retro lean. Pt SBA for bed mobility, CGA to Min A for transfers and ambulation with 4WW with cues for safety. Good tolerance for LE strengthening exercises and able to tolerate ~150 ft ambulation w/ 4WW. Pts was able to provide safe assistance and cues during ambulation as well as gaitbelt application. Pt would benefit from HHPT to improve balance and gait, however pt and do not think this is necessary at this time. Pts states she feels comfortable to assist pt at home as she has been. Goals Bed Mobility Goal Independent Transfer Goal Standby Assistance,Front Wheeled Walker,Four Wheeled Walker Gait Goal Standby Assistance,Front Wheel Walker,Four Wheel Walker Gait Distance 100 Days to Meet Goals 5 Frequency of Treatment Frequency Of Treatment Once a Day Treatment Plan Physical Therapy Treatment Plan Bed Mobility Training,Transfer Training,Gait Training, Therapeutic Exercise,Balance Retraining,Discharge Planning, Hot or Cold Pack,Neuromuscular Re-ed,Coordination Retraining Other Recommendations and Next Treatment Continued caregiver training, Focus increased ambulation w/ 4WW Precautions Other Precautions falls, bradycardia Recommendations To Nursing Amount of Assist Needed 1 Person Assist Discharge Recommendations PT Discharge Recommendations Home with 13/11 Assist Available,Home Health Transportation Needs at Discharge Private Vehicle
--- NOTE | 2021-01-30 10:43 | CM.DPC ---
Addendum entered by America Bass 01/30/21 13:27: Copy of ERICKA given to patient at approximately 9:0am today. ELIE Original Note: DCP/continued: Reviewed chart. Met with patient and spouse/Tahira at bedside explained CM/SW role. Patient reports that he hopes to d/c home today. SLIP SEAT COVERER spoke with provider and he reports that patient may d/c home today. Provider will make decision after he rounds on patient. Per patient and spouse they do not think that they would benefit from home health. Provider updated and in agreement. 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 P: Home when medically stable. Anticipate either today or tomorrow. ELIE
--- NOTE | 2021-01-30 11:05 | PM.DS.1 ---
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 Nursing staff was able to awaken him to transfer to wheelchair.? Patient typically does use a walker for ambulation but performs all other ADLs without assistance.? He follows with Dr. Ventura Carcamo & Dr. Eastman for his cardiology at [place].? Patient has had a cough for the past week which has been nonproductive, afebrile, not altered?prior to today.? He is back at his normal baseline mentation according to him and his in the room.? Patient denies any chest pain, chest pressure, no syncope, lightheadedness, difficulty swallowing, abd pain, nausea, vomiting.? He had 1 episode of diarrhea 5 days ago.? Patient denies melena, hematuria, hematemesis, dysuria, urgency or frequency.? He has had some chronic urinary retention in the past not persistently.? He has had lithotripsy before for kidney stones but they were told his kidneys were ?okay.?? He is on warfarin+ asa 81mg, atorvastatin, desmopressin, Lasix, levothyroxine and quetiapine.? Patient has not had any new acute medication changes.? He smokes cigars, occasional alcohol, no illicit.? Upon admit patient's vital stable with a BP 129/60, HR 48, R 19, O2 saturation 95% on room air.? Patient has elevated WBC 14.6, neutrophils 11,100, mono 1100, HGB 11.6, HCT 36.5.? Noted JASS BUN of 48, creatinine 2.17 previous was 0.80, GFR of 29.7, previous GFR> 60.? Urine is being cultured.? Initial troponin 0.019.? Lipase WNL, procalcitonin 0.56.? Head CT negative for any acute intracranial processes.? Patient's chest x-ray demonstrated mild bilateral pneumonia.? Patient's KUB demonstrated bilateral renal calculi associated with mild bilateral hydronephrosis.? Left basilar pneumonia with trace parapneumonic effusion. ?ED consulted Dr. Lombardi, Urology, who advised findings on CT and laboratory studies likely not needing immediate urological services.? Can be followed up on outpatient basis.? Recommend Pacheco catheter for urinary output. Per Dr. Peters ED patient's medical records from [facility] were obtained and he had UPJ stone with a bump in his creatinine to 1.4 as maximum in September.? Patient had lithotripsy.? Patient tested positive for Enterococcus and was started on IV antibiotics including daptomycin and was ultimately switched orals (3months).?After this is creatinine improved and was 0.92 in July of 2020 and had a right ureteral stent at that time.? Patient admitted with mild bilateral pneumonia with left trace parapneumonic effusion, Acute encephalopathy secondary to sepsis with JASS and without shock. Discharge Providers Provider Date of admission: 01/28/21 20:41 Discharge Date: 01/30/21 Primary care physician: Elbert Rowe MD Consults: 01/28/21 21:01 Consult to Respiratory Therapy Evaluate & Treat Comment: Bilateral pneum Physician Instructions: Evaluate and treat 01/29/21 13:10 Consult to Occupational Therapy Evaluate & Treat Comment: Physician Instructions: Evaluate and treat Consult to Physical Therapy Evaluate & Treat Comment: Physician Instructions: Evaluate and Treat 01/29/21 13:24 Consult to Speech Therapy Evaluate & Treat Comment: Physician Instructions: Evaluate and treat Discharge provider: Cristino Agrawal DO Summary Hospital Course Discharge Diagnosis: 1.Mild bilateral pneumonia, presume probable aspiration, with left trace parapneumonic effusion and elevated troponin, acute, present on admission 2. Sepsis with JASS without shock resulting in acute encephalopathy secondary to mild bilateral pneumonia and possible acute cystitis, acute, present on admission 3. Bilateral renal calculi, acute on chronic, present on admission. With possible acute on chronic cystitis. 4. Essential hypertension, chronic,? present on admission-well controlled 5. Hyperlipidemia, related to coronary artery disease, chronic, present on admission 6.?Non insulin-dependent type 2 diabetes, Diabetes insipidus, chronic, present on admission-stable 7.? Hypothyroidism, acquired, chronic, present on admission-stability unknown 8. 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 Patient was ultimately found to have a mild bilateral pneumonia, likely secondary to aspiration given his history of swallowing difficulties. And likely acute cystitis. His sofa score was 3 indicative of sepsis with JASS and acute encephalopathy secondary to these 2 processes. The patient improved quite quickly with initiation of ceftriaxone and doxycycline. Urine cultures ultimately did not grow any bacteria. Initial CT imaging also showed bilateral hydronephrosis, mild, which was discussed with the Dr. Lombardi, of Urology, who recommended Pacheco catheter placement and outpatient urology follow-up. After initiation of antibiotics, fluids, and Pacheco catheter placement the patient's creatinine continued to improve and was down to 1.42 on the day of discharge from 2.17. He was discharged on oral cefdinir and doxycycline to complete a total 7 day course. I do recommend follow-up with his urologist, as well as primary care provider ideally this week. Of note patient had a prior Enterococcus bacteremia from urinary source and kidney stone with right ureteral stent placement. He also had a prior history of difficulty swallowing in the past with prior aspiration per review of outside hospital records. Time Spent with Patient Time spent: Greater than 30 minutes Exam Vital Signs (past 8 hours): - 01/30/21 04:00 01/30/21 04:22 01/30/21 07:50 Temperature 97.8 F 97.2 F L Pulse Rate 54 L 46 L Respiratory Rate 18 16 Blood Pressure 125/65 133/65 Pulse Oximetry 93 93 95 01/30/21 08:00 Temperature Pulse Rate 40 L Respiratory Rate 15 Blood Pressure Pulse Oximetry 92 Oxygen Delivery Method Room Air Oxygen Flow Rate 0 Narrative Exam Narrative: General:? Patient is a well-developed, well-nourished? very drowsy elderly male, in no distress at this time. Lungs:? Auscultation of all lung elliott are clear without adventitious sounds, wheezes, rhonchi, or rales. Cardio:? Regular rate and rhythm without murmur, rub, or gallop. Abdomen:? Soft, nontender, and nondistended Musculoskeletal:? Muscle strength and tone are equal within normal limits, no deformity or joint effusion. Skin:? Warm dry and intact without rashes, ulcerations or petechiae.? Neuro:? Alert and orientated x3, strength is +5/5 in all extremities, sensation to touch intact, no gross deficits noted of cranial nerves. Psych:? Patient has a well-kept appearance, cooperative, pleasant. Objective Labs Result Diagrams: 01/30/21 04:35 01/30/21 04:35 Labs: Laboratory Results - last 24 hr 01/29/21 01/30/21 01/30/21 10:45 04:35 04:35 WBC 14.2 H RBC 3.78 L Hgb 10.1 L Hct 32.3 L MCV 85.7 MCH 26.9 MCHC 31.4 RDW 18.3 H Plt Count 178 Neut % (Auto) 79.4 H Lymph % (Auto) 12.4 L Hockley % (Auto) 7.8 Eos % (Auto) 0.1 L Baso % (Auto) 0.3 Neut # (Auto) 34336 H Lymph # (Auto) 1800 [place] # (Auto) 1100 H Eos # (Auto) 0 Baso # (Auto) 0 Sodium 137 Potassium 4.2 Chloride 107 Carbon Dioxide 28 BUN 39 H Creatinine 1.42 H Estimated GFR 48.5 L BUN/Creatinine Ratio 27.5 H Glucose 124 H Calcium 9.1 Total Bilirubin 0.2 AST 21 ALT 17 Alkaline Phosphatase 69 Troponin I 0.015 Total Protein 5.8 L Albumin 2.8 L Globulin 3.0 Albumin/Globulin Ratio 0.9 L [facility] Medical History (Updated 01/29/21 @ 03:58 by PASQUALE Badillo) Cerebellar ataxia Chest pain due to CAD Coronary artery disease CVA (cerebral vascular accident) Diabetes insipidus Hypothyroidism 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) Non-insulin dependent type 2 diabetes mellitus Prostate cancer Surgical History (Updated 01/29/21 @ 03:58 by PASQUALE Badillo) History of heart artery stent History of heart bypass surgery Family History Mother Breast cancer Father Lung cancer Alcoholism in family member Social History household members: spouse Smoking Status: Current every day smoker second hand exposure: No alcohol intake: never substance use type: does not use Discharge Plan Discharge Plan Patient Disposition: Home Provider Discharge Comment: You were admitted to the hospital with possible aspiration pneumonia, possible uti, urinary obstruction and JASS. you improved with antibiotics and pacheco catheter. Discharge orders & Medications Prescriptions: New cefdinir 300 mg capsule 300 mg PO BID 5 Days Qty: 10 RF: 0 doxycycline hyclate 100 mg capsule 100 mg PO BID 5 Days Qty: 10 RF: 0 Continued warfarin 2.5 mg tablet See Rx Instructions PO DAILY RF: 0 aspirin 81 mg Tablet,Delayed Release (Dr/Ec) 81 mg PO DAILY RF: 0 atorvastatin 20 mg Tablet 20 mg PO DAILY RF: 0 buspirone 7.5 mg Tablet 7.5 mg PO BID RF: 0 cholecalciferol (vitamin D3) 1,000 units PO BID RF: 0 desmopressin 0.2 mg Tablet 0.6 mg PO BID RF: 0 levothyroxine 75 mcg Tablet 75 mcg PO DAILY RF: 0 Follow up/Referrals: Michael Lombardi MD [Physician] - (PLEASE CALL SUNDAY AM AND SCHEDULE OUT-PT FOLLOW UP RE: PACHECO CATHETER) Elbert Rowe MD [Primary Care Provider] - Diet/Activity/Treatments Diet: Diet as Tolerated Activity: As tolerated Catheter comment: PLEASE LEAVE IN UNTIL FOLLOW UP WITH UROLOGY AN OUT PT Visit Report/Discharge Packet Instructions: How to Care for Your Pacheco Catheter -- Male Discharge Data Primary Care Provider: Elbert Rowe Quality VTE Deep Vein Thrombosis/Pulmonary Embolism Present on Admission: No
--- NOTE | 2021-01-30 12:30 | PC.NURSE ---
pt prepared for discharge by reviewing catheter care practices for home garay care as well as leg bag use --- both felt confident in this and will follow up with pt's urologist - calling in am for follow up appt. iv removed and pt cleaned up and discharged to home following lengthy conversation re: post hospitalization antibiotic therapy- all questions answered to their satisfaction
== END 2021-01-30 12:29 | disposition home or self-care (01) | DRG 871 ==
LOC: ED 20:38 → AC 20:42 → ICU 21:21
PROVIDERS: Emergency Medicine; Admitting Provider Nurse Practitioner Family; Emergency Provider Emergency Medicine; PCP Internal Medicine; Referring Provider Emergency Medicine; Visit Provider Nurse Practitioner Family
DX: A41.9 Sepsis, unspecified organism (principal); J69.0 Pneumonitis due to inhalation of food and vomit; G93.41 Metabolic encephalopathy; J90 Pleural effusion, not elsewhere classified; N17.9 Acute kidney failure, unspecified; N13.2 Hydronephrosis with renal and ureteral calculous obstruction; N30.00 Acute cystitis without hematuria; E23.2 Diabetes insipidus; R13.12 Dysphagia, oropharyngeal phase; I48.0 Paroxysmal atrial fibrillation; R65.20 Severe sepsis without septic shock; I69.393 Ataxia following cerebral infarction; F17.290 Nicotine dependence, other tobacco product, uncomplicated; E78.5 Hyperlipidemia, unspecified; I25.10 Atherosclerotic heart disease of native coronary artery without angina pectoris; E03.9 Hypothyroidism, unspecified; I69.898 Other sequelae of other cerebrovascular disease; F39 Unspecified mood [affective] disorder; Z20.822 Contact with and (suspected) exposure to COVID-19; Z95.1 Presence of aortocoronary bypass graft; Z79.01 Long term (current) use of anticoagulants; Z95.2 Presence of prosthetic heart valve; Z79.84 Long term (current) use of oral hypoglycemic drugs
CPT/HCPCS: 36415; 70450; 71045; 74176; 80053; 81003; 81015; 82550; 82553; 82962; 83605; 83690; 83735; 83880; 84145; 84443; 84484; 85025; 85610; 85730; 86140; 87040; 87086; 87633; 87635; 87797; 92610; 93005; 93010; 94760; 96361; 96365; 96367; 97116; 97162; 97166; 97530; 99285; C9803; J0696; J1815